=== PATIENT | female | born 1945 | race Caucasian/White ===

== ENCOUNTER 2017-11-26 11:00 | Inpatient (IN) | payer MEDICARE ==
--- NOTE | 2017-11-26 11:49 | ER Document Report ---
ED General - General Chief Complaint: Shortness Of Breath Stated Complaint: SHORTNESS OF BREATH Time Seen by Provider: 11/26/17 11:37 Notes: 72-year-old female presents with cough, productive, constant, it. Initially associated with vomiting, now she only vomits "when I eat." No abdominal pain or weakness. She was seen at [facility], did not get a chest x-ray, was diagnosed with gastroenteritis, and was sent home after labs were drawn. She was then told today to come in because her labs were abnormal. She is not exactly sure which labs are abnormal. She denies shortness of breath. No fevers. 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 - Related Data Allergies/Adverse Reactions: Eefsgnl-Hfu-Qaf Reductase Inhibitor Allergy (Verified 11/26/17 11:07) Sulfa (Sulfonamide Antibiotics) Allergy (Verified 11/26/17 11:07) Past Medical History - Social History Smoking Status: Never Smoker Family History: None Review of Systems - Review of Systems Notes: REVIEW OF SYSTEMS GEN: Denies fever, chills, weight loss ENT: Denies sore throat, nasal discharge, ear pain EYES: Denies blurry vision, eye pain, discharge CV: Denies chest pain, palpitations, edema RESP: Cough no shortness of breath GI: Denies abdominal pain, n positive nausea no vomiting MSK: Denies joint pain/swelling, edema, SKIN: Denies rash, skin lesions LYMPH: Denies swollen glands/lymph nodes NEURO: Denies headache, focal weakness or numbness, dizziness PSYCH: Denies depression, suicidal or homicidal ideation PHYSICAL EXAMINATION General: No acute distress, well-nourished Head: Atraumatic, normocephalic ENT: Mouth normal, oropharynx moist, no exudates or tonsillar enlargement Eyes: Conjunctiva normal, pupils equal, lids normal Neck: No JVD, supple, no guarding CVS: Normal rate, regular rhythm, no murmurs Resp: No resp distress, equal and normal breath sounds bilaterally. Wet cough. GI: Nondistended, soft, no tenderness to palpation, no rebound or guarding Ext: No deformities, no edema, normal range of motion in upper and lower ext Back: No CVA or midline TTP Skin: No rash, warm Lymphatic: No lymphadeopathy noted Neuro: Awake, alert. Face symmetric. GCS 15. Physical Exam - Vital signs Vitals: Resp BP Pulse Ox 17 127/62 H 97 11/26/17 12:27 11/26/17 12:27 11/26/17 12:27 Course - Re-evaluation Re-evalutation: 11/26/17 11:49 72-year-old female presents with productive cough without hypoxia or focal lung findings. Apparently she had abnormal labs as an outpatient. Clinically she has bronchitis versus mild pneumonia, I doubt sepsis. She has some nausea but has not vomited and her abdominal exam is benign today. I will repeat her labs and get a chest x-ray to rule out developing pneumonia or effusion. This does not sound cardiac. 11/26/17 12:20. Platelets are 2-1/2 million a white count is significantly elevated. Patient also has hypokalemia. Formal lab results are pending. ordered potassium and magnesium repletion. 11/26/17 12:[address] Lombardi from oncology does not think this reflects acute leukemia but rather a myeloproliferative disorder. Patient will be admitted for elective light repletion and dehydration and he will consult. [facility] x-ray looks clear, do not think she needs antibiotics at this time. - Vital Signs Vital signs: Temp Pulse Resp BP Pulse Ox 17 127/62 H 97 11/26/17 12:27 11/26/17 12:27 11/26/17 12:27 - Laboratory Result Diagrams: 11/26/17 11:20 11/26/17 11:20 Laboratory results interpreted by me: 11/26/17 11/26/17 11:20 11:20 WBC 32.0 H* Hgb 10.7 L Hct 32.4 L RDW 15.4 H Plt Count 2851 H* Seg Neuts % (Manual) 91 H Band Neutrophils % 2 L Lymphocytes % (Manual) 5 L Monocytes % (Manual) 2 L Abs Neuts (Manual) 29.8 H Sodium 131.4 L Potassium 2.6 L* Chloride 90 L BUN 40 H Est GFR (Non-Af Amer) 55 L Critical Care Note - Critical Care Note Total time excluding time spent on procedures (mins): 32 - The above patient is critically ill. Not including procedures, but including direct re-evaluations, speaking with patient and/or consultants, interpreting results, and documenting , I spent the total amount of minute listed listed above on critical care time Discharge - Discharge Clinical Impression: Hypokalemia, Thrombocytosis Condition: Fair Disposition: ADMITTED INPATIENT Admitting Provider: Hospitalist Unit Admitted: Medical Floor
[2017-11-26 11:55] LABS: HEMATOCRIT 32.4 % (36.0-47.0); HEMOGLOBIN 10.7 g/dL (12.0-15.5); MEAN CORPUSCULAR HEMOGLOBIN 28.7 pg (27.0-33.4); MEAN CORPUSCULAR HGB CONC 32.9 g/dL (32.0-36.0); MEAN CORPUSCULAR VOLUME 87 fl (80-97); RED BLOOD COUNT 3.72 10^6/uL (3.72-5.28); RED CELL DISTRIBUTION WIDTH 15.4 % (11.5-14.0)
[2017-11-26 12:00] LABS: PLATELET COUNT 2851 10^3/uL (150-450)
[2017-11-26 12:12] LABS: ANION GAP 16 (5-19); BLOOD UREA NITROGEN 40 mg/dL (7-20); CALCIUM 9.5 mg/dL (8.4-10.2); CARBON DIOXIDE 25 mmol/L (22-30); CHLORIDE 90 mmol/L (98-107); GLUCOSE 89 mg/dL (75-110); SODIUM 131.4 mmol/L (137-145)
[2017-11-26 12:14] LABS: POTASSIUM 2.6 mmol/L (3.6-5.0)
[2017-11-26] MEDS ORDERED: NORMAL SALINE 1000 ML 1,000 ML IV ONE (12:19)
[2017-11-26] MEDS ORDERED: MAGNESIUM SULFATE/D5W 1 GM/100 ML RTUPB IV ONE (12:19)
[2017-11-26 12:22] LABS: ABSOLUTE LYMPHOCYTES# (MANUAL) 1.6 10^3/uL (0.5-4.7); ABSOLUTE MONOCYTES # (MANUAL) 0.6 10^3/uL (0.1-1.4); ABSOLUTE NEUTROPHILS# (MANUAL) 29.8 10^3/uL (1.7-8.2); ANISOCYTOSIS SLIGHT; BAND NEUTROPHILS % (MANUAL) 2 % (3-5); BASOPHILS % (MANUAL) 0 % (0-2); EOSINOPHILS % (MANUAL) 0 % (0-6); HYPOCHROMASIA SLIGHT; LYMPHOCYTES % (MANUAL) 5 % (13-45); MONOCYTES % (MANUAL) 2 % (3-13); PLATELET COMMENT INCREASED; POLYCHROMASIA SLIGHT; SEGMENTED NEUTROPHILS % (MAN) 91 % (42-78); TOTAL CELLS COUNTED 100; TOXIC GRANULATION 1+; TOXIC VACUOLATION PRESENT
[2017-11-26] MEDS: POTASSI CL 20 MEQ/50 ML RIDER 20 MEQ/50 ML RTUPB IV SCH ×3 (12:34→19:08)
[2017-11-26] MEDS ORDERED: ACETAMINOPHEN 325 MG TABLET PO PRN (12:35)
[2017-11-26] MEDS ORDERED: POTASSIUM CHLORIDE 20 MEQ/15 ML UDCUP PO ONE (12:58)
--- NOTE | 2017-11-26 13:03 | RADIOLOGY REPORT (SQ) ---
EXAM DESCRIPTION: CHEST SINGLE VIEW COMPLETED DATE/TIME: 11/26/2017 12:17 pm REASON FOR STUDY: shortness or breatg COMPARISON: None. EXAM PARAMETERS: NUMBER OF VIEWS: One view. TECHNIQUE: Single frontal radiographic view of the chest acquired. RADIATION DOSE: NA LIMITATIONS: None. FINDINGS: LUNGS AND PLEURA: No opacities, masses or pneumothorax. No pleural effusion. MEDIASTINUM AND HILAR STRUCTURES: No masses. Contour normal. HEART AND VASCULAR STRUCTURES: Heart normal in size. Normal vasculature. BONES: No acute findings. HARDWARE: None in the chest. OTHER: No other significant finding. IMPRESSION: NO ACUTE RADIOGRAPHIC FINDING IN THE CHEST. TECHNICAL DOCUMENTATION: JOB ID: [id number] [employer]- All Rights Reserved
[2017-11-26] MEDS ORDERED: ENOXAPARIN SODIUM INJ 40 MG/0.4 ML DISP.SYRIN SUBCUT ONE (20:00)
[2017-11-26] MEDS: POTASSI CL 40 MEQ/NS 1L 1,000 ML IV PRN (20:03)
[2017-11-27] MEDS ORDERED: LEVOTHYROXINE SODIUM 0.1 MG TABLET PO SCH (06:00)
[2017-11-27] MEDS ORDERED: LEVOTHYROXINE SODIUM 0.025 MG TABLET PO SCH (06:00)
[2017-11-27] MEDS: LANSOPRAZOLE 30 MG TAB.RAP.DR PO SCH (06:23)
[2017-11-27 07:08] LABS: HEMATOCRIT 26.4 % (36.0-47.0); HEMOGLOBIN 8.8 g/dL (12.0-15.5); MEAN CORPUSCULAR HEMOGLOBIN 28.9 pg (27.0-33.4); MEAN CORPUSCULAR HGB CONC 33.1 g/dL (32.0-36.0); MEAN CORPUSCULAR VOLUME 87 fl (80-97); RED BLOOD COUNT 3.03 10^6/uL (3.72-5.28)
[2017-11-27 07:27] LABS: ANION GAP 10 (5-19); BLOOD UREA NITROGEN 25 mg/dL (7-20); CARBON DIOXIDE 24 mmol/L (22-30); CHLORIDE 100 mmol/L (98-107); GLUCOSE 133 mg/dL (75-110); MAGNESIUM 2.2 mg/dL (1.6-2.3); SODIUM 133.5 mmol/L (137-145)
[2017-11-27 07:35] LABS: POTASSIUM 4.7 mmol/L (3.6-5.0)
[2017-11-27 07:42] LABS: FREE T3 1.51 pg/mL (2.77-5.27); FREE T4 (FREE THYROXINE) 2.73 ng/dL (0.78-2.19)
[2017-11-27 07:56] LABS: THYROID STIMULATING HORMONE 0.14 uIU/mL (0.47-4.68)
[2017-11-27 08:02] LABS: PLATELET COUNT 2113 10^3/uL (150-450)
[2017-11-27] MEDS: ASPIRIN 81 MG TABLET, CHEWABLE PO SCH (09:16)
[2017-11-27] MEDS: POTASSI CL 40 MEQ/NS 1L 1,000 ML IV PRN (09:16)
[2017-11-27] MEDS: FENOFIBRATE NANOCRYSTALLIZED 48 MG TABLET PO SCH (09:16)
[2017-11-27] MEDS ORDERED: LEVOTHYROXINE SODIUM 0.125 MG PO SCH (10:00)
[2017-11-27] MEDS ORDERED: FENOFIBRIC ACID PO SCH (10:00)
[2017-11-27] MEDS ORDERED: ENOXAPARIN SODIUM INJ 40 MG/0.4 ML DISP.SYRIN SUBCUT SCH (10:00)
[2017-11-27] MEDS: NORMAL SALINE 1000 ML 1,000 ML IV PRN ×2 (13:34→23:25)
[2017-11-27] MEDS ORDERED: BENZONATATE 100 MG CAPSULE PO ONE (14:45)
[2017-11-27] MEDS: BENZONATATE 100 MG CAPSULE PO SCH (21:22)
[2017-11-27] MEDS: HYDROCODONE BIT/HOMATROPINE 5-1.5 MG TABLET PO PRN (23:22)
[2017-11-28 04:49] LABS: MEAN CORPUSCULAR HEMOGLOBIN 28.9 pg (27.0-33.4); MEAN CORPUSCULAR HGB CONC 33.1 g/dL (32.0-36.0); MEAN CORPUSCULAR VOLUME 87 fl (80-97); RED BLOOD COUNT 2.75 10^6/uL (3.72-5.28); RED CELL DISTRIBUTION WIDTH 15.1 % (11.5-14.0); WHITE BLOOD COUNT 21.3 10^3/uL (4.0-10.5)
[2017-11-28 05:02] LABS: ANION GAP 6 (5-19); BLOOD UREA NITROGEN 15 mg/dL (7-20); CALCIUM 8.8 mg/dL (8.4-10.2); CARBON DIOXIDE 22 mmol/L (22-30); CHLORIDE 109 mmol/L (98-107); GLUCOSE 103 mg/dL (75-110); MAGNESIUM 1.8 mg/dL (1.6-2.3); POTASSIUM 4.3 mmol/L (3.6-5.0); SODIUM 137.3 mmol/L (137-145)
[2017-11-28 05:08] LABS: ABSOLUTE LYMPHOCYTES# (MANUAL) 2.1 10^3/uL (0.5-4.7); ABSOLUTE MONOCYTES # (MANUAL) 1.7 10^3/uL (0.1-1.4); ABSOLUTE NEUTROPHILS# (MANUAL) 17.3 10^3/uL (1.7-8.2); BAND NEUTROPHILS % (MANUAL) 2 % (3-5); BASOPHILS % (MANUAL) 0 % (0-2); EOSINOPHILS % (MANUAL) 1 % (0-6); LYMPHOCYTES % (MANUAL) 10 % (13-45); MONOCYTES % (MANUAL) 8 % (3-13); SEGMENTED NEUTROPHILS % (MAN) 79 % (42-78); TOTAL CELLS COUNTED 100
[2017-11-28 05:09] LABS: ANISOCYTOSIS 1+; PLATELET COMMENT INCREASED; TOXIC GRANULATION 1+
[2017-11-28 05:12] LABS: HEMOGLOBIN 7.9 g/dL (12.0-15.5); PLATELET COUNT 1722 10^3/uL (150-450)
[2017-11-28] MEDS: BENZONATATE 100 MG CAPSULE PO SCH ×3 (05:34→21:53)
[2017-11-28] MEDS: LANSOPRAZOLE 30 MG TAB.RAP.DR PO SCH (05:34)
[2017-11-28] MEDS: NORMAL SALINE 1000 ML 1,000 ML IV PRN ×2 (05:38→10:02)
[2017-11-28] MEDS: FENOFIBRATE NANOCRYSTALLIZED 48 MG TABLET PO SCH (10:02)
[2017-11-28] MEDS: ASPIRIN 81 MG TABLET, CHEWABLE PO SCH (10:02)
[2017-11-28] MEDS ORDERED: NORMAL SALINE 250 ML IV PRN ×3 (10:52→10:53)
[2017-11-28] MEDS ORDERED: DIPHENHYDRAMINE HCL 25 MG CAPSULE PO PRN (10:53)
[2017-11-28] MEDS ORDERED: FUROSEMIDE 20 MG TABLET PO PRN (10:53)
[2017-11-28] MEDS ORDERED: ACETAMINOPHEN 325 MG TABLET PO PRN (10:53)
[2017-11-28] MEDS ORDERED: PANTOPRAZOLE SODIUM 80 MG in NORMAL SALINE 100 ML IV ONE ×2 (10:55→13:00)
[2017-11-28 11:13] LABS: IRON(TIBC) 64.9 ug/dL (37-170)
[2017-11-28 11:17] LABS: ABSOLUTE RETICS # 0.029 10^6/uL (0.028-0.122); RETICULOCYTE COUNT (AUTO) 1.06 % (0.66-2.85)
--- NOTE | 2017-11-28 11:58 | PDOC CONSULTATION ---
Consultation Consult Date: 11/28/17 Attending physician:: LE DEL TORO Consult reason:: Leukocytosis, anemia, thrombocytosis History of Present Illness Admission Date/PCP: 11/26/17 12:42 Patient complains of: Weakness, dark stool, nausea and vomiting History of Present Illness: 72-year-old female, who does not really have history of much medical problems, except diverticulitis, last colonoscopy was 8 years ago. Last week she began feeling very fatigued, apparently her coworkers noted that she should really go to the doctor, soon after feeling weak she began having nausea and vomiting, as well as persistent passing of dark stool, this began about 1 week ago and continued through [place], the day after [place] patient went to her PCP, was felt to have a gastroenteritis ongoing, and was recommended to have good oral hydration, did have a CBC drawn and was contacted about it the next day. The CBC indicated a total white count of nearly 30,000, hemoglobin 10, but platelets were over 2 million. She was recommended for admission, she came to the ED, at that time she seemed very weak, and repeat CBC indicated the same counts. Since being in she has had good hydration, but she continued to pass dark stools, she had a stool study this morning and Hemoccult was positive. Although the nausea was discontinued, and she is able to keep down clear liquids over the last 24 hours. She has passed gas over the last 24 hours as well. Past Medical History Cardiac Medical History: Reports: None Pulmonary Medical History: Reports: None EENT Medical History: Reports: None GI Medical History: Reports: Diverticulitis Hematology: Reports: None Past Surgical History Past Surgical History: Reports: Other - Colonoscopy Social History Information Source: Patient Smoking Status: Never Smoker Frequency of Alcohol Use: Rare Hx Recreational Drug Use: No Drugs: None Hx Prescription Drug Abuse: No - Advance Directive Resuscitation Status: Full Code Family History Family History: None Parental Family History Reviewed: Yes Children Family History Reviewed: Yes Sibling(s) Family History Reviewed.: Yes Medication/Allergy Home Medications: Fenofibric Acid [Fibricor] 105 mg PO DAILY 11/26/17 Levothyroxine Sodium [Synthroid] 0.125 mg PO DAILY 11/26/17 Losartan/Hydrochlorothiazide [Losartan-Hctz 100-25 mg Tab] 1 tab PO DAILY Allergies/Adverse Reactions: Geebadt-Rrx-Rlc Reductase Inhibitor Allergy (Verified 11/26/17 11:07) Sulfa (Sulfonamide Antibiotics) Allergy (Verified 11/26/17 11:07) Review of Systems Constitutional: PRESENT: fatigue, weakness Cardiovascular: PRESENT: dyspnea on exertion Respiratory: PRESENT: cough, dyspnea Gastrointestinal: PRESENT: melena, nausea Neurological: PRESENT: weakness Physical Exam Vital Signs: Temp Pulse Resp BP Pulse Ox 98.4 F 69 22 H 134/57 H 95 11/28/17 07:45 11/28/17 07:45 11/28/17 07:45 11/28/17 07:45 11/28/17 07:45 Intake & Output 11/27/17 11/28/17 11/29/17 06:59 06:59 06:59 Intake Total 940 3967 Balance 940 3967 Weight 66.1 kg 68.2 kg General appearance: PRESENT: no acute distress, well-developed, well-nourished Head exam: PRESENT: atraumatic, normocephalic Eye exam: PRESENT: conjunctiva pink, EOMI, PERRLA. ABSENT: scleral icterus Ear exam: PRESENT: normal external ear exam Mouth exam: PRESENT: moist, tongue midline Neck exam: ABSENT: carotid bruit, JVD, lymphadenopathy, thyromegaly Respiratory exam: PRESENT: clear to auscultation mane. ABSENT: rales, rhonchi, wheezes Cardiovascular exam: PRESENT: RRR. ABSENT: diastolic murmur, rubs, systolic murmur Pulses: PRESENT: normal dorsalis pedis pul Vascular exam: PRESENT: normal capillary refill GI/Abdominal exam: PRESENT: normal bowel sounds, soft. ABSENT: distended, guarding, mass, organolmegaly, rebound, tenderness Rectal exam: PRESENT: deferred Extremities exam: PRESENT: full ROM. ABSENT: calf tenderness, clubbing, pedal edema Neurological exam: PRESENT: alert, awake, oriented to person, oriented to place , oriented to time, oriented to situation, CN II-XII grossly intact. ABSENT: motor sensory deficit Psychiatric exam: PRESENT: appropriate affect, normal mood. ABSENT: homicidal ideation, suicidal ideation Skin exam: PRESENT: dry, intact, warm. ABSENT: cyanosis, rash Results Laboratory Results: 11/28/17 04:26 11/28/17 04:26 11/28/17 11/28/17 11/28/17 04:26 04:26 04:26 WBC 21.3 H RBC 2.75 L Hgb 7.9 L Hct 24.0 L MCV 87 MCH 28.9 MCHC 33.1 RDW 15.1 H Plt Count 1722 H* Seg Neutrophils % Not Reportable Lymphocytes % Not Reportable Monocytes % Not Reportable Eosinophils % Not Reportable Basophils % Not Reportable Absolute Neutrophils Not Reportable Absolute Lymphocytes Not Reportable Absolute Monocytes Not Reportable Absolute Eosinophils Not Reportable Absolute Basophils Not Reportable Retic Count (auto) 1.06 Absolute Retic 0.029 Sodium 137.3 Potassium 4.3 Chloride 109 H Carbon Dioxide 22 Anion Gap 6 BUN 15 Creatinine 0.66 Est GFR ( Amer) > 60 Est GFR (Non-Af Amer) > 60 Glucose 103 Calcium 8.8 Magnesium 1.8 Stool Occult Blood Blood Type Antibody Screen 11/28/17 11/28/17 06:10 10:13 WBC RBC Hgb Hct MCV MCH MCHC RDW Plt Count Seg Neutrophils % Lymphocytes % Monocytes % Eosinophils % Basophils % Absolute Neutrophils Absolute Lymphocytes Absolute Monocytes Absolute Eosinophils Absolute Basophils Retic Count (auto) Absolute Retic Sodium Potassium Chloride Carbon Dioxide Anion Gap BUN Creatinine Est GFR ( Amer) Est GFR (Non-Af Amer) Glucose Calcium Magnesium Stool Occult Blood POSITIVE Blood Type A POSITIVE Antibody Screen NEGATIVE Impressions: Chest X-Ray 11/26/17 11:37 IMPRESSION: NO ACUTE RADIOGRAPHIC FINDING IN THE CHEST. Assessment & Plan - Diagnosis (1) Neutrophilic leukocytosis Is this a current diagnosis for this admission?: Yes Plan: Probably combination of reactive as well as possibly myeloproliferative. We have sent a FISH for BCR/ABL, we have sent a JA K2 mutational analysis, we have sent to flow cytometry. But certainly if she is having a GI bleed and/or possible abscess or even some sort of a colon cancer, That could cause a reactive process. (2) Thrombocytosis Is this a current diagnosis for this admission?: Yes Plan: Also possible to be a reactive process. It is coming down. It could be because of iron deficiency as well. (3) Symptomatic anemia Is this a current diagnosis for this admission?: Yes Plan: She is having symptomatic anemia, iron studies pending, but likely to be iron deficient because of possible GI bleed, plan for iron studies as well as blood transfusion. We also need to do CT of the chest abdomen and pelvis, the abdomen pelvis because of the anemia and possible blood loss, she could have something like an abscess or even a colon cancer, CT of the chest because of the chronic cough that she has had over the last 4-6 weeks. (4) GI bleed Qualifiers: GI bleed type/associated pathology: melena Qualified Code(s): K92.1 - Melena Is this a current diagnosis for this admission?: Yes Plan: Plan for transfusion today, workup with CT imaging, unfortunately we do not have GI information technology project manager at present, but she does not seem to be having an acute bleed, so no acute indication for endoscopy right now. - Time Time Spent: Greater than 70 Minutes - Inpatient Certification Based on my medical assessment, after consideration of the patient's comorbidities, presenting symptoms, or acuity I expect that the services needed warrant INPATIENT care.: Yes I certify that my determination is in accordance with my understanding of Medicare's requirements for reasonable and necessary INPATIENT services [42 CFR 412.3e].: Yes Medical Necessity: Need For Continuous Telemetry Monitoring, Risk of Complication if Not Cared For in Hospital, Other - Need for blood transfusion
[2017-11-28 12:20] LABS: FOLATE 5.18 ng/mL (>2.76)
--- NOTE | 2017-11-28 15:04 | RADIOLOGY REPORT (SQ) ---
EXAM DESCRIPTION: CT CHEST WITH COMPLETED DATE/TIME: 11/28/2017 2:13 pm REASON FOR STUDY: cough COMPARISON: Chest radiograph TECHNIQUE: CT scan of the chest performed using helical scanning technique with dynamic intravenous contrast injection. Images reviewed with lung, soft tissue and bone windows. Reconstructed coronal and sagittal MPR images reviewed. All images stored on PACS. All CT scanners at this facility use dose modulation, iterative reconstruction, and/or weight based d osing when appropriate to reduce radiation dose to as low as reasonably achievable (ALARA). [facility]: Dose Right [facility]: CareDose [facility]: Dose Right [facility]: Teradose 4D [facility]: [employer] CONTRAST TYPE AND DOSE: 74 Isovue 370- low osmolar. RENAL FUNCTION: GFR > 60. RADIATION DOSE: CT Rad equipment meets quality standard of care and radiation dose reduction techniq ues were employed. CTDIvol: 8.6 - 14.1 mGy. DLP: 1219 mGy-cm. . LIMITATIONS: None. FINDINGS: LUNGS AND PLEURA: No discrete opacities. Small left pleural effusion. HILAR AND MEDIASTINAL STRUCTURES: No identified masses or abnormal nodes. HEART AND VASCULAR STRUCTURES: No aneurysm or dissection. No central pulmonary emboli. No pericardi al effusion. Coronary artery calcification. HARDWARE: None in the chest. UPPER ABDOMEN: See separate report of the CT of the abdomen. THYROID AND OTHER SOFT TISSUES: No masses. No adenopathy. BONES: No significant finding. OTHER: No other significant finding. IMPRESSION: Small left pleural effusion. Otherwise negative. TECHNICAL DOCUMENTATION: JOB ID: [id number] Quality ID # [id number]: Final reports with documentation of one or more dose reduction techniques (e.g., Au tomated exposure control, adjustment of the mA and/or kV according to patient size, use of iterative reconstruction technique) 2010 [employer]- All Rights Reserved
--- NOTE | 2017-11-28 15:09 | RADIOLOGY REPORT (SQ) ---
EXAM DESCRIPTION: CT ABD/PELVIS WITH IV ORAL COMPLETED DATE/TIME: 11/28/2017 2:13 pm REASON FOR STUDY: leukocytosis COMPARISON: None. TECHNIQUE: CT scan of the abdomen and pelvis performed using helical scanning technique with dynamic intravenous contrast injection. With oral contrast. Images reviewed with lung, soft tissue, and bon e windows. Reconstructed coronal and sagittal MPR images reviewed. Delayed images for evaluation of t he urinary system also acquired. All images stored on PACS. All CT scanners at this facility use dose modulation, iterative reconstruction, and/or weight based d osing when appropriate to reduce radiation dose to as low as reasonably achievable (ALARA). [facility]: Dose Right [facility]: CareDose [facility]: Dose Right [facility]: Teradose 4D [facility]: [employer]EX [facility] CONTRAST TYPE AND DOSE: contrast/concentration: Isovue 370.00 mg/ml; Total Contrast Delivered: 74.0 ml; Total Saline Delivered: 66.0 ml RENAL FUNCTION: GFR > 60. RADIATION DOSE: . LIMITATIONS: None. FINDINGS: LOWER CHEST: See separate report of the CT of the chest. LIVER: Normal size. No masses. No dilated ducts. SPLEEN: Normal size. No focal lesions. PANCREAS: Diffuse peripancreatic fluid and fat stranding. Fluid extends along the left gutter. No f ocal mass. GALLBLADDER: No identified stones by CT criteria. No inflammatory changes to suggest cholecystitis. ADRENAL GLANDS: No significant masses or asymmetry. RIGHT KIDNEY AND URETER: No solid masses. No significant calcifications. No hydronephrosis or hyd roureter. LEFT KIDNEY AND URETER: No solid masses. No significant calcifications. No hydronephrosis or hydr oureter. AORTA AND VESSELS: No aneurysm. No dissection. Renal arteries, SMA, celiac without stenosis. RETROPERITONEUM: No retroperitoneal adenopathy, hemorrhage or masses. BOWEL AND PERITONEAL CAVITY: No masses or inflammatory changes. No free fluid or peritoneal masses. Diffuse diverticulosis particularly in the sigmoid colon. APPENDIX: Not visualized. PELVIS: No significant. masses. Bladder normal. Minimal free fluid. 1 cm left ovarian cyst. ABDOMINAL WALL: No masses. No hernias. BONES: No significant or acute findings. OTHER: No other significant finding. IMPRESSION: Diffuse pancreatitis with peripancreatic fat stranding and fluid along the left gutter. No pancreatic masses. COMMENT: Followup of asymptomatic adnexal cysts found on CT or MRI in postmenopausal patients Late postmenopausal (>55 yo) *Benign cyst ? 3 cm: No followup Note: If cyst is clinically symptomatic or otherwise concerning, other followup may be necessary. Menopause is considered age 50 by radiologist unless date of last period is known. Based on Managing Incidental Findings on Abdominal and Pelvic CT and MRI, Part 1: White Paper of the ACR Incidental Fi ndings Committee II on Adnexal Findings J Am Karen Radiol 2013;10:675-681. TECHNICAL DOCUMENTATION: JOB ID: [id number] Quality ID # [id number]: Final reports with documentation of one or more dose reduction techniques (e.g., Au tomated exposure control, adjustment of the mA and/or kV according to patient size, use of iterative reconstruction technique) 2010 [employer]- All Rights Reserved
[2017-11-28] MEDS: NORMAL SALINE 100 ML with PANTOPRAZOLE SODIUM 80 MG IV PRN ×2 (17:46)
[2017-11-28 19:44] LABS: HEMATOCRIT 27.7 % (36.0-47.0); HEMOGLOBIN 9.4 g/dL (12.0-15.5); MEAN CORPUSCULAR HEMOGLOBIN 29.5 pg (27.0-33.4); MEAN CORPUSCULAR VOLUME 87 fl (80-97); RED CELL DISTRIBUTION WIDTH 15.1 % (11.5-14.0); WHITE BLOOD COUNT 23.2 10^3/uL (4.0-10.5)
[2017-11-28 19:58] LABS: PLATELET COUNT 1799 10^3/uL (150-450)
[2017-11-28 20:03] LABS: ABSOLUTE LYMPHOCYTES# (MANUAL) 2.3 10^3/uL (0.5-4.7); ABSOLUTE MONOCYTES # (MANUAL) 2.6 10^3/uL (0.1-1.4); ABSOLUTE NEUTROPHILS# (MANUAL) 17.6 10^3/uL (1.7-8.2); BAND NEUTROPHILS % (MANUAL) 3 % (3-5); BASOPHILS % (MANUAL) 0 % (0-2); EOSINOPHILS % (MANUAL) 3 % (0-6); LYMPHOCYTES % (MANUAL) 10 % (13-45); MONOCYTES % (MANUAL) 11 % (3-13); SEGMENTED NEUTROPHILS % (MAN) 73 % (42-78); TOTAL CELLS COUNTED 100
[2017-11-28 20:04] LABS: ANISOCYTOSIS SLIGHT; PLATELET COMMENT INCREASED; PLATELET LARGE PRESENT; POIKILOCYTOSIS SLIGHT; TOXIC GRANULATION SLIGHT
[2017-11-28] MEDS: HYDROCODONE BIT/HOMATROPINE 5-1.5 MG TABLET PO PRN (20:41)
[2017-11-29] MEDS: NORMAL SALINE 100 ML with PANTOPRAZOLE SODIUM 80 MG IV PRN ×4 (04:00→16:21)
[2017-11-29 05:54] LABS: HEMATOCRIT 26.9 % (36.0-47.0); HEMOGLOBIN 9.2 g/dL (12.0-15.5); MEAN CORPUSCULAR HEMOGLOBIN 29.3 pg (27.0-33.4); MEAN CORPUSCULAR VOLUME 86 fl (80-97); RED BLOOD COUNT 3.13 10^6/uL (3.72-5.28); RED CELL DISTRIBUTION WIDTH 15.5 % (11.5-14.0); WHITE BLOOD COUNT 23.1 10^3/uL (4.0-10.5)
[2017-11-29] MEDS: BENZONATATE 100 MG CAPSULE PO SCH ×3 (06:12→22:11)
[2017-11-29 06:15] LABS: PLATELET COUNT 1624 10^3/uL (150-450)
[2017-11-29 06:26] LABS: ANION GAP 9 (5-19); BLOOD UREA NITROGEN 9 mg/dL (7-20); CALCIUM 8.4 mg/dL (8.4-10.2); CARBON DIOXIDE 22 mmol/L (22-30); CHLORIDE 103 mmol/L (98-107); GLUCOSE 98 mg/dL (75-110); MAGNESIUM 1.4 mg/dL (1.6-2.3); SODIUM 133.9 mmol/L (137-145)
[2017-11-29 06:29] LABS: POTASSIUM 3.9 mmol/L (3.6-5.0)
[2017-11-29] MEDS: MAGNESIUM SULFATE/D5W 1 GM/100 ML RTUPB IV SCH ×3 (08:58→11:23)
[2017-11-29] MEDS: FENOFIBRATE NANOCRYSTALLIZED 48 MG TABLET PO SCH (08:58)
--- NOTE | 2017-11-29 11:02 | PDOC PROGRESS REPORT ---
Subjective Progress Note for:: 11/29/17 Subjective:: Patient had CT of the chest abdomen pelvis yesterday, after drinking the oral contrast she had continuous diarrhea over the last 24 hours, sometimes still having dark stool, we went over the CT results. CT of the chest was unremarkable, but CT of the abdomen/pelvis indicated diffuse pancreatitis as well as severe diverticulosis of the sigmoid colon. I had a long conversation with the patient this morning, spent greater than 45 minutes in discussion, she does have known hypertriglyceridemia, is on fenofibrate for that, of note, the patient's father also had hypertriglyceridemia, but actually had normal cholesterol, and she tells me they were "never able to get that under control". Reason For Visit: HYPOKALEMIA,HYPONATREMIA,LEUKOCYTOSIS,THROMBYCYTOS Physical Exam Vital Signs: Temp Pulse Resp BP Pulse Ox 97.5 F 74 16 134/49 H 97 11/29/17 08:26 11/29/17 08:26 11/29/17 08:26 11/29/17 08:26 11/29/17 08:26 Intake & Output 11/28/17 11/29/17 11/30/17 06:59 06:59 06:59 Intake Total 3967 3483 Output Total 2 Balance 3967 3481 Weight 68.2 kg 70.2 kg General appearance: PRESENT: no acute distress, well-developed, well-nourished Head exam: PRESENT: atraumatic, normocephalic Eye exam: PRESENT: conjunctiva pink, EOMI, PERRLA. ABSENT: scleral icterus Ear exam: PRESENT: normal external ear exam Mouth exam: PRESENT: moist, tongue midline Neck exam: ABSENT: carotid bruit, JVD, lymphadenopathy, thyromegaly Respiratory exam: PRESENT: clear to auscultation mane. ABSENT: rales, rhonchi, wheezes Cardiovascular exam: PRESENT: RRR. ABSENT: diastolic murmur, rubs, systolic murmur Pulses: PRESENT: normal dorsalis pedis pul Vascular exam: PRESENT: normal capillary refill GI/Abdominal exam: PRESENT: normal bowel sounds, soft. ABSENT: distended, guarding, mass, organolmegaly, rebound, tenderness Rectal exam: PRESENT: deferred Extremities exam: PRESENT: full ROM. ABSENT: calf tenderness, clubbing, pedal edema Neurological exam: PRESENT: alert, awake, oriented to person, oriented to place , oriented to time, oriented to situation, CN II-XII grossly intact. ABSENT: motor sensory deficit Psychiatric exam: PRESENT: appropriate affect, normal mood. ABSENT: homicidal ideation, suicidal ideation Skin exam: PRESENT: dry, intact, warm. ABSENT: cyanosis, rash Results Laboratory Results: 11/29/17 04:37 11/29/17 04:37 11/28/17 11/28/17 11/28/17 04:26 04:26 06:10 WBC RBC Hgb Hct MCV MCH MCHC RDW Plt Count Seg Neutrophils % Lymphocytes % Monocytes % Eosinophils % Basophils % Absolute Neutrophils Absolute Lymphocytes Absolute Monocytes Absolute Eosinophils Absolute Basophils Retic Count (auto) 1.06 Absolute Retic 0.029 Sodium Potassium Chloride Carbon Dioxide Anion Gap BUN Creatinine Est GFR ( Amer) Est GFR (Non-Af Amer) Glucose Calcium Magnesium Iron 64.9 TIBC 175 L % Saturation 37 Ferritin 456.00 H Vitamin B12 977.0 H Folate 5.18 Blood Type A POSITIVE Antibody Screen NEGATIVE 11/28/17 11/29/17 11/29/17 19:25 04:37 04:37 WBC 23.2 H 23.1 H RBC 3.20 L 3.13 L Hgb 9.4 L 9.2 L Hct 27.7 L 26.9 L MCV 87 86 MCH 29.5 29.3 MCHC 34.0 34.0 RDW 15.1 H 15.5 H Plt Count 1799 H* 1624 H* Seg Neutrophils % Not Reportable Lymphocytes % Not Reportable Monocytes % Not Reportable Eosinophils % Not Reportable Basophils % Not Reportable Absolute Neutrophils Not Reportable Absolute Lymphocytes Not Reportable Absolute Monocytes Not Reportable Absolute Eosinophils Not Reportable Absolute Basophils Not Reportable Retic Count (auto) Absolute Retic Sodium 133.9 L Potassium 3.9 Chloride 103 Carbon Dioxide 22 Anion Gap 9 BUN 9 Creatinine 0.64 Est GFR ( Amer) > 60 Est GFR (Non-Af Amer) > 60 Glucose 98 Calcium 8.4 Magnesium 1.4 L Iron TIBC % Saturation Ferritin Vitamin B12 Folate Blood Type Antibody Screen Impressions: Chest X-Ray 11/26/17 11:37 IMPRESSION: NO ACUTE RADIOGRAPHIC FINDING IN THE CHEST. Abdomen/Pelvis CT 11/28/17 00:00 IMPRESSION: Diffuse pancreatitis with peripancreatic fat stranding and fluid along the left gutter. No pancreatic masses. Chest CT 11/28/17 00:00 IMPRESSION: Small left pleural effusion. Otherwise negative. Assessment & Plan - Diagnosis (1) Neutrophilic leukocytosis Is this a current diagnosis for this admission?: Yes Plan: Improved, as noted previously likely multifactorial, reactive as well as possible bone marrow issue (2) Thrombocytosis Is this a current diagnosis for this admission?: Yes Plan: Also reactive but also probably inherent (3) Symptomatic anemia Is this a current diagnosis for this admission?: Yes Plan: Improved after transfusion, iron studies indicated normal ferritin so no IV iron would help her. (4) GI bleed Qualifiers: GI bleed type/associated pathology: melena Qualified Code(s): K92.1 - Melena Is this a current diagnosis for this admission?: Yes Plan: Needs GI consult, that will be placed, currently no GI on-call, continue with IV PPI. (5) Acute pancreatitis Qualifiers: Pancreatitis type: other Acute pancreatitis complication: no infection or necrosis Qualified Code(s): K85.80 - Other acute pancreatitis without necrosis or infection Is this a current diagnosis for this admission?: Yes Plan: Pancreatitis secondary to most likely hypertriglyceridemia, the hospitalist will take care of workup and treatment for this. - Time Time Spent with patient: 35 or more minutes Total Critical Time (Minutes): 45 Medications reviewed and adjusted accordingly: Yes - Inpatient Certification Based on my medical assessment, after consideration of the patient's comorbidities, presenting symptoms, or acuity I expect that the services needed warrant INPATIENT care.: Yes I certify that my determination is in accordance with my understanding of Medicare's requirements for reasonable and necessary INPATIENT services [42 CFR 412.3e].: Yes Medical Necessity: Need For IV Fluids, Need For Continuous Telemetry Monitoring , Risk of Complication if Not Cared For in Hospital
[2017-11-29] MEDS ORDERED: ONDANSETRON 4 MG TAB.RAPDIS PO PRN (18:22)
[2017-11-29] MEDS: HYDROCODONE BIT/HOMATROPINE 5-1.5 MG TABLET PO PRN (22:11)
[2017-11-30] MEDS: NORMAL SALINE 100 ML with PANTOPRAZOLE SODIUM 80 MG IV PRN ×2 (01:25)
[2017-11-30] MEDS: BENZONATATE 100 MG CAPSULE PO SCH ×3 (05:37→21:55)
[2017-11-30 05:57] LABS: HEMATOCRIT 25.7 % (36.0-47.0); HEMOGLOBIN 8.9 g/dL (12.0-15.5); MEAN CORPUSCULAR HEMOGLOBIN 29.6 pg (27.0-33.4); MEAN CORPUSCULAR HGB CONC 34.8 g/dL (32.0-36.0); MEAN CORPUSCULAR VOLUME 85 fl (80-97); RED BLOOD COUNT 3.03 10^6/uL (3.72-5.28); RED CELL DISTRIBUTION WIDTH 15.1 % (11.5-14.0); WHITE BLOOD COUNT 21.2 10^3/uL (4.0-10.5)
[2017-11-30 06:16] LABS: ANION GAP 5 (5-19); BLOOD UREA NITROGEN 6 mg/dL (7-20); CALCIUM 8.4 mg/dL (8.4-10.2); CARBON DIOXIDE 25 mmol/L (22-30); CHLORIDE 102 mmol/L (98-107); CHOLESTEROL 62.52 mg/dL (0-200); GLUCOSE 106 mg/dL (75-110); PLATELET COUNT 1448 10^3/uL (150-450); POTASSIUM 4.1 mmol/L (3.6-5.0); SODIUM 131.8 mmol/L (137-145); TRIGLYCERIDES 126 mg/dL (<150)
[2017-11-30 06:22] LABS: ABSOLUTE LYMPHOCYTES# (MANUAL) 4.2 10^3/uL (0.5-4.7); ABSOLUTE MONOCYTES # (MANUAL) 1.1 10^3/uL (0.1-1.4); ABSOLUTE NEUTROPHILS# (MANUAL) 15.5 10^3/uL (1.7-8.2); BAND NEUTROPHILS % (MANUAL) 5 % (3-5); BASOPHILS % (MANUAL) 0 % (0-2); EOSINOPHILS % (MANUAL) 2 % (0-6); LYMPHOCYTES % (MANUAL) 20 % (13-45); MONOCYTES % (MANUAL) 5 % (3-13); SEGMENTED NEUTROPHILS % (MAN) 68 % (42-78); TOTAL CELLS COUNTED 100
[2017-11-30 06:24] LABS: ANISOCYTOSIS SLIGHT; HYPOCHROMASIA SLIGHT; PLATELET COMMENT INCREASED; POIKILOCYTOSIS SLIGHT; POLYCHROMASIA SLIGHT; TEAR DROP CELLS SLIGHT; TOXIC GRANULATION 2+
[2017-11-30 06:27] LABS: DIRECT LDL 35 mg/dL (<100)
[2017-11-30] MEDS ORDERED: GLUCAGON,HUMAN RECOMB 1 MG INJ SUBCUT PRN (09:28)
[2017-11-30] MEDS ORDERED: DEXTROSE 40% GEL 15 GM TUBE PO PRN ×2 (09:28)
[2017-11-30] MEDS ORDERED: DEXTROSE 50%-WATER 25 GM/50 ML DISP.SYRIN IV PRN ×2 (09:28)
[2017-11-30] MEDS: FENOFIBRATE NANOCRYSTALLIZED 48 MG TABLET PO SCH (09:45)
[2017-11-30] MEDS ORDERED: NALOXONE HCL INJ/PF 0.4 MG/1 ML SDV ONE (15:01)
[2017-11-30] MEDS ORDERED: GLYCOPYRROLATE INJ 0.4 MG/2 ML VIAL ONE (15:01)
[2017-11-30] MEDS ORDERED: ONDANSETRON HCL INJ/PF 4 MG/2 ML SDV ONE (15:01)
[2017-11-30] MEDS ORDERED: FLUMAZENIL INJ 0.5 MG/5 ML VIAL ONE (15:02)
[2017-11-30] MEDS ORDERED: FENTANYL CITRATE INJ/PF 100 MCG/2 ML AMPUL ONE (15:02)
[2017-11-30] MEDS ORDERED: EPINEPHRINE INJ 1 MG/10 ML DISP.SYRIN ONE (15:03)
[2017-11-30] MEDS ORDERED: GLUCAGON,HUMAN RECOMB 1 MG INJ ONE (15:03)
[2017-11-30] MEDS: MIDAZOLAM 2 MG/2 ML INJ ONE ×2 (15:35→15:40)
--- NOTE | 2017-11-30 16:13 | OPERATIVE REPORT E ---
Operative Report NAME: JENNIFER ZAMORA : 1945 AGE: 72Y DATE OF SURGERY: 11/30/2017 ROOM: 531 PREOPERATIVE DIAGNOSIS: Anemia, blood loss related. POSTOPERATIVE DIAGNOSIS: Anemia, blood loss related; no evidence of gastrointestinal hemorrhage source from the esophagus, stomach, or duodenum. PROCEDURE: Esophagogastroduodenoscopy. SURGEON: VIKKI HERNANDEZ M.D. ANESTHESIA: Conscious sedation. COMPLICATIONS: None. ESTIMATED BLOOD LOSS: None. DRAINS: None. SUMMARY OF PROCEDURE: The patient was taken to the fifth floor endoscopy suite where monitoring devices were attached, and IV sedation initiated. Surgical plan and surgical timeout were conducted. Oral mouthpiece was inserted, and oropharynx anesthetized with topical lidocaine. A flexible adult endoscope was advanced through the oropharynx down the hypopharynx, down the esophagus, into the stomach and into the duodenum. This was an excellent study and well tolerated by the patient. The duodenum was normal for the first and second portions. The scope was brought back through the pylorus, which was essentially unremarkable. The stomach was normal. There was no evidence of polyp, bleeding, clot, or gastritis. The scope was retroflexed in the stomach looking at the GE junction carefully. Some subtle irregularity of the GE junction from an anatomic standpoint, but no evidence of stricture or significant hiatal hernia. The scope was brought back through the GE junction. No evidence of esophagitis. The rest of the esophagus was unremarkable. No evidence of varix clot, bleeding, tumor, or polyp. The scope was brought back through the patient's oropharynx. She tolerated the procedure well. Further investigation will be required. We will prepare for colonoscopy in 24 hours. Orders for bowel prep initiated. DICTATING PHYSICIAN: VIKKI HERNANDEZ M.D. [id number] PHY#: [id number] ID: [id number] JOB#: [id number] ACCT: [id number] cc:VIKKI HERNANDEZ M.D. >
[2017-11-30] MEDS ORDERED: PEG 3350/NA SULF,BICARB,CL/KCL 4000 ML PO ONE (17:30)
[2017-11-30] MEDS: HYDROCODONE BIT/HOMATROPINE 5-1.5 MG TABLET PO PRN (23:41)
[2017-12-01] MEDS: BENZONATATE 100 MG CAPSULE PO SCH ×3 (05:27→22:51)
--- NOTE | 2017-12-01 08:25 | PDOC PROGRESS REPORT ---
Subjective Progress Note for:: 12/01/17 Subjective:: EGD yesterday w/ no major issue noted, colonoscopy planned today but pt had to stop prep overnight b/c of severe abd pain and cramping while taking it Reason For Visit: HYPOKALEMIA,HYPONATREMIA,LEUKOCYTOSIS,THROMBYCYTOS Physical Exam Vital Signs: Temp Pulse Resp BP Pulse Ox 98.8 F 77 19 133/61 H 92 12/01/17 04:08 12/01/17 04:08 12/01/17 04:08 12/01/17 04:08 12/01/17 04:08 Intake & Output 11/30/17 12/01/17 12/02/17 06:59 06:59 06:59 Intake Total 1546 1000 Balance 1546 1000 Weight 70.2 kg 70.2 kg General appearance: PRESENT: no acute distress, well-developed, well-nourished Head exam: PRESENT: atraumatic, normocephalic Eye exam: PRESENT: conjunctiva pink, EOMI, PERRLA. ABSENT: scleral icterus Ear exam: PRESENT: normal external ear exam Mouth exam: PRESENT: moist, tongue midline Neck exam: ABSENT: carotid bruit, JVD, lymphadenopathy, thyromegaly Respiratory exam: PRESENT: clear to auscultation mane. ABSENT: rales, rhonchi, wheezes Cardiovascular exam: PRESENT: RRR. ABSENT: diastolic murmur, rubs, systolic murmur Pulses: PRESENT: normal dorsalis pedis pul Vascular exam: PRESENT: normal capillary refill GI/Abdominal exam: PRESENT: normal bowel sounds, soft. ABSENT: distended, guarding, mass, organolmegaly, rebound, tenderness Rectal exam: PRESENT: deferred Extremities exam: PRESENT: full ROM. ABSENT: calf tenderness, clubbing, pedal edema Neurological exam: PRESENT: alert, awake, oriented to person, oriented to place , oriented to time, oriented to situation, CN II-XII grossly intact. ABSENT: motor sensory deficit Psychiatric exam: PRESENT: appropriate affect, normal mood. ABSENT: homicidal ideation, suicidal ideation Skin exam: PRESENT: dry, intact, warm. ABSENT: cyanosis, rash Results Laboratory Results: 11/30/17 05:23 11/30/17 05:23 11/28/17 11/30/17 04:26 05:23 Magnesium 1.8 Transferrin 104 L Impressions: Chest X-Ray 11/26/17 11:37 IMPRESSION: NO ACUTE RADIOGRAPHIC FINDING IN THE CHEST. Abdomen/Pelvis CT 11/28/17 00:00 IMPRESSION: Diffuse pancreatitis with peripancreatic fat stranding and fluid along the left gutter. No pancreatic masses. Chest CT 11/28/17 00:00 IMPRESSION: Small left pleural effusion. Otherwise negative. Assessment & Plan - Diagnosis (1) Neutrophilic leukocytosis Is this a current diagnosis for this admission?: Yes Plan: Reactive, improved somewhat but also likely related to myeloproliferative process, labs pending for this (2) Thrombocytosis Is this a current diagnosis for this admission?: Yes Plan: Also reactive in part but labs pending for this (3) Symptomatic anemia Is this a current diagnosis for this admission?: Yes Plan: Hb still generally stable, no need for transfusion but pt likely had GI bleed causing this (4) GI bleed Qualifiers: GI bleed type/associated pathology: melena Qualified Code(s): K92.1 - Melena Is this a current diagnosis for this admission?: Yes Plan: Improved colonoscopy pending (5) Acute pancreatitis Qualifiers: Pancreatitis type: other Acute pancreatitis complication: no infection or necrosis Qualified Code(s): K85.80 - Other acute pancreatitis without necrosis or infection Is this a current diagnosis for this admission?: Yes Plan: Improved also, con't clears - Time Time Spent with patient: 35 or more minutes Total Critical Time (Minutes): 40 - Inpatient Certification Based on my medical assessment, after consideration of the patient's comorbidities, presenting symptoms, or acuity I expect that the services needed warrant INPATIENT care.: Yes I certify that my determination is in accordance with my understanding of Medicare's requirements for reasonable and necessary INPATIENT services [42 CFR 412.3e].: Yes Medical Necessity: Need For IV Fluids, Need for Surgery
[2017-12-01] MEDS: FENOFIBRATE NANOCRYSTALLIZED 48 MG TABLET PO SCH (11:15)
[2017-12-01] MEDS ORDERED: GLYCOPYRROLATE INJ 0.4 MG/2 ML VIAL ONE (11:41)
[2017-12-01] MEDS ORDERED: ONDANSETRON HCL INJ/PF 4 MG/2 ML SDV ONE (11:41)
[2017-12-01] MEDS ORDERED: NALOXONE HCL INJ/PF 0.4 MG/1 ML SDV ONE (11:41)
[2017-12-01] MEDS ORDERED: FLUMAZENIL INJ 0.5 MG/5 ML VIAL ONE (11:42)
[2017-12-01] MEDS ORDERED: EPINEPHRINE INJ 1 MG/10 ML DISP.SYRIN ONE (11:43)
[2017-12-01] MEDS ORDERED: GLUCAGON,HUMAN RECOMB 1 MG INJ ONE (11:43)
[2017-12-01] MEDS: MIDAZOLAM 2 MG/2 ML INJ ONE ×5 (12:14→12:54)
[2017-12-01] MEDS: FENTANYL CITRATE INJ/PF 100 MCG/2 ML AMPUL ONE ×6 (12:16→12:45)
--- NOTE | 2017-12-01 12:55 | PDOC H&P ---
History of Present Illness Admission Date/PCP: 11/26/17 12:42 Patient complains of: Coughing and vomiting after eating History of Present Illness: JENNIFER ZAMORA is a 72 year old female with history of HLD, hypertension and hypothyroidism presenting with complaint of not feeling well since before . Patient felt tired and thought it was due being stressed over the last several months. Patient states she started coughing and thought it was due to her allergies. Patient started noticing that she would vomit after coughing. She also had some tenderness across the abdomen. It did not radiate to her back. She did not have any diarrhea. Patient did her flu short. Patient had not had anything like this before. Patent went to see her PCP and had lab work done. She went home and was called to go the the ED. In the ED patient was found to have multiple electrolyte abnormalities. She was found to have leukocytosis and thrombocytosis. ED called to admit patient for possible infection. Past Medical History Cardiac Medical History: Reports: Hyperlipidema, Hypertension Endocrine History Note: hypothyroid Past Surgical History Past Surgical History: Reports: Other - colonoscopy 8 years ago Social History Lives with: Spouse/Significant other Smoking Status: Never Smoker Frequency of Alcohol Use: Rare Hx Recreational Drug Use: No Drugs: None Hx Prescription Drug Abuse: No - Advance Directive Resuscitation Status: Full Code Family History Family History: Hyperlipidemia, Malignancy Parental Family History Reviewed: No Children Family History Reviewed: No Sibling(s) Family History Reviewed.: No Medication/Allergy Home Medications: Fenofibric Acid [Fibricor] 105 mg PO DAILY 11/26/17 Levothyroxine Sodium [Synthroid] 0.125 mg PO DAILY 11/26/17 Losartan/Hydrochlorothiazide [Losartan-Hctz 100-25 mg Tab] 1 tab PO DAILY Allergies/Adverse Reactions: [id number] Reductase Inhibitor Allergy (Verified 11/26/17 11:07) Sulfa (Sulfonamide Antibiotics) Allergy (Verified 11/26/17 11:07) Review of Systems Constitutional: ABSENT: chills, fever(s), headache(s), weight gain, weight loss Eyes: ABSENT: visual disturbances Ears: ABSENT: hearing changes Cardiovascular: ABSENT: chest pain, dyspnea on exertion, edema, orthropnea, palpitations Respiratory: PRESENT: cough. ABSENT: hemoptysis Gastrointestinal: PRESENT: abdominal pain, vomiting. ABSENT: constipation, diarrhea, hematemesis, hematochezia, nausea Genitourinary: ABSENT: dysuria, hematuria Musculoskeletal: ABSENT: joint swelling Integumentary: ABSENT: rash, wounds Neurological: ABSENT: abnormal gait, abnormal speech, confusion, dizziness, focal weakness, syncope Psychiatric: ABSENT: anxiety, depression, homidical ideation, suicidal ideation Endocrine: ABSENT: cold intolerance, heat intolerance, polydipsia, polyuria Hematologic/Lymphatic: ABSENT: easy bleeding, easy bruising Physical Exam Vital Signs: Temp Pulse Resp BP Pulse Ox 97.5 F 76 18 130/36 H 95 11/26/17 19:45 11/26/17 19:45 11/26/17 19:45 11/26/17 19:45 11/26/17 19:45 Intake & Output 11/25/17 11/26/17 11/27/17 06:59 06:59 06:59 Weight 66.1 kg General appearance: PRESENT: no acute distress, well-developed, well-nourished Head exam: PRESENT: atraumatic, normocephalic Eye exam: PRESENT: conjunctiva pink, EOMI, PERRLA. ABSENT: scleral icterus Ear exam: PRESENT: normal external ear exam Mouth exam: PRESENT: moist, tongue midline Neck exam: ABSENT: carotid bruit, JVD, lymphadenopathy, thyromegaly Respiratory exam: PRESENT: clear to auscultation mane. ABSENT: rales, rhonchi, wheezes Cardiovascular exam: PRESENT: RRR. ABSENT: diastolic murmur, rubs, systolic murmur Pulses: PRESENT: normal dorsalis pedis pul Vascular exam: PRESENT: normal capillary refill GI/Abdominal exam: PRESENT: normal bowel sounds, soft. ABSENT: distended, guarding, mass, organolmegaly, rebound, tenderness Rectal exam: PRESENT: deferred Extremities exam: PRESENT: full ROM. ABSENT: calf tenderness, clubbing, pedal edema Neurological exam: PRESENT: alert, awake, oriented to person, oriented to place , oriented to time, oriented to situation, CN II-XII grossly intact. ABSENT: motor sensory deficit Psychiatric exam: PRESENT: appropriate affect, normal mood. ABSENT: homicidal ideation, suicidal ideation Skin exam: PRESENT: dry, intact, warm. ABSENT: cyanosis, rash Results Laboratory Results: 11/26/17 11/26/17 11:20 11:20 WBC 32.0 H* RBC 3.72 Hgb 10.7 L Hct 32.4 L MCV 87 MCH 28.7 MCHC 32.9 RDW 15.4 H Plt Count 2851 H* Sodium 131.4 L Potassium 2.6 L* Chloride 90 L Carbon Dioxide 25 Anion Gap 16 BUN 40 H Creatinine 1.00 Est GFR ( Amer) > 60 Est GFR (Non-Af Amer) 55 L Glucose 89 Calcium 9.5 Impressions: Chest X-Ray 11/26/17 11:37 IMPRESSION: NO ACUTE RADIOGRAPHIC FINDING IN THE CHEST. Assessment & Plan - Diagnosis (1) Hyponatremia Is this a current diagnosis for this admission?: Yes Plan: Secondary to dehydration from vomiting. Continue NS and monitor. (2) Cough Plan: Possible secondary to viral syndrome. Chest X ray negative. (3) HLD (hyperlipidemia) Is this a current diagnosis for this admission?: Yes Plan: Continue Tricor. (4) Hypokalemia Is this a current diagnosis for this admission?: Yes Plan: From vomiting and not eating. Replace and monitor. (5) Neutrophilic leukocytosis Is this a current diagnosis for this admission?: Yes Plan: May be reactive in nature. Will not start antibiotics because patient is febrile without clear source of infection. Will look for etiology and monitor labs. (6) Thrombocytosis Is this a current diagnosis for this admission?: Yes Plan: Could be reactive. Will continue to monitor and start on aspirin. Hematology consulted. - Time Time Spent: 30 to 50 Minutes Anticipated discharge: Home - Inpatient Certification Medical Necessity: Significant Comorbidiites Make Outpatient Treatment Too Risky , Need Close Monitoring Due to Risk of Patient Decompensation, Need For IV Fluids
--- NOTE | 2017-12-01 13:07 | PDOC PROGRESS REPORT ---
Subjective Progress Note for:: 11/27/17 Subjective:: Patient able to tolerate po now. Patient requesting something for cough. Reason For Visit: HYPOKALEMIA,HYPONATREMIA,LEUKOCYTOSIS,THROMBYCYTOS Physical Exam Vital Signs: Temp Pulse Resp BP Pulse Ox 98.1 F 67 17 119/44 L 98 11/27/17 19:46 11/27/17 19:46 11/27/17 19:46 11/27/17 19:46 11/27/17 19:46 Intake & Output 11/26/17 11/27/17 11/28/17 06:59 06:59 06:59 Intake Total 940 2730 Balance 940 2730 Weight 66.1 kg 66.1 kg General appearance: PRESENT: no acute distress, well-developed, well-nourished Head exam: PRESENT: atraumatic, normocephalic Eye exam: PRESENT: conjunctiva pink, EOMI, PERRLA. ABSENT: scleral icterus Ear exam: PRESENT: normal external ear exam Mouth exam: PRESENT: moist, tongue midline Neck exam: ABSENT: carotid bruit, JVD, lymphadenopathy, thyromegaly Respiratory exam: PRESENT: clear to auscultation mane. ABSENT: rales, rhonchi, wheezes Cardiovascular exam: PRESENT: RRR. ABSENT: diastolic murmur, rubs, systolic murmur Pulses: PRESENT: normal dorsalis pedis pul Vascular exam: PRESENT: normal capillary refill GI/Abdominal exam: PRESENT: normal bowel sounds, soft. ABSENT: distended, guarding, mass, organolmegaly, rebound, tenderness Rectal exam: PRESENT: deferred Extremities exam: PRESENT: full ROM. ABSENT: calf tenderness, clubbing, pedal edema Neurological exam: PRESENT: alert, awake, oriented to person, oriented to place , oriented to time, oriented to situation, CN II-XII grossly intact. ABSENT: motor sensory deficit Psychiatric exam: PRESENT: appropriate affect, normal mood. ABSENT: homicidal ideation, suicidal ideation Skin exam: PRESENT: dry, intact, warm. ABSENT: cyanosis, rash Results Laboratory Results: 11/27/17 06:04 11/27/17 06:04 11/27/17 11/27/17 11/27/17 06:04 06:04 06:04 WBC 26.0 H RBC 3.03 L Hgb 8.8 L Hct 26.4 L MCV 87 MCH 28.9 MCHC 33.1 RDW 15.0 H Plt Count 2113 H* Sodium 133.5 L Potassium 4.7 D Chloride 100 Carbon Dioxide 24 Anion Gap 10 BUN 25 H Creatinine 0.71 Est GFR ( Amer) > 60 Est GFR (Non-Af Amer) > 60 Glucose 133 H Calcium 9.0 Magnesium 2.2 TSH 0.14 L Free T4 2.73 H Free T3 pg/mL 1.51 L Impressions: Chest X-Ray 11/26/17 11:37 IMPRESSION: NO ACUTE RADIOGRAPHIC FINDING IN THE CHEST. Assessment & Plan - Diagnosis (1) Anemia Qualifiers: Anemia type: unspecified type Qualified Code(s): D64.9 - Anemia, unspecified Is this a current diagnosis for this admission?: Yes Plan: Patient hemoglobin trending down with fluids. Patient denies any history of anemia. Will order iron studies and transfuse if hemoglobin continues to trend down. (2) Cough Plan: Possible secondary to viral syndrome. Chest X ray negative. Will start hycoden PRN. (3) HLD (hyperlipidemia) Is this a current diagnosis for this admission?: Yes Plan: Continue Tricor. (4) Hypokalemia Is this a current diagnosis for this admission?: Yes Plan: Secondary to vomiting and the use of HCTZ for hypertension. Now resolved. Replace and monitor. (5) Hyponatremia Is this a current diagnosis for this admission?: Yes Plan: Secondary to dehydration vomiting and the use of HCTZ. Continue NS and monitor. (6) Neutrophilic leukocytosis Is this a current diagnosis for this admission?: Yes Plan: May be reactive in nature. Will not start antibiotics because patient is febrile without clear source of infection. Will look for etiology and monitor labs. (7) Thrombocytosis Is this a current diagnosis for this admission?: Yes Plan: Could be reactive. Will continue to monitor and start on aspirin. Hematology consulted. (8) Hypothyroid Qualifiers: Hypothyroidism type: acquired Qualified Code(s): E03.9 - Hypothyroidism, unspecified Is this a current diagnosis for this admission?: Yes Plan: Patient was hyperthyroid but was given radioactive iodine. Hold thyroid medication for T4 elevation and TSH depression. Restart thyroid mediation after a few day. - Time Time Spent with patient: 15-24 minutes Anticipated discharge: Home - Inpatient Certification Medical Necessity: Need For IV Fluids
--- NOTE | 2017-12-01 13:46 | PDOC PROGRESS REPORT ---
Subjective Progress Note for:: 11/28/17 Subjective:: Patient able to tolerate po now. Patient reports having dark stools and that she has been having dark stools. Patient denies ever being anemic in the pass. He has had polyps removed about 8 years ago but never had a follow up colonoscopy. Reason For Visit: HYPOKALEMIA,HYPONATREMIA,LEUKOCYTOSIS,THROMBYCYTOS Physical Exam Vital Signs: Selected Entries 11/28/17 17:17 Temperature 97.7 F Pulse Rate 69 Respiratory 20 Rate Blood Pressure 145/49 H Blood Pressure 81 Mean BP Location Left Arm BP Position Supine O2 Sat by Pulse 100 Oximetry Oxygen Delivery Room Air Method General appearance: PRESENT: no acute distress, well-developed, well-nourished Head exam: PRESENT: atraumatic, normocephalic Eye exam: PRESENT: conjunctiva pink, EOMI, PERRLA. ABSENT: scleral icterus Ear exam: PRESENT: normal external ear exam Mouth exam: PRESENT: moist, tongue midline Neck exam: ABSENT: carotid bruit, JVD, lymphadenopathy, thyromegaly Respiratory exam: PRESENT: clear to auscultation mane. ABSENT: rales, rhonchi, wheezes Cardiovascular exam: PRESENT: RRR. ABSENT: diastolic murmur, rubs, systolic murmur Pulses: PRESENT: normal dorsalis pedis pul Vascular exam: PRESENT: normal capillary refill GI/Abdominal exam: PRESENT: normal bowel sounds, soft. ABSENT: distended, guarding, mass, organolmegaly, rebound, tenderness Rectal exam: PRESENT: deferred Extremities exam: PRESENT: full ROM. ABSENT: calf tenderness, clubbing, pedal edema Neurological exam: PRESENT: alert, awake, oriented to person, oriented to place , oriented to time, oriented to situation, CN II-XII grossly intact. ABSENT: motor sensory deficit Psychiatric exam: PRESENT: appropriate affect, normal mood. ABSENT: homicidal ideation, suicidal ideation Skin exam: PRESENT: dry, intact, warm. ABSENT: cyanosis, rash Results Laboratory Results: Selected Entries 11/28/17 17:17 Temperature 97.7 F Pulse Rate 69 Respiratory 20 Rate Blood Pressure 145/49 H Blood Pressure 81 Mean BP Location Left Arm BP Position Supine O2 Sat by Pulse 100 Oximetry Oxygen Delivery Room Air Method 11/26/17 11/28/17 11/28/17 11:20 04:26 04:26 WBC RBC Hgb Hct 32.4 L MCV 87 MCH 28.7 MCHC 32.9 RDW Plt Count 2851 H* Sodium 137.3 Potassium 4.3 Chloride 109 H Carbon Dioxide 22 Anion Gap 6 BUN 15 Creatinine 0.66 Est GFR ( Amer) > 60 Est GFR (Non-Af Amer) > 60 Glucose 103 Calcium 8.8 Magnesium 1.8 Iron 64.9 TIBC 175 L % Saturation 37 Ferritin 456.00 H Vitamin B12 977.0 H Folate 5.18 11/28/17 19:25 WBC 23.2 H RBC 3.20 L Hgb 9.4 L Hct 27.7 L MCV 87 MCH 29.5 MCHC 34.0 RDW 15.1 H Plt Count 1799 H* Sodium Potassium Chloride Carbon Dioxide Anion Gap BUN Creatinine Est GFR ( Amer) Est GFR (Non-Af Amer) Glucose Calcium Magnesium Iron TIBC % Saturation Ferritin Vitamin B12 Folate Impressions: Chest X-Ray 11/26/17 11:37 IMPRESSION: NO ACUTE RADIOGRAPHIC FINDING IN THE CHEST. Abdomen/Pelvis CT 11/28/17 00:00 IMPRESSION: Diffuse pancreatitis with peripancreatic fat stranding and fluid along the left gutter. No pancreatic masses. Chest CT 11/28/17 00:00 IMPRESSION: Small left pleural effusion. Otherwise negative. Assessment & Plan - Diagnosis (1) Anemia Qualifiers: Anemia type: unspecified type Qualified Code(s): D64.9 - Anemia, unspecified Is this a current diagnosis for this admission?: Yes Plan: Patient hemoglobin trending down with fluids. Patient denies any history of anemia. Patient being transfused 1 unit today as patient states she feels weak. (2) Cough Plan: Possible secondary to viral syndrome. Chest X ray negative. CT chest with contrast being ordered. Continue hycoden PRN. Patient states it helps her cough. (3) HLD (hyperlipidemia) Is this a current diagnosis for this admission?: Yes Plan: Continue Tricor. Will check lipid panel. (4) Hypokalemia Is this a current diagnosis for this admission?: Yes Plan: Secondary to vomiting and the use of HCTZ for hypertension. Now resolved. Replace and monitor. (5) Hyponatremia Is this a current diagnosis for this admission?: Yes Plan: Improving. Secondary to dehydration vomiting and the use of HCTZ. Continue NS and monitor. (6) Neutrophilic leukocytosis Is this a current diagnosis for this admission?: Yes Plan: May be reactive in nature. Will not start antibiotics because patient is febrile without clear source of infection. Will look for etiology and monitor labs. Slightly lower today. (7) Thrombocytosis Is this a current diagnosis for this admission?: Yes Plan: Could be reactive. Gradually trending down. Will discontinue aspirin for GI bleed. Hematology consulted. Patient being worked up for hematologic condition. Hematology recommend CT abdomen/pelvis and chest with contrast. (8) Hypothyroid Qualifiers: Hypothyroidism type: acquired Qualified Code(s): E03.9 - Hypothyroidism, unspecified Is this a current diagnosis for this admission?: Yes Plan: Patient was hyperthyroid but was given radioactive iodine. Hold thyroid medication for T4 elevation and TSH depression. Restart thyroid mediation after a few days. (9) GI bleed Qualifiers: GI bleed type/associated pathology: melena Qualified Code(s): K92.1 - Melena Is this a current diagnosis for this admission?: Yes Plan: Patient report dark stools. FOBT positive. Hemoglobin trending down. Protonix gtt ordered. Plan for EGD and colonscopy hopefully during this admission. - Time Time Spent with patient: 15-24 minutes Anticipated discharge: Home - Inpatient Certification Medical Necessity: Need Close Monitoring Due to Risk of Patient Decompensation
--- NOTE | 2017-12-01 14:03 | PDOC PROGRESS REPORT ---
Subjective Progress Note for:: 11/29/16 Subjective:: Patient having diarrhea following drinking contrast for CT scan. Patient states that the stool is dark still. Reason For Visit: HYPOKALEMIA,HYPONATREMIA,LEUKOCYTOSIS,THROMBYCYTOS Physical Exam Vital Signs: Selected Entries 11/29/17 03:37 Temperature 98.6 F Temperature Oral Source Pulse Rate 76 Respiratory 21 H Rate Blood Pressure 138/46 H Blood Pressure 76 Mean BP Location Left Arm BP Position Supine O2 Sat by Pulse 95 Oximetry Oxygen Delivery Room Air Method General appearance: PRESENT: no acute distress, well-developed, well-nourished Head exam: PRESENT: atraumatic, normocephalic Eye exam: PRESENT: conjunctiva pink, EOMI, PERRLA. ABSENT: scleral icterus Ear exam: PRESENT: normal external ear exam Mouth exam: PRESENT: moist, tongue midline Neck exam: ABSENT: carotid bruit, JVD, lymphadenopathy, thyromegaly Respiratory exam: PRESENT: clear to auscultation mane. ABSENT: rales, rhonchi, wheezes Cardiovascular exam: PRESENT: RRR. ABSENT: diastolic murmur, rubs, systolic murmur Pulses: PRESENT: normal dorsalis pedis pul Vascular exam: PRESENT: normal capillary refill GI/Abdominal exam: PRESENT: normal bowel sounds, soft. ABSENT: distended, guarding, mass, organolmegaly, rebound, tenderness Rectal exam: PRESENT: deferred Extremities exam: PRESENT: full ROM. ABSENT: calf tenderness, clubbing, pedal edema Neurological exam: PRESENT: alert, awake, oriented to person, oriented to place , oriented to time, oriented to situation, CN II-XII grossly intact. ABSENT: motor sensory deficit Psychiatric exam: PRESENT: appropriate affect, normal mood. ABSENT: homicidal ideation, suicidal ideation Skin exam: PRESENT: dry, intact, warm. ABSENT: cyanosis, rash Results Laboratory Results: 11/30/17 05:23 11/30/17 05:23 11/28/17 04:26 Transferrin 104 L Impressions: Chest X-Ray 11/26/17 11:37 IMPRESSION: NO ACUTE RADIOGRAPHIC FINDING IN THE CHEST. Abdomen/Pelvis CT 11/28/17 00:00 IMPRESSION: Diffuse pancreatitis with peripancreatic fat stranding and fluid along the left gutter. No pancreatic masses. Chest CT 11/28/17 00:00 IMPRESSION: Small left pleural effusion. Otherwise negative. Assessment & Plan - Diagnosis (1) Anemia Qualifiers: Anemia type: unspecified type Qualified Code(s): D64.9 - Anemia, unspecified Is this a current diagnosis for this admission?: Yes Plan: Patient hemoglobin trending down with fluids. Patient with complaint of dark stools so possible GI loss. Patient denies any history of anemia. Patient being transfused 1 unit of blood this admission as patient states she feels weak. Patient iron studies are normal. (2) Cough Plan: Possible secondary to viral syndrome. Chest X ray negative. No finding on CT chest. Continue hycoden PRN. Patient states it helps her cough. (3) HLD (hyperlipidemia) Is this a current diagnosis for this admission?: Yes Plan: Continue Tricor. Normal lipid panel. (4) Hypokalemia Is this a current diagnosis for this admission?: Yes Plan: Secondary to vomiting and the use of HCTZ for hypertension. Now resolved. (5) Hyponatremia Is this a current diagnosis for this admission?: Yes Plan: Improving. Secondary to dehydration vomiting and the use of HCTZ. Continue NS and monitor. (6) Neutrophilic leukocytosis Is this a current diagnosis for this admission?: Yes Plan: May be reactive in nature. Will not start antibiotics because patient is febrile without clear source of infection. Will look for etiology and monitor labs. Slightly lower today. CT chest negative. Abdomen short diffuse pancreatitis and an ovarian cycst. But no clear source of infection however the pancreas can be a source of the inflammation and increased WBC. (7) Thrombocytosis Is this a current diagnosis for this admission?: Yes (8) Hypothyroid Qualifiers: Hypothyroidism type: acquired Qualified Code(s): E03.9 - Hypothyroidism, unspecified Is this a current diagnosis for this admission?: Yes Plan: Patient was hyperthyroid but was given radioactive iodine. Hold thyroid medication for T4 elevation and TSH depression. Restart thyroid mediation after a few days. May want to restart at a lower dose. (9) GI bleed Qualifiers: GI bleed type/associated pathology: melena Qualified Code(s): K92.1 - Melena Is this a current diagnosis for this admission?: Yes Plan: Patient report dark stools. FOBT positive. Hemoglobin trending down. Protonix gtt ordered. Plan for EGD and colonscopy hopefully during this admission. (10) Acute pancreatitis Qualifiers: Pancreatitis type: other Acute pancreatitis complication: no infection or necrosis Qualified Code(s): K85.80 - Other acute pancreatitis without necrosis or infection Is this a current diagnosis for this admission?: Yes Plan: Patient with pancreatitis on CT with leukocytosis. Lipid panel negative. Could this be related to medication or viral in nature. Patent tolerating po and no longer vomiting. - Time Time Spent with patient: Less than 15 minutes Anticipated discharge: Home - Inpatient Certification Medical Necessity: Risk of Complication if Not Cared For in Hospital
--- NOTE | 2017-12-01 14:11 | PDOC PROGRESS REPORT ---
Subjective Progress Note for:: 11/30/17 Subjective:: Patient now complaining of left upper and lower stomach pain. She states her stools are darkish. Plan for EGD today. Reason For Visit: HYPOKALEMIA,HYPONATREMIA,LEUKOCYTOSIS,THROMBYCYTOS Physical Exam Vital Signs: Selected Entries 11/30/17 04:25 Temperature 99.0 F Temperature Oral Source Pulse Rate 78 Respiratory 16 Rate Blood Pressure 146/54 H Blood Pressure 84 Mean BP Location Left Arm BP Position Supine O2 Sat by Pulse 94 Oximetry Oxygen Delivery Room Air Method General appearance: PRESENT: no acute distress, well-developed, well-nourished Head exam: PRESENT: atraumatic, normocephalic Eye exam: PRESENT: conjunctiva pink, EOMI, PERRLA. ABSENT: scleral icterus Ear exam: PRESENT: normal external ear exam Mouth exam: PRESENT: moist, tongue midline Neck exam: ABSENT: carotid bruit, JVD, lymphadenopathy, thyromegaly Respiratory exam: PRESENT: clear to auscultation mane. ABSENT: rales, rhonchi, wheezes Cardiovascular exam: PRESENT: RRR. ABSENT: diastolic murmur, rubs, systolic murmur Pulses: PRESENT: normal dorsalis pedis pul Vascular exam: PRESENT: normal capillary refill GI/Abdominal exam: PRESENT: normal bowel sounds, soft, tenderness - left upper and lower with deep palpation. ABSENT: distended, guarding, mass, organolmegaly , rebound Rectal exam: PRESENT: deferred Extremities exam: PRESENT: full ROM. ABSENT: calf tenderness, clubbing, pedal edema Neurological exam: PRESENT: alert, awake, oriented to person, oriented to place , oriented to time, oriented to situation, CN II-XII grossly intact. ABSENT: motor sensory deficit Psychiatric exam: PRESENT: appropriate affect, normal mood. ABSENT: homicidal ideation, suicidal ideation Skin exam: PRESENT: dry, intact, warm. ABSENT: cyanosis, rash Results Laboratory Results: 11/30/17 05:23 11/30/17 05:23 Impressions: Chest X-Ray 11/26/17 11:37 IMPRESSION: NO ACUTE RADIOGRAPHIC FINDING IN THE CHEST. Abdomen/Pelvis CT 11/28/17 00:00 IMPRESSION: Diffuse pancreatitis with peripancreatic fat stranding and fluid along the left gutter. No pancreatic masses. Chest CT 11/28/17 00:00 IMPRESSION: Small left pleural effusion. Otherwise negative. Assessment & Plan - Diagnosis (1) Anemia Qualifiers: Anemia type: unspecified type Qualified Code(s): D64.9 - Anemia, unspecified Is this a current diagnosis for this admission?: Yes Plan: Patient hemoglobin trending down with fluids. Patient with complaint of dark stools so possible GI loss. Patient denies any history of anemia. Patient being transfused 1 unit of blood this admission as patient states she feels weak. Patient iron studies are normal. EGD done and was negative. Plan for colonscopy in the am. (2) Cough Plan: Better. Possible secondary to post viral syndrome. Chest X ray negative. No finding on CT chest. Continue hycoden PRN. Patient states it helps her cough. (3) HLD (hyperlipidemia) Is this a current diagnosis for this admission?: Yes Plan: Continue Tricor. Normal lipid panel. (4) Hypokalemia Is this a current diagnosis for this admission?: Yes Plan: Secondary to vomiting and the use of HCTZ for hypertension. Now resolved. (5) Hyponatremia Is this a current diagnosis for this admission?: Yes Plan: Improving. Secondary to dehydration vomiting and the use of HCTZ. Continue NS and monitor. (6) Neutrophilic leukocytosis Is this a current diagnosis for this admission?: Yes Plan: May be reactive in nature. Will not start antibiotics because patient is febrile without clear source of infection. Will look for etiology and monitor labs. Slightly lower today. CT chest negative. Abdomen short diffuse pancreatitis and an ovarian cycst. But no clear source of infection however the pancreas can be a source of the inflammation and increased WBC. (7) Thrombocytosis Is this a current diagnosis for this admission?: Yes Plan: Could be reactive. Gradually trending down. Will discontinue aspirin for GI bleed. Hematology consulted. Patient being worked up for hematologic condition. CT abdomen and plevis and chest negative. (8) Hypothyroid Qualifiers: Hypothyroidism type: acquired Qualified Code(s): E03.9 - Hypothyroidism, unspecified Is this a current diagnosis for this admission?: Yes Plan: Patient was hyperthyroid but was given radioactive iodine. Hold thyroid medication for T4 elevation and TSH depression. Restart thyroid mediation after a few days. May want to restart at a lower dose. (9) GI bleed Qualifiers: GI bleed type/associated pathology: melena Qualified Code(s): K92.1 - Melena Is this a current diagnosis for this admission?: Yes Plan: Patient report dark stools. FOBT positive. Transfused 1unit. Hemoglobin responded. Will discontinue protonix gtt for negative EGD. Patient being prepped for colonoscopy. Continue to monitor. (10) Acute pancreatitis Qualifiers: Pancreatitis type: other Acute pancreatitis complication: no infection or necrosis Qualified Code(s): K85.80 - Other acute pancreatitis without necrosis or infection Is this a current diagnosis for this admission?: Yes Plan: Patient with pancreatitis on CT with leukocytosis. Lipid panel negative. Could this be related to medication or viral in nature. Patent tolerating po and no longer vomiting. - Time Time Spent with patient: Less than 15 minutes Anticipated discharge: Home
[2017-12-01] MEDS ORDERED: ONDANSETRON 4 MG TAB.RAPDIS PO PRN (15:30)
[2017-12-01 15:51] LABS: HEMATOCRIT 25.9 % (36.0-47.0); HEMOGLOBIN 8.8 g/dL (12.0-15.5); MEAN CORPUSCULAR HGB CONC 34.2 g/dL (32.0-36.0); MEAN CORPUSCULAR VOLUME 85 fl (80-97); RED BLOOD COUNT 3.05 10^6/uL (3.72-5.28); RED CELL DISTRIBUTION WIDTH 15.1 % (11.5-14.0); WHITE BLOOD COUNT 21.8 10^3/uL (4.0-10.5)
[2017-12-01 16:09] LABS: ANION GAP 10 (5-19); BLOOD UREA NITROGEN 8 mg/dL (7-20); CARBON DIOXIDE 26 mmol/L (22-30); CHLORIDE 101 mmol/L (98-107); GLUCOSE 84 mg/dL (75-110); MAGNESIUM 1.6 mg/dL (1.6-2.3); POTASSIUM 3.8 mmol/L (3.6-5.0); SODIUM 136.8 mmol/L (137-145)
[2017-12-01 16:13] LABS: ABSOLUTE LYMPHOCYTES# (MANUAL) 3.1 10^3/uL (0.5-4.7); ABSOLUTE MONOCYTES # (MANUAL) 1.3 10^3/uL (0.1-1.4); BAND NEUTROPHILS % (MANUAL) 2 % (3-5); BASOPHILS % (MANUAL) 0 % (0-2); EOSINOPHILS % (MANUAL) 2 % (0-6); LYMPHOCYTES % (MANUAL) 14 % (13-45); MONOCYTES % (MANUAL) 6 % (3-13); SEGMENTED NEUTROPHILS % (MAN) 76 % (42-78); TOTAL CELLS COUNTED 100
[2017-12-01 16:15] LABS: ANISOCYTOSIS SLIGHT; PLATELET COMMENT INCREASED; PLATELET LARGE PRESENT
[2017-12-01 16:16] LABS: POIKILOCYTOSIS SLIGHT; TARGET CELLS SLIGHT
[2017-12-01 16:17] LABS: POLYCHROMASIA SLIGHT
[2017-12-01 16:21] LABS: PLATELET COUNT 1660 10^3/uL (150-450)
--- NOTE | 2017-12-01 17:33 | PDOC PROGRESS REPORT ---
Subjective Progress Note for:: 12/01/17 Reason For Visit: HYPOKALEMIA,HYPONATREMIA,LEUKOCYTOSIS,THROMBYCYTOS Complaints at present. Colonoscopy was unsuccessful as the scope could not go beyond 45 cm. Air contrast barium enema has been ordered. Next Physical Exam Vital Signs: Temp Pulse Resp BP Pulse Ox 98.0 F 67 16 129/49 H 100 12/01/17 15:56 12/01/17 15:56 12/01/17 15:56 12/01/17 15:56 12/01/17 15:56 Intake & Output 11/30/17 12/01/17 12/02/17 06:59 06:59 06:59 Intake Total 1546 1000 625 Balance 1546 1000 625 Weight 70.2 kg 70.2 kg Additional comments: Elderly female who looks younger than her actual age lying comfortably in bed not in acute distress Lungs: Clear to auscultation bilaterally normal respiratory effort Cardiac: S1-S2 regular no murmurs heard no peripheral edema no cyanosis no calf tenderness Skin: Warm and dry Abdomen: Soft, no focal tenderness normal bowel sounds Results Laboratory Results: 12/01/17 14:56 12/01/17 14:56 12/01/17 12/01/17 12/01/17 14:56 14:56 14:56 WBC 21.8 H RBC 3.05 L Hgb 8.8 L Hct 25.9 L MCV 85 MCH 29.0 MCHC 34.2 RDW 15.1 H Plt Count 1660 H* Seg Neutrophils % Not Reportable Lymphocytes % Not Reportable Monocytes % Not Reportable Eosinophils % Not Reportable Basophils % Not Reportable Absolute Neutrophils Not Reportable Absolute Lymphocytes Not Reportable Absolute Monocytes Not Reportable Absolute Eosinophils Not Reportable Absolute Basophils Not Reportable Sodium 136.8 L Potassium 3.8 Chloride 101 Carbon Dioxide 26 Anion Gap 10 BUN 8 Creatinine 0.58 Est GFR ( Amer) > 60 Est GFR (Non-Af Amer) > 60 Glucose 84 Calcium 9.0 Magnesium 1.6 Lipase 278.3 Impressions: Chest X-Ray 11/26/17 11:37 IMPRESSION: NO ACUTE RADIOGRAPHIC FINDING IN THE CHEST. Abdomen/Pelvis CT 11/28/17 00:00 IMPRESSION: Diffuse pancreatitis with peripancreatic fat stranding and fluid along the left gutter. No pancreatic masses. Chest CT 11/28/17 00:00 IMPRESSION: Small left pleural effusion. Otherwise negative. Assessment & Plan - Diagnosis (1) Acute pancreatitis Qualifiers: Pancreatitis type: other Acute pancreatitis complication: no infection or necrosis Qualified Code(s): K85.80 - Other acute pancreatitis without necrosis or infection Is this a current diagnosis for this admission?: Yes (2) Anemia Qualifiers: Anemia type: unspecified type Qualified Code(s): D64.9 - Anemia, unspecified Is this a current diagnosis for this admission?: Yes (4) GI bleed Qualifiers: GI bleed type/associated pathology: melena Qualified Code(s): K92.1 - Melena Is this a current diagnosis for this admission?: Yes (5) HLD (hyperlipidemia) Is this a current diagnosis for this admission?: Yes (6) Hypokalemia Is this a current diagnosis for this admission?: Yes (7) Hyponatremia Is this a current diagnosis for this admission?: Yes (8) Hypothyroid Qualifiers: Hypothyroidism type: acquired Qualified Code(s): E03.9 - Hypothyroidism, unspecified Is this a current diagnosis for this admission?: Yes (9) Neutrophilic leukocytosis Is this a current diagnosis for this admission?: Yes (10) Symptomatic anemia Is this a current diagnosis for this admission?: Yes (11) Thrombocytosis Is this a current diagnosis for this admission?: Yes - Time Time Spent with patient: 25-34 minutes - Plan Summary Plan Summary: Continue workup for thrombocytosis anemia and leukocytosis.
[2017-12-01] MEDS: MAGNESIUM SULFATE/D5W 1 GM/100 ML RTUPB IV SCH ×2 (18:57→19:02)
[2017-12-01] MEDS: NORMAL SALINE 1000 ML 1,000 ML IV PRN (22:52)
[2017-12-01] MEDS: HYDROCODONE BIT/HOMATROPINE 5-1.5 MG TABLET PO PRN (23:54)
[2017-12-02] MEDS: BENZONATATE 100 MG CAPSULE PO SCH ×3 (05:24→22:23)
[2017-12-02] MEDS: LEVOTHYROXINE SODIUM 0.088 MG TABLET PO SCH (05:24)
--- NOTE | 2017-12-02 07:57 | PDOC PROGRESS REPORT ---
Subjective Progress Note for:: 12/02/17 Subjective:: Pt had colonoscopy but could not pass 45cm, that is likely the area of severe diverticulitis, will discuss w/ Dr. Coyle this am. Still had reddish BM after scope yesterday Reason For Visit: HYPOKALEMIA,HYPONATREMIA,LEUKOCYTOSIS,THROMBYCYTOS Physical Exam Vital Signs: Temp Pulse Resp BP Pulse Ox 98.6 F 84 18 135/52 H 95 12/02/17 04:01 12/02/17 04:01 12/02/17 04:01 12/02/17 04:01 12/02/17 04:01 Intake & Output 12/01/17 12/02/17 12/03/17 06:59 06:59 06:59 Intake Total 1000 1525 Balance 1000 1525 Weight 70.2 kg 70.2 kg General appearance: PRESENT: no acute distress, well-developed, well-nourished Head exam: PRESENT: atraumatic, normocephalic Eye exam: PRESENT: conjunctiva pink, EOMI, PERRLA. ABSENT: scleral icterus Ear exam: PRESENT: normal external ear exam Mouth exam: PRESENT: moist, tongue midline Neck exam: ABSENT: carotid bruit, JVD, lymphadenopathy, thyromegaly Respiratory exam: PRESENT: clear to auscultation mane. ABSENT: rales, rhonchi, wheezes Cardiovascular exam: PRESENT: RRR. ABSENT: diastolic murmur, rubs, systolic murmur Pulses: PRESENT: normal dorsalis pedis pul Vascular exam: PRESENT: normal capillary refill GI/Abdominal exam: PRESENT: normal bowel sounds, soft. ABSENT: distended, guarding, mass, organolmegaly, rebound, tenderness Rectal exam: PRESENT: deferred Extremities exam: PRESENT: full ROM. ABSENT: calf tenderness, clubbing, pedal edema Neurological exam: PRESENT: alert, awake, oriented to person, oriented to place , oriented to time, oriented to situation, CN II-XII grossly intact. ABSENT: motor sensory deficit Psychiatric exam: PRESENT: appropriate affect, normal mood. ABSENT: homicidal ideation, suicidal ideation Skin exam: PRESENT: dry, intact, warm. ABSENT: cyanosis, rash Results Laboratory Results: 12/01/17 14:56 12/01/17 14:56 12/01/17 12/01/17 12/01/17 14:56 14:56 14:56 WBC 21.8 H RBC 3.05 L Hgb 8.8 L Hct 25.9 L MCV 85 MCH 29.0 MCHC 34.2 RDW 15.1 H Plt Count 1660 H* Seg Neutrophils % Not Reportable Lymphocytes % Not Reportable Monocytes % Not Reportable Eosinophils % Not Reportable Basophils % Not Reportable Absolute Neutrophils Not Reportable Absolute Lymphocytes Not Reportable Absolute Monocytes Not Reportable Absolute Eosinophils Not Reportable Absolute Basophils Not Reportable Sodium 136.8 L Potassium 3.8 Chloride 101 Carbon Dioxide 26 Anion Gap 10 BUN 8 Creatinine 0.58 Est GFR ( Amer) > 60 Est GFR (Non-Af Amer) > 60 Glucose 84 Calcium 9.0 Magnesium 1.6 Lipase 278.3 Impressions: Chest X-Ray 11/26/17 11:37 IMPRESSION: NO ACUTE RADIOGRAPHIC FINDING IN THE CHEST. Abdomen/Pelvis CT 11/28/17 00:00 IMPRESSION: Diffuse pancreatitis with peripancreatic fat stranding and fluid along the left gutter. No pancreatic masses. Chest CT 11/28/17 00:00 IMPRESSION: Small left pleural effusion. Otherwise negative. Assessment & Plan - Diagnosis (1) Neutrophilic leukocytosis Is this a current diagnosis for this admission?: Yes Plan: Reactive, w/u pending (2) Thrombocytosis Is this a current diagnosis for this admission?: Yes Plan: Reactive w/u pending (3) Symptomatic anemia Is this a current diagnosis for this admission?: Yes Plan: Hb stable post tx, con't to monitor, 2nd in part to bleeding (4) GI bleed Qualifiers: GI bleed type/associated pathology: melena Qualified Code(s): K92.1 - Melena Is this a current diagnosis for this admission?: Yes Plan: Con't monitoring, surgery following (5) Acute pancreatitis Qualifiers: Pancreatitis type: other Acute pancreatitis complication: no infection or necrosis Qualified Code(s): K85.80 - Other acute pancreatitis without necrosis or infection Is this a current diagnosis for this admission?: Yes Plan: Improved
[2017-12-02 11:35] LABS: HEMOGLOBIN 9.4 g/dL (12.0-15.5); MEAN CORPUSCULAR HEMOGLOBIN 28.4 pg (27.0-33.4); MEAN CORPUSCULAR HGB CONC 33.6 g/dL (32.0-36.0); MEAN CORPUSCULAR VOLUME 85 fl (80-97); RED BLOOD COUNT 3.31 10^6/uL (3.72-5.28); RED CELL DISTRIBUTION WIDTH 15.2 % (11.5-14.0); WHITE BLOOD COUNT 27.6 10^3/uL (4.0-10.5)
[2017-12-02 11:47] LABS: ALANINE AMINOTRANSFERASE 25 U/L (9-52); ALBUMIN 2.4 g/dL (3.5-5.0); ALKALINE PHOSPHATASE 83 U/L (38-126); ANION GAP 9 (5-19); ASPARTATE AMINO TRANSFERASE 32 U/L (14-36); BILIRUBIN,DIRECT 0.4 mg/dL (0.0-0.4); BILIRUBIN,TOTAL 0.6 mg/dL (0.2-1.3); BLOOD UREA NITROGEN 4 mg/dL (7-20); CALCIUM 8.9 mg/dL (8.4-10.2); CARBON DIOXIDE 22 mmol/L (22-30); CHLORIDE 105 mmol/L (98-107); GLUCOSE 98 mg/dL (75-110); LIPASE 305.3 U/L (23-300); MAGNESIUM 1.8 mg/dL (1.6-2.3); PHOSPHORUS 2.1 mg/dL (2.5-4.5); POTASSIUM 3.7 mmol/L (3.6-5.0); SODIUM 135.9 mmol/L (137-145); TOTAL PROTEIN 5.2 g/dL (6.3-8.2)
[2017-12-02 12:05] LABS: PLATELET COUNT 1520 10^3/uL (150-450)
[2017-12-02] MEDS: FENOFIBRATE NANOCRYSTALLIZED 48 MG TABLET PO SCH (12:56)
--- NOTE | 2017-12-02 12:58 | RADIOLOGY REPORT (SQ) ---
EXAM DESCRIPTION: BARIUM ENEMA COMPLETED DATE/TIME: 12/02/2017 11:33 am REASON FOR STUDY: incomplete colonoscopy to 45 cm COMPARISON: CT chest abdomen pelvis 11/28/2017 FLUOROSCOPY TIME: 0.9 minutes 21 series of digital images saved to PACS. TECHNIQUE: Following retrograde filling of the colon with thin liquid barium, fluoroscopic spot and overhead imaging of the colon was obtained and saved to PACS. LIMITATIONS: None. FINDINGS: [employer] imaging demonstrates adequate: Cropped. Normal bowel gas pattern. Mild degenerativ e disc space loss of height and facet arthropathy at L5-S1. Gentle retrograde installation of barium per rectum with the balloon tipped catheter. The distal sig moid colon is markedly abnormal, diffusely narrow with thickened folds likely from chronic diverticul ar inflammation. The patient could not tolerate much pressure per rectum. Small amount of barium was refluxed up to t he splenic flexure colon. There is diffuse descending colon and sigmoid colon diverticulosis. Along the sigmoid colon, some ch ronic appearing ulceration is present with submucosal tracking of barium, which causes a double lumen appearance. No silvana extravasation into an abscess. These findings correlate with coronal reconstr uction image 50, CT exam 11/11/2017 which demonstrates severely luminal narrowing of the distal sigmo id colon and submucosal tracking of contrast along the mesenteric side distal sigmoid. IMPRESSION: Markedly abnormal distal sigmoid colon with luminal narrowing, mucosal irregularity from diverticulosis and inflammation. There is a submucosal pocket of barium tracking along the distal s igmoid colon causing a double-lumen appearance. Unable to evaluate the colon more proximal to the splenic flexure. Patient was unable to tolerate th e pressure on the barium per rectum. COMMENT: Quality ID [id number]: Final reports for procedures using fluoroscopy that document radiation exp osure indices, or exposure time and number of fluorographic images (if radiation exposure indices are not available) TECHNICAL DOCUMENTATION: JOB ID: [id number] [employer]- All Rights Reserved
--- NOTE | 2017-12-02 16:02 | PDOC CONSULTATION ---
Consultation Consult Date: 12/02/17 Attending physician:: AIDA LI Consult reason:: diverticular narrowing History of Present Illness Admission Date/PCP: 11/26/17 12:42 History of Present Illness: I am asked to see this patient, had previously been seen by Dr Caballero and had EGD done was somewhat unremarkable had attempted colonoscopy, I note that it was a difficult procedure, with possible diverticular narrowing with likely peridiverticular hypertrophy could not be completed, scope only advanced to 45 cm ? less, no dictated report yet, spoke with RN in room patient had ACBE done today, it was confirmed that that there is a luminal narrowing but what is more worrisome is the fact that is tracking of barium in a submucosal region showing up as ? possible " double lumen appearance" ? possible limited perforation would not be prudent to attempt another as it could cause complete perforation across all layers of the colon wall she had a CT earlier in her admission that showed possible pancreatitis she was seen for passage of dark stool and upper GI symptoms of nausea and vomiting Past Medical History Cardiac Medical History: Reports: None, Hyperlipidema, Hypertension Pulmonary Medical History: Reports: None EENT Medical History: Reports: None Neurological Medical History: Denies: Seizures GI Medical History: Reports: Diverticulitis Hematology: Reports: None Past Surgical History Past Surgical History: Reports: Hysterectomy, Other - colonoscopy 8 years ago Social History Lives with: Spouse/Significant other Smoking Status: Never Smoker Frequency of Alcohol Use: Rare Hx Recreational Drug Use: No Drugs: None Hx Prescription Drug Abuse: No - Advance Directive Resuscitation Status: Full Code Family History Family History: Hyperlipidemia, Malignancy Parental Family History Reviewed: Yes Children Family History Reviewed: Unknown Sibling(s) Family History Reviewed.: Unknown Medication/Allergy Home Medications: Fenofibric Acid [Fibricor] 105 mg PO DAILY 11/26/17 Levothyroxine Sodium [Synthroid] 0.125 mg PO DAILY 11/26/17 Losartan/Hydrochlorothiazide [Losartan-Hctz 100-25 mg Tab] 1 tab PO DAILY Allergies/Adverse Reactions: Ifghrtg-Xbz-[id number] Reductase Inhibitor Allergy (Verified 11/26/17 11:07) Sulfa (Sulfonamide Antibiotics) Allergy (Verified 11/26/17 11:07) Review of Systems Constitutional: ABSENT: fever(s), headache(s), night sweats Eyes: ABSENT: visual disturbances Ears: ABSENT: hearing changes Nose, Mouth, and Throat: ABSENT: mouth pain Cardiovascular: ABSENT: edema, orthropnea Respiratory: ABSENT: dyspnea, hemoptysis Gastrointestinal: PRESENT: constipation. ABSENT: diarrhea, hematochezia Genitourinary: ABSENT: dysuria, hematuria Musculoskeletal: ABSENT: joint swelling Integumentary: ABSENT: lesions, pruritus Neurological: ABSENT: syncope, tingling, tremor(s), vertigo Endocrine: ABSENT: polydipsia, polyphagia, polyuria Hematologic/Lymphatic: ABSENT: easy bruising Physical Exam Vital Signs: Temp Pulse Resp BP Pulse Ox 98.2 F 69 20 137/39 H 96 12/02/17 11:30 12/02/17 11:30 12/02/17 11:30 12/02/17 11:30 12/02/17 11:30 Intake & Output 12/01/17 12/02/17 12/03/17 06:59 06:59 06:59 Intake Total 1000 1525 Balance 1000 1525 Weight 70.2 kg 70.2 kg General appearance: PRESENT: no acute distress, cooperative Head exam: PRESENT: atraumatic, normocephalic Eye exam: PRESENT: EOMI, PERRLA. ABSENT: nystagmus, periorbital swelling Mouth exam: PRESENT: moist, neck supple Throat exam: PRESENT: tonsillar exudate, tonsillogmegaly Neck exam: PRESENT: meningismus, tenderness, thyromegaly Respiratory exam: PRESENT: symmetrical, unlabored. ABSENT: tachypnea, wheezes Cardiovascular exam: PRESENT: RRR, +S1, +S2 GI/Abdominal exam: PRESENT: hypoactive bowel sounds. ABSENT: rebound Extremities exam: ABSENT: joint swelling Musculoskeletal exam: PRESENT: full ROM Neurological exam: PRESENT: oriented to time, oriented to situation, CN II-XII grossly intact Skin exam: PRESENT: normal color. ABSENT: mottled, pallor, urticaria, vesicles Results Laboratory Results: 12/02/17 11:00 12/02/17 11:00 12/01/17 12/01/17 12/01/17 14:56 14:56 14:56 WBC 21.8 H RBC 3.05 L Hgb 8.8 L Hct 25.9 L MCV 85 MCH 29.0 MCHC 34.2 RDW 15.1 H Plt Count 1660 H* Seg Neutrophils % Not Reportable Lymphocytes % Not Reportable Monocytes % Not Reportable Eosinophils % Not Reportable Basophils % Not Reportable Absolute Neutrophils Not Reportable Absolute Lymphocytes Not Reportable Absolute Monocytes Not Reportable Absolute Eosinophils Not Reportable Absolute Basophils Not Reportable Sodium 136.8 L Potassium 3.8 Chloride 101 Carbon Dioxide 26 Anion Gap 10 BUN 8 Creatinine 0.58 Est GFR ( Amer) > 60 Est GFR (Non-Af Amer) > 60 Glucose 84 Calcium 9.0 Phosphorus Magnesium 1.6 Total Bilirubin AST ALT Alkaline Phosphatase Total Protein Albumin Lipase 278.3 12/02/17 12/02/17 11:00 11:00 WBC 27.6 H RBC 3.31 L Hgb 9.4 L Hct 28.0 L MCV 85 MCH 28.4 MCHC 33.6 RDW 15.2 H Plt Count 1520 H* Seg Neutrophils % Lymphocytes % Monocytes % Eosinophils % Basophils % Absolute Neutrophils Absolute Lymphocytes Absolute Monocytes Absolute Eosinophils Absolute Basophils Sodium 135.9 L Potassium 3.7 Chloride 105 Carbon Dioxide 22 Anion Gap 9 BUN 4 L Creatinine 0.52 Est GFR ( Amer) > 60 Est GFR (Non-Af Amer) > 60 Glucose 98 Calcium 8.9 Phosphorus 2.1 L Magnesium 1.8 Total Bilirubin 0.6 AST 32 ALT 25 Alkaline Phosphatase 83 Total Protein 5.2 L Albumin 2.4 L Lipase 305.3 H Impressions: Chest X-Ray 11/26/17 11:37 IMPRESSION: NO ACUTE RADIOGRAPHIC FINDING IN THE CHEST. Abdomen/Pelvis CT 11/28/17 00:00 IMPRESSION: Diffuse pancreatitis with peripancreatic fat stranding and fluid along the left gutter. No pancreatic masses. Chest CT 11/28/17 00:00 IMPRESSION: Small left pleural effusion. Otherwise negative. Barium Enema 12/02/17 08:00 IMPRESSION: Markedly abnormal distal sigmoid colon with luminal narrowing, mucosal irregularity from diverticulosis and inflammation. There is a submucosal pocket of barium tracking along the distal sigmoid colon causing a double-lumen appearance. Unable to evaluate the colon more proximal to the splenic flexure. Patient was unable to tolerate the pressure on the barium per rectum. Assessment & Plan - Diagnosis (1) Acute pancreatitis Qualifiers: Pancreatitis type: other Acute pancreatitis complication: no infection or necrosis Qualified Code(s): K85.80 - Other acute pancreatitis without necrosis or infection Is this a current diagnosis for this admission?: Yes Plan: likely explaining patient's initial presentation of nausea and vomiting follow up on labs (2) Anemia Qualifiers: Anemia type: unspecified type Qualified Code(s): D64.9 - Anemia, unspecified Is this a current diagnosis for this admission?: Yes Plan: was worked up for possible gi bleed to explain the anemia however EGD was performed and attempted colonoscopy but was not able to have completed procedure due narrowing in the sigmoid area confirmed by ACBE and incomplete colonoscopy attempt (3) Diverticulosis Plan: moderately sever diverticulosis in the area of the sigmoid causing luminal narrowing due to peridiverticular hypertrophy incomplete optical colonoscopy had ACBE done conern here is for the reading of barium tacking along a submucosal layer could be a contained perforation is not a candidate to undergo another colonoscopy at this point in time since could cause complete perforation would follow along clinically bleeding scan if concerned about bleeding - Time Time Spent: 50 to 70 Minutes
--- NOTE | 2017-12-02 16:07 | PDOC PROGRESS REPORT ---
Subjective Progress Note for:: 12/02/17 Reason For Visit: HYPOKALEMIA,HYPONATREMIA,LEUKOCYTOSIS,THROMBYCYTOS 72-year-old female with a past medical history of Hypertension Hypothyroidism Hyperlipidemia. Dented to the hospital on November 26 with malaise and fatigue. She went to see her primary care physician and was found to have multiple lab abnormalities and was asked to go to the emergency room. She was found to have neutropenia, cough felt to be secondary to viral syndrome. She also has thrombocytosis and neutrophilic leukocytosis with no fever. CAT scan of the abdomen and pelvis showed pancreatitis and severe diverticulosis of the sigmoid colon. Hemoglobin was trending down and she was heme positive. He was given packed red blood cells. An endoscopy was done by Dr. Coyle which was essentially normal. On December 01 he attempted a colonoscopy but the scope could not be extended beyond 45 cm. The plan is for an air-contrast barium enema today. Physical Exam Vital Signs: Temp Pulse Resp BP Pulse Ox 98.6 F 68 18 135/52 H 95 12/02/17 04:01 12/02/17 07:00 12/02/17 04:01 12/02/17 04:01 12/02/17 04:01 Intake & Output 12/01/17 12/02/17 12/03/17 06:59 06:59 06:59 Intake Total 1000 1525 Balance 1000 1525 Weight 70.2 kg 70.2 kg Additional comments: Elderly female lying comfortably in bed not in acute distress Lungs: Clear to auscultation bilaterally normal respiratory effort Cardiac: S1-S2 regular no murmurs heard no peripheral edema no cyanosis no calf tenderness Skin: Warm and dry Abdomen: Soft, no focal tenderness normal bowel sounds Results Laboratory Results: 12/01/17 14:56 12/01/17 14:56 12/01/17 12/01/17 12/01/17 14:56 14:56 14:56 WBC 21.8 H RBC 3.05 L Hgb 8.8 L Hct 25.9 L MCV 85 MCH 29.0 MCHC 34.2 RDW 15.1 H Plt Count 1660 H* Seg Neutrophils % Not Reportable Lymphocytes % Not Reportable Monocytes % Not Reportable Eosinophils % Not Reportable Basophils % Not Reportable Absolute Neutrophils Not Reportable Absolute Lymphocytes Not Reportable Absolute Monocytes Not Reportable Absolute Eosinophils Not Reportable Absolute Basophils Not Reportable Sodium 136.8 L Potassium 3.8 Chloride 101 Carbon Dioxide 26 Anion Gap 10 BUN 8 Creatinine 0.58 Est GFR ( Amer) > 60 Est GFR (Non-Af Amer) > 60 Glucose 84 Calcium 9.0 Magnesium 1.6 Lipase 278.3 Impressions: Chest X-Ray 11/26/17 11:37 IMPRESSION: NO ACUTE RADIOGRAPHIC FINDING IN THE CHEST. Abdomen/Pelvis CT 11/28/17 00:00 IMPRESSION: Diffuse pancreatitis with peripancreatic fat stranding and fluid along the left gutter. No pancreatic masses. Chest CT 11/28/17 00:00 IMPRESSION: Small left pleural effusion. Otherwise negative. Assessment & Plan - Diagnosis (1) Acute pancreatitis Qualifiers: Pancreatitis type: other Acute pancreatitis complication: no infection or necrosis Qualified Code(s): K85.80 - Other acute pancreatitis without necrosis or infection Is this a current diagnosis for this admission?: Yes Plan: Improving. Diet was advanced with no problems. To be secondary to viral infection. (2) Anemia Qualifiers: Anemia type: unspecified type Qualified Code(s): D64.9 - Anemia, unspecified Is this a current diagnosis for this admission?: Yes Plan: Workup underway. Received packed red blood cells. (3) Cough Is this a current diagnosis for this admission?: Yes Plan: Due to acute bronchitis. Improved. (4) GI bleed Qualifiers: GI bleed type/associated pathology: melena Qualified Code(s): K92.1 - Melena Is this a current diagnosis for this admission?: Yes Plan: There contrast barium enema planned for today. Endoscopy was unremarkable per (5) HLD (hyperlipidemia) Is this a current diagnosis for this admission?: Yes (6) Hypokalemia Is this a current diagnosis for this admission?: Yes Plan: Replete and monitor. (7) Hyponatremia Is this a current diagnosis for this admission?: Yes Plan: resolved (8) Hypothyroid Qualifiers: Hypothyroidism type: acquired Qualified Code(s): E03.9 - Hypothyroidism, unspecified Is this a current diagnosis for this admission?: Yes Plan: Synthroid (9) Neutrophilic leukocytosis Is this a current diagnosis for this admission?: Yes Plan: Work up underway (10) Symptomatic anemia Is this a current diagnosis for this admission?: Yes (11) Thrombocytosis Is this a current diagnosis for this admission?: Yes Plan: Work up underway - Time Time Spent with patient: 25-34 minutes - Plan Summary Plan Summary: Plan for possible laparotomy tomorrow. ? concern for bleeding risk given thrombocytosis. Dr. Clifford will discuss with Dr. Brock.
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
[2017-12-02] MEDS ORDERED: GLUCAGON,HUMAN RECOMB 1 MG INJ SUBCUT PRN (18:03)
[2017-12-02] MEDS ORDERED: DEXTROSE 50%-WATER 25 GM/50 ML DISP.SYRIN IV PRN ×2 (18:03)
[2017-12-02] MEDS ORDERED: DEXTROSE 40% GEL 15 GM TUBE PO PRN ×2 (18:03)
--- NOTE | 2017-12-02 18:08 | Operative Report ---
Nonrecallable Operative Report DATE OF SURGERY: 12/02/17 PREOPERATIVE DIAGNOSIS: 1. Anemia of unexplained etiology POSTOPERATIVE DIAGNOSIS: Same with possible sigmoid colon pathology OPERATION: Incomplete colonoscopy to 45 cm SURGEON: VIKKI HERNANDEZ ANESTHESIA: Moderate Sedation TISSUE REMOVED OR ALTERED: None COMPLICATIONS: None ESTIMATED BLOOD LOSS: Scant INTRAOPERATIVE FINDINGS: See below PROCEDURE: This is the second dictation for this procedure The patient was taken from the fifth floor to the endoscopy suite on mid day December 01Thursday. Appropriate monitoring devices were attached and appropriate level sedation induced. Surgical plan surgical timeout were conducted. External anal exam revealed hemorrhoids. Rectal exam showed no masses. A flexible pediatric scope was advanced to the anorectal canal to approximately 40-45 cm. From the anal verge to approximately 45 cm there was no evidence of pathology other than a few diverticuli; despite significant sedation, and manipulating the patient as well as extracorporeal manipulation of the abdominal wall, I was unable to advance the scope through this area primarily due to bowing of the scope. The gastric colonoscope was withdrawn to the patient, and a adult gastroscope was attempted as this area and again despite significant sedation, and patient body manipulation, were not able to advance the scope through this area. Therefore the procedure was aborted. No biopsies were taken. The impression was that of a sigmoid colon partial obstruction versus extrinsic compression versus other problem preventing scope advancement. Recommendations 1. We will keep patient on clear liquids 2. We will set patient up for air-contrast barium enema
--- NOTE | 2017-12-02 19:09 | EKG REPORT ---
SEVERITY:- BORDERLINE ECG - SINUS RHYTHM VENTRICULAR PREMATURE COMPLEX BORDERLINE T ABNORMALITIES, DIFFUSE LEADS : Confirmed by: Safia Melendez 02-Dec-2017 19:07:24
[2017-12-02] MEDS ORDERED: PEG 3350/NA SULF,BICARB,CL/KCL 4000 ML PO ONE (23:00)
[2017-12-02] MEDS: HYDROCODONE BIT/HOMATROPINE 5-1.5 MG TABLET PO PRN (23:59)
[2017-12-03] MEDS: NORMAL SALINE 1000 ML 1,000 ML IV PRN ×2 (01:55→08:32)
[2017-12-03] MEDS ORDERED: AMPICILLIN SODIUM/SULBACTAM NA 3 GM in NORMAL SALINE 100 ML IV PRN (05:00)
[2017-12-03] MEDS: LEVOTHYROXINE SODIUM 0.088 MG TABLET PO SCH (05:10)
[2017-12-03] MEDS: BENZONATATE 100 MG CAPSULE PO SCH ×3 (05:10→22:06)
[2017-12-03] MEDS: FENOFIBRATE NANOCRYSTALLIZED 48 MG TABLET PO SCH (09:31)
[2017-12-03] MEDS ORDERED: METOCLOPRAMIDE HCL INJ/PF 10 MG/2 ML SDV ONE (10:13)
[2017-12-03] MEDS ORDERED: NEOSTIGMINE METHYLSULFATE 10 MG/10 ML VIAL ONE (10:13)
[2017-12-03] MEDS ORDERED: KETOROLAC TROMETHAMINE 60 MG/2 ML SDV ONE (10:13)
[2017-12-03] MEDS ORDERED: VECURONIUM BROMIDE INJ 10 MG VIAL IV ONE (10:13)
[2017-12-03] MEDS ORDERED: ONDANSETRON HCL INJ/PF 4 MG/2 ML SDV ONE (10:13)
[2017-12-03] MEDS ORDERED: SUCCINYLCHOLINE CHLORIDE INJ 200 MG/10 ML VIAL ONE (10:13)
[2017-12-03] MEDS ORDERED: DEXAMETHASONE SOD PHOSPHATE INJ 4 MG/1 ML VIAL ONE (10:13)
[2017-12-03] MEDS ORDERED: GLYCOPYRROLATE INJ 0.4 MG/2 ML VIAL ONE (10:13)
[2017-12-03] MEDS ORDERED: LIDOCAINE 2% INJ-PF (20 MG/ML) 2 ML AMPUL ONE (10:13)
[2017-12-03 10:20] LABS: HEMATOCRIT 26.6 % (36.0-47.0); HEMOGLOBIN 8.9 g/dL (12.0-15.5); MEAN CORPUSCULAR HEMOGLOBIN 28.7 pg (27.0-33.4); MEAN CORPUSCULAR HGB CONC 33.5 g/dL (32.0-36.0); MEAN CORPUSCULAR VOLUME 86 fl (80-97); RED CELL DISTRIBUTION WIDTH 15.4 % (11.5-14.0); WHITE BLOOD COUNT 27.2 10^3/uL (4.0-10.5)
[2017-12-03 10:24] LABS: PLATELET COUNT 1309 10^3/uL (150-450)
[2017-12-03 10:31] LABS: ALANINE AMINOTRANSFERASE 30 U/L (9-52); ALBUMIN 2.4 g/dL (3.5-5.0); ALKALINE PHOSPHATASE 82 U/L (38-126); ANION GAP 14 (5-19); ASPARTATE AMINO TRANSFERASE 32 U/L (14-36); BILIRUBIN,DIRECT 0.3 mg/dL (0.0-0.4); BILIRUBIN,TOTAL 0.4 mg/dL (0.2-1.3); BLOOD UREA NITROGEN 5 mg/dL (7-20); CALCIUM 8.6 mg/dL (8.4-10.2); CARBON DIOXIDE 18 mmol/L (22-30); CHLORIDE 108 mmol/L (98-107); GLUCOSE 96 mg/dL (75-110); MAGNESIUM 1.6 mg/dL (1.6-2.3); PHOSPHORUS 2.3 mg/dL (2.5-4.5); POTASSIUM 3.3 mmol/L (3.6-5.0); SODIUM 139.5 mmol/L (137-145); TOTAL PROTEIN 5.2 g/dL (6.3-8.2)
[2017-12-03] MEDS ORDERED: NORMAL SALINE 1000 ML 1,000 ML IV PRN ×2 (11:57→18:36)
[2017-12-03] MEDS ORDERED: HYDROMORPHONE HCL INJ/PF 2 MG/ML AMPULE ONE (12:20)
[2017-12-03] MEDS ORDERED: FENTANYL CITRATE INJ/PF 100 MCG/2 ML AMPUL ONE (12:21)
[2017-12-03] MEDS ORDERED: MIDAZOLAM 2 MG/2 ML INJ ONE (12:21)
[2017-12-03] MEDS ORDERED: EPHEDRINE SULFATE INJ 50 MG/1 ML AMPULE ONE (12:21)
[2017-12-03] MEDS ORDERED: ACETAMINOPHEN 100 ML IV ONE (12:21)
[2017-12-03] MEDS ORDERED: PROPOFOL INJ 200 MG/20 ML VIAL IV ONE (12:21)
[2017-12-03] MEDS ORDERED: BUPIVACAINE INJ/PF LIPOSOME/PF 266 MG/20 ML SDV ONE (12:38)
[2017-12-03] MEDS ORDERED: BUPIVACAINE HCL 0.25 % INJ/PF (2.5 MG/1 ML) 30 ML VIAL ONE (12:38)
[2017-12-03] MEDS ORDERED: AMPICILLIN SOD/SULBACTAM 1.5 GM VIAL ONE (13:00)
[2017-12-03] MEDS ORDERED: DIPHENHYDRAMINE HCL 50 MG/ML VIAL IV PRN (14:46)
[2017-12-03] MEDS ORDERED: PROMETHAZINE HCL INJ 25 MG/1 ML VIAL IV PRN ×2 (14:46)
[2017-12-03] MEDS ORDERED: MEPERIDINE HCL/PF INJ 25 MG/1 ML DISP.SYRIN IV PRN (14:46)
[2017-12-03] MEDS ORDERED: ONDANSETRON HCL INJ/PF 4 MG/2 ML SDV IV PRN (14:46)
[2017-12-03] MEDS ORDERED: MORPHINE SULFATE 10 MG/ML INJ IV PRN (14:46)
[2017-12-03] MEDS ORDERED: FENTANYL CITRATE INJ/PF 100 MCG/2 ML AMPUL IV PRN ×3 (14:46)
[2017-12-03] MEDS ORDERED: OXYCODONE-ACETAMINOPHEN 5-325 MG TABLET PO PRN ×2 (14:46)
--- NOTE | 2017-12-03 15:49 | [facility] OPERATIVE REPORT E ---
[facility] NAME: JENNIFER ZAMORA AGE: 72Y DATE OF SURGERY: 12/01/2017 ROOM: 531 PREOPERATIVE DIAGNOSIS: Anemia of unexplained etiology. POSTOPERATIVE DIAGNOSIS: 1. Incomplete colonoscopy. 2. Diverticulosis. OPERATION: Colonoscopy to 45 cm. SURGEON: VIKKI HERNANDEZ M.D. ANESTHESIA: Conscious sedation. COMPLICATIONS: None. ESTIMATED BLOOD LOSS: None. DRAINS: None. TISSUE REMOVED OR ALTERED: None. PROCEDURE: Patient was taken from the third floor to the fifth floor endoscopy suite where conscious sedation was induced. She was placed in the left lateral decubitus position. Surgical plan and surgical timeout were conducted. A rectal exam was performed. There were external hemorrhoids identified, non-thrombosed. Rectal exam revealed no palpable or visible anorectal pathology. The flexible pediatric colonoscope was advanced through the anorectal canal to approximately 40 cm, however, scope could not be advanced due to patient intolerance and inability to successfully advance the scope due to buckling. The patient was manipulated into the right lateral decubitus position, supine position, and extreme left lateral position, with no improvement in scope advancement. The scope was withdrawn and a pediatric gastroscope was used. Unfortunately, again, we could only get the scope up to about 45 cm. Despite the patient having 7 mg of Versed and 175 mg of fentanyl, she could not settle down sufficiently for us to advance the scope further. Therefore, the procedure was aborted. The scope was withdrawn. There was no pathology identified to explain the patient's anemia. POSTOPERATIVE PLAN: Will be have the patient undergo air contrast barium enema. Orders were written. Primary care provider notified. DICTATING PHYSICIAN: VIKKI HERNANDEZ M.D. [id number] PHY#: [id number] ID: [id number] JOB#: [id number] ACCT: [id number] cc:VIKKI HERNANDEZ M.D., NADIA M.D. >
--- NOTE | 2017-12-03 16:09 | Operative Report ---
Nonrecallable Operative Report DATE OF SURGERY: 12/03/17 PREOPERATIVE DIAGNOSIS: 1. Elongated sigmoid colon stricture. 2. Extensive diverticulosis of the left colon. 3. Acute pancreatitis POSTOPERATIVE DIAGNOSIS: Same OPERATION: 1. Exploratory laparotomy. 2. Left colectomy in conjunction with rectosigmoid colectomy. 3. Mobilization of splenic flexure. 4. Transverse colostomy. 5. Pelvic drainage SURGEON: VIKKI COYLE ANESTHESIA: GA TISSUE REMOVED OR ALTERED: 1. Rectosigmoid colon. 2. Left colon COMPLICATIONS: None ESTIMATED BLOOD LOSS: 2 50 cc INTRAOPERATIVE FINDINGS: Below PROCEDURE: The patient was taken from the preop holding her to the main operating room where general anesthesia was induced uneventfully. A second peripheral IV access was established in the right upper extremity by Dr. Abarca. She was placed in the anatomy position in [facility]. Rectal exam was performed by Dr. Coyle and some residual liquid mucus bowel prep was evacuated. Butt catheter was inserted draining clear yellow urine. The abdomen was exposed, prepped and draped sterile fashion. Surgical plan surgical timeout were conducted. The abdomen was opened through standard midline incision primarily below the umbilicus and slightly above. Bookwalter retractor was inserted. Findings are significant for moderate amount of clear to slightly yellow tinged ascitic fluid. There is approximately 1 L evacuated. There is no foul smell drainage perforation or bleeding. The fluid was sent for logic analysis. Palpable and visual inspection of the peritoneal cavity revealed fairly mobile left colon, a matted down the rectosigmoid colon, no visible or palpable pathology involving the stomach, all intestine, or right and left lobes of the liver. Of note transverse colon was tethered cephalad towards the gastrocolic omentum; palpation of the stomach revealed a hardened pancreas consistent with preoperative diagnosis of acute pancreatitis is demonstrated by CT scan findings. We proceeded to perform the planned left colectomy in conjunction with rectosigmoid resection to eradicate patient of extensive diverticular disease involving the left colon, as well as the true segment of sigmoid colon. The pathology was primarily involving the sigmoid colon and upper rectum. In fact the rectosigmoid colon was almost forming a nome configuration due to stricture and patient to the patient's left pelvic sidewall. Of note the patient had retained tubes, uterus and ovaries. All these structures appeared grossly normal. We began taking down the white line of Toldt, with a moderate amount of inflammation encountered in the retroperitoneal space. The dissection was taken all the way down to the true pelvis. The left tube and ovary were scarred down to the rectosigmoid region and a fair amount of blunt and electrocautery dissection was required here. We did see the left ureter and kept out of harm's way during the entire dissection. Eventually we came around the top of the peritoneal reflection of the upper rectum, and then took our dissection up the right side of the rectosigmoid mesial colon. A suitable section of the colon between the colon and the sigmoid colon was chosen so as to facilitate the resection. The colon was divided with the ETELVINA 55 stapler. The mesocolon was taken down with the LigaSure device. We worked in a circumferential fashion, and pulled the rectosigmoid colon up out of the pelvis in its entirety. Process appeared all inflammatory and did not resemble a malignant process. Eventually got down to the upper rectum again below the peritoneal reflection. The tissue became softer, and a suitable site for transection of the upper rectum was identified. Dr. Coyle went down below and dilated at the anorectal canal with 25, 29 and 33 obturators without difficulty. We then performed rigid sigmoidoscopy and examined this area. The anal canal, lower rectum and mid rectum appeared grossly uninvolved in diverticular disease. The point of planned transection of the rectum was clearly below the diseased segment. Sigmoidoscope was removed Dr. Coyle scrubbed back in and we proceeded to act the upper rectum, approximately 12-14 cm from the anal verge using the curvilinear Ethicon stapling device. The rectosigmoid colon was removed and sent to pathology for analysis We now call our attention to the colon. The white line of Toldt was taken up proximally all the way to splenic flexure. We repositioned our retractors, and mobilized the entire splenic flexure using electrocautery as well as LigaSure. As we came around towards the gastrocolic side of the transverse colon beginning of encounter edema and inflammatory changes consistent with known pancreatitis. The gastrocolic omentum was taken off of the transverse colon. This was executed from the mid transverse colon all the way to the splenic flexure. Reviewed preoperative imaging including CT scan, and barium enema which confirmed multiple extensive diverticulosis of the left colon, but a reasonably spared although limited imaging was available, of the transverse colon. Therefore felt it was appropriate to take the left colon in its entirety and this was affected by taking the left mesocolon down with LigaSure device. We came all the way around the splenic flexure very nicely without injuring the spleen or getting into the peripancreatic edema. Site for transection of the transverse colon was chosen several centimeters to the left of the middle colic vessels. The left colon was transected with the ETELVINA 55 stapler and sent off to pathology for permanent analysis as the left: We now face the challenge of trying to bring the transverse colon down to the pelvis for consideration of a primary anastomosis. We spent approximately 30 minutes mobilizing the transverse colon as best we could, but because of the edema and fixation of the tissues due to pancreatitis, the transverse mesocolon was very tethered. DeSpite my best efforts and even dividing some of the left transverse mesocolon, I was unable to get sufficient sedation of the colon to bring down to the pelvis for anastomosis. The only other option at this point would have been to complete an entire colectomy and commit the patient to an ileo-distal anastomosis which I did not think was appropriate; furthermore I did not assist with the patient. I did discuss with the patient the possibility of a colostomy. At this point I felt this was the most appropriate and safest maneuver to perform. The colostomy may be temporary and she may be able to be reconnected at a later time after her pancreatitis subsides and further mobilization of the transverse mesocolon can be affected. Suitable site for the amount of the colostomy was chosen and a hole was created in the anterior abdominal wall using electrocautery. Subcutaneous plug removed. The anterior posterior sheath was opened vertically. The colostomy was brought to the intra-abdominal wall uneventfully. We checked the peritoneal cavity for bleeding there was none. Nasogastric tube is in good position. We irrigated the peritoneal cavity out, placed a large Steven drain in the deep pelvis and secured to the skin with 2-0 Prolene suture. The abdominal wall was closed vertically with 2 #1 PDS sutures. The colostomy was opened with electrocautery, matured with multiple 4-0 Vicryl sutures. I digitalized colostomy multiple times and there was a caudad direction to the opening in the fascia but I felt it was acceptable. Colostomy did bleed satisfactorily. There was never any question about the viability of the ostomy. Appropriate appliance bag was applied. Patient tolerated procedure well, extubated and taken recovery in stable condition.
[2017-12-03] MEDS ORDERED: KETOROLAC TROMETHAMINE INJ/PF 30 MG/1 ML SDV IV PRN (16:15)
[2017-12-03] MEDS ORDERED: PHENYLEPHRINE HCL INJ/PF 10 MG/1 ML SDV ONE (17:05)
[2017-12-03 17:53] LABS: HEMATOCRIT 23.9 % (36.0-47.0); MEAN CORPUSCULAR HEMOGLOBIN 28.2 pg (27.0-33.4); MEAN CORPUSCULAR HGB CONC 32.2 g/dL (32.0-36.0); MEAN CORPUSCULAR VOLUME 88 fl (80-97); RED BLOOD COUNT 2.73 10^6/uL (3.72-5.28); RED CELL DISTRIBUTION WIDTH 15.9 % (11.5-14.0)
[2017-12-03] MEDS ORDERED: ACETAMINOPHEN INJ/PF 1000 MG/100 ML SDV IV SCH (18:00)
[2017-12-03] MEDS ORDERED: NORMAL SALINE 1000 ML 1,000 ML IV ONE (18:08)
[2017-12-03 18:10] LABS: ANION GAP 11 (5-19); BLOOD UREA NITROGEN 5 mg/dL (7-20); CALCIUM 7.7 mg/dL (8.4-10.2); CARBON DIOXIDE 19 mmol/L (22-30); CHLORIDE 111 mmol/L (98-107); GLUCOSE 116 mg/dL (75-110); POTASSIUM 3.1 mmol/L (3.6-5.0); SODIUM 140.6 mmol/L (137-145)
[2017-12-03 18:13] LABS: ABSOLUTE LYMPHOCYTES# (MANUAL) 2.9 10^3/uL (0.5-4.7); ABSOLUTE MONOCYTES # (MANUAL) 0.7 10^3/uL (0.1-1.4); ABSOLUTE NEUTROPHILS# (MANUAL) 32.6 10^3/uL (1.7-8.2); BAND NEUTROPHILS % (MANUAL) 6 % (3-5); BASOPHILS % (MANUAL) 1 % (0-2); EOSINOPHILS % (MANUAL) 0 % (0-6); LYMPHOCYTES % (MANUAL) 8 % (13-45); MONOCYTES % (MANUAL) 2 % (3-13); SEGMENTED NEUTROPHILS % (MAN) 83 % (42-78); TOTAL CELLS COUNTED 100
[2017-12-03 18:21] LABS: PLATELET COMMENT INCREASED; PLATELET LARGE PRESENT
[2017-12-03 18:22] LABS: HYPOCHROMASIA 2+; POLYCHROMASIA SLIGHT
[2017-12-03 18:26] LABS: HEMOGLOBIN 7.7 g/dL (12.0-15.5)
[2017-12-03 18:27] LABS: ARTERIAL BLOOD BASE EXCESS -9.9 mmol/L; ARTERIAL BLOOD H2CO3 0.87 mmol/L (1.05-1.35); ARTERIAL BLOOD HCO3 14.9 mmol/L (20-26); ARTERIAL BLOOD PCO2 28.8 mmHg (35-45); ARTERIAL BLOOD PH 7.33 (7.35-7.45); ARTERIAL BLOOD PO2 84.9 mmHg (80-100); ARTERIAL BLOOD TOTAL CO2 15.8 mmol/L (21-25)
[2017-12-03 18:29] LABS: ARTERIAL BLOOD FIO2 60%
[2017-12-03 18:29] LABS: PLATELET COUNT 1261 10^3/uL (150-450)
[2017-12-03 18:30] LABS: WHITE BLOOD COUNT 36.6 10^3/uL (4.0-10.5)
[2017-12-03] MEDS ORDERED: NORMAL SALINE 500 ML IV ONE (18:30)
[2017-12-03] MEDS ORDERED: NORMAL SALINE 250 ML IV PRN ×2 (18:45)
[2017-12-03 20:05] LABS: HEMATOCRIT 24.6 % (36.0-47.0); MEAN CORPUSCULAR HGB CONC 32.4 g/dL (32.0-36.0); MEAN CORPUSCULAR VOLUME 87 fl (80-97); RED BLOOD COUNT 2.84 10^6/uL (3.72-5.28); RED CELL DISTRIBUTION WIDTH 16.1 % (11.5-14.0)
[2017-12-03] MEDS: POTASSI CL 20 MEQ/50 ML RIDER 20 MEQ/50 ML RTUPB IV SCH ×3 (20:09→22:52)
[2017-12-03] MEDS: ACETAMINOPHEN 100 ML IV SCH ×2 (20:10→23:47)
--- NOTE | 2017-12-03 20:20 | RADIOLOGY REPORT (SQ) ---
EXAM DESCRIPTION: CHEST SINGLE VIEW COMPLETED DATE/TIME: 12/03/2017 8:02 pm REASON FOR STUDY: central line placement COMPARISON: None. EXAM PARAMETERS: NUMBER OF VIEWS: One view. TECHNIQUE: Single frontal radiographic view of the chest acquired. RADIATION DOSE: NA LIMITATIONS: None. FINDINGS: LUNGS AND PLEURA: No pneumothorax. Hazy opacity of the left lung with indistinct appearan ce of the hemidiaphragm. MEDIASTINUM AND HILAR STRUCTURES: No masses. Contour normal. HEART AND VASCULAR STRUCTURES: Heart upper limits of normal in size. Normal vasculature. BONES: No acute findings. HARDWARE: Endotracheal tube with the tip located 3 cm proximal to the maico. Nasogastric tube with the tip in the stomach. Central line with the tip at the level of the right atrium. OTHER: No other significant finding. IMPRESSION: 1. LIFE LINES DESCRIBED. NO PNEUMOTHORAX FOLLOWING CENTRAL LINE PLACEMENT. 2. HAZY OPACITY IN THE LEFT LUNG WITH INDISTINCT APPEARANCE OF THE LEFT HEMIDIAPHRAGM. THIS PROBABLY IS DUE TO PLEURAL EFFUSION WITH UNDERLYING ATELECTASIS. TECHNICAL DOCUMENTATION: JOB ID: [id number] [employer]- All Rights Reserved
[2017-12-03 20:28] LABS: ABSOLUTE NEUTROPHILS# (MANUAL) 43.7 10^3/uL (1.7-8.2); BAND NEUTROPHILS % (MANUAL) 6 % (3-5); BASOPHILS % (MANUAL) 0 % (0-2); EOSINOPHILS % (MANUAL) 0 % (0-6); LYMPHOCYTES % (MANUAL) 8 % (13-45); MONOCYTES % (MANUAL) 4 % (3-13); SEGMENTED NEUTROPHILS % (MAN) 82 % (42-78); TOTAL CELLS COUNTED 100
[2017-12-03 20:29] LABS: ANISOCYTOSIS 1+; PLATELET COMMENT INCREASED; PLATELET LARGE PRESENT; TOXIC GRANULATION SLIGHT
[2017-12-03 20:31] LABS: POLYCHROMASIA SLIGHT
[2017-12-03 20:52] LABS: HYPOCHROMASIA 1+
[2017-12-03 20:54] LABS: PLATELET COUNT 1597 10^3/uL (150-450)
[2017-12-03 20:55] LABS: WHITE BLOOD COUNT 49.7 10^3/uL (4.0-10.5)
--- NOTE | 2017-12-03 21:22 | Operative Report ---
Operative Report DATE OF SURGERY: 12/03/17 PREOPERATIVE DIAGNOSIS: Hypotension, critical need for central intravenous access POSTOPERATIVE DIAGNOSIS: Same OPERATION: Right subclavian triple-lumen central venous catheter placement SURGEON: ALVAREZ FENG ANESTHESIA: Local TISSUE REMOVED OR ALTERED: None COMPLICATIONS: None ESTIMATED BLOOD LOSS: minimal INTRAOPERATIVE FINDINGS: None PROCEDURE: Informed consent was obtained. Procedure was done in the intensive care unit. Patient's right neck and chest were prepped and draped in usual sterile fashion. Local anesthetic was administered. The right subclavian vein was entered without difficulty. Triple-lumen central venous catheter was placed via the Seldinger technique. The distal port intermittently withdrew blood but the middle and proximal ports withdrew blood easily. All the ports flushed easily. The catheter was sutured in place and dressings were applied. Stat portable chest x-ray was ordered. Patient tolerated procedure well with no apparent complications.
[2017-12-03] MEDS: AMPICILLIN SODIUM/SULBACTAM NA 3 GM in NORMAL SALINE 100 ML IV SCH (22:00)
[2017-12-03] MEDS ORDERED: KETAMINE HCL INJ 500 MG/10 ML VIAL IV ONE (22:00)
[2017-12-03] MEDS: IMIPENEM/CILASTATIN SODIUM 500 MG in NORMAL SALINE 100 ML IV SCH (22:01)
[2017-12-03] MEDS: MAGNESIUM SULFATE 1 GM/D5W 100 ML IV SCH ×2 (22:04→22:51)
[2017-12-03] MEDS: FAMOTIDINE INJ/PF 20 MG/2 ML SDV IV SCH (22:06)
[2017-12-03] MEDS: PROPOFOL 100 ML IV PRN (22:53)
[2017-12-03] MEDS: METRONIDAZOLE 500 MG/NS RTU 100 ML IV SCH (23:47)
[2017-12-03] MEDS: DEXTROSE 5%-WATER 250 ML with PHENYLEPHRINE HCL 40 MG IV PRN ×2 (23:48)
[2017-12-04 00:03] LABS: CREATINE KINASE MB 6.9 ng/mL (<4.55)
[2017-12-04 00:10] LABS: TROPONIN I 1.72 ng/mL
[2017-12-04 04:08] LABS: CREATINE KINASE MB 8.53 ng/mL (<4.55)
[2017-12-04 04:13] LABS: TROPONIN I 2.31 ng/mL
[2017-12-04 04:49] LABS: ARTERIAL BLOOD BASE EXCESS -8.3 mmol/L; ARTERIAL BLOOD H2CO3 0.76 mmol/L (1.05-1.35); ARTERIAL BLOOD HCO3 14.8 mmol/L (20-26); ARTERIAL BLOOD O2 SATURATION 98.7 % (94-98); ARTERIAL BLOOD PCO2 25.2 mmHg (35-45); ARTERIAL BLOOD PH 7.39 (7.35-7.45); ARTERIAL BLOOD TOTAL CO2 15.6 mmol/L (21-25)
[2017-12-04 04:52] LABS: ARTERIAL BLOOD FIO2 50%
[2017-12-04 05:06] LABS: HEMATOCRIT 33.6 % (36.0-47.0); MEAN CORPUSCULAR HEMOGLOBIN 28.9 pg (27.0-33.4); MEAN CORPUSCULAR HGB CONC 33.5 g/dL (32.0-36.0); MEAN CORPUSCULAR VOLUME 86 fl (80-97); RED CELL DISTRIBUTION WIDTH 15.1 % (11.5-14.0)
[2017-12-04 05:07] LABS: ALANINE AMINOTRANSFERASE 77 U/L (9-52); ALBUMIN 2.2 g/dL (3.5-5.0); ALKALINE PHOSPHATASE 69 U/L (38-126); ANION GAP 10 (5-19); ASPARTATE AMINO TRANSFERASE 171 U/L (14-36); BILIRUBIN,DIRECT 0.9 mg/dL (0.0-0.4); BLOOD UREA NITROGEN 7 mg/dL (7-20); CALCIUM 7.6 mg/dL (8.4-10.2); CARBON DIOXIDE 17 mmol/L (22-30); CHLORIDE 111 mmol/L (98-107); GLUCOSE 201 mg/dL (75-110); MAGNESIUM 1.9 mg/dL (1.6-2.3); PHOSPHORUS 4.2 mg/dL (2.5-4.5); SODIUM 137.9 mmol/L (137-145); TOTAL PROTEIN 4.7 g/dL (6.3-8.2)
[2017-12-04 05:15] LABS: POTASSIUM 4.3 mmol/L (3.6-5.0)
[2017-12-04 05:18] LABS: HEMOGLOBIN 11.3 g/dL (12.0-15.5)
[2017-12-04 05:22] LABS: WHITE BLOOD COUNT 41.3 10^3/uL (4.0-10.5)
[2017-12-04 05:23] LABS: PLATELET COUNT 1477 10^3/uL (150-450)
[2017-12-04] MEDS: IMIPENEM/CILASTATIN SODIUM 500 MG in NORMAL SALINE 100 ML IV SCH ×2 (05:25→14:12)
[2017-12-04] MEDS: ACETAMINOPHEN 100 ML IV SCH ×3 (05:25→17:42)
[2017-12-04] MEDS: LEVOTHYROXINE SODIUM 0.088 MG TABLET PO SCH (05:26)
[2017-12-04 05:27] LABS: ABSOLUTE LYMPHOCYTES# (MANUAL) 1.7 10^3/uL (0.5-4.7); ABSOLUTE MONOCYTES # (MANUAL) 1.2 10^3/uL (0.1-1.4); ABSOLUTE NEUTROPHILS# (MANUAL) 38.4 10^3/uL (1.7-8.2); BAND NEUTROPHILS % (MANUAL) 6 % (3-5); BASOPHILS % (MANUAL) 0 % (0-2); EOSINOPHILS % (MANUAL) 0 % (0-6); LYMPHOCYTES % (MANUAL) 4 % (13-45); MONOCYTES % (MANUAL) 3 % (3-13); SEGMENTED NEUTROPHILS % (MAN) 87 % (42-78); TOTAL CELLS COUNTED 100
[2017-12-04] MEDS: AMPICILLIN SODIUM/SULBACTAM NA 3 GM in NORMAL SALINE 100 ML IV SCH ×2 (05:27→17:05)
[2017-12-04] MEDS: DEXTROSE 5%-WATER 250 ML with PHENYLEPHRINE HCL 40 MG IV PRN ×6 (05:27→14:12)
[2017-12-04] MEDS: METRONIDAZOLE 500 MG/NS RTU 100 ML IV SCH ×3 (05:28→17:43)
[2017-12-04] MEDS: BENZONATATE 100 MG CAPSULE PO SCH ×2 (05:28→14:02)
[2017-12-04 05:34] LABS: POLYCHROMASIA SLIGHT; TOXIC GRANULATION SLIGHT; TOXIC VACUOLATION PRESENT
[2017-12-04 05:35] LABS: ANISOCYTOSIS SLIGHT; BURR CELLS SLIGHT; PLATELET COMMENT INCREASED; PLATELET LARGE PRESENT; POIKILOCYTOSIS SLIGHT; TARGET CELLS SLIGHT
[2017-12-04] MEDS ORDERED: FAMOTIDINE 20 MG TABLET PO SCH (06:00)
[2017-12-04] MEDS: PROPOFOL 100 ML IV PRN ×4 (07:37→21:11)
--- NOTE | 2017-12-04 08:01 | PDOC PROGRESS REPORT ---
Subjective Progress Note for:: 12/03/17 Subjective:: The patient was in the OR and I saw her in the ICU at 6:15 pm after surgery. She was not able to be extubated and became hypotensive requiring pressors. Hemoglobin 7.7- I ordered 2 units of PRBC. Discussed her care with Dr. Hannah, her surgeon. Surgery consult placed for Dr. Almanza for central line placement. IV NS wide open. Phenylephrine gtt to be titrated. Reason For Visit: HYPOKALEMIA,HYPONATREMIA,LEUKOCYTOSIS,THROMBYCYTOS Physical Exam Vital Signs: Temp Pulse Resp BP Pulse Ox 100.6 F H 65 16 106/66 100 12/04/17 05:37 12/04/17 00:52 12/04/17 00:52 12/04/17 00:52 12/04/17 04:20 Intake & Output 12/03/17 12/04/17 12/05/17 06:59 06:59 06:59 Intake Total 900 21916 Output Total 2915 Balance 900 7102 Weight 70.2 kg 78.3 kg Additional comments: Elderly female intubated. On propofol and Doyle-Synephrine drips. Opening eyes spontaneously. Lungs: Clear to auscultation bilaterally Cardiac: S1-S2 regular no murmurs heard no peripheral edema no calf tenderness Abdomen: Soft, midline surgical scar with dressing in place Skin: Warm and dry Results Laboratory Results: 12/04/17 04:35 12/04/17 04:35 12/03/17 12/03/17 12/03/17 10:02 10:02 17:36 WBC 27.2 H 36.6 H* RBC 3.10 L 2.73 L Hgb 8.9 L 7.7 L Hct 26.6 L 23.9 L MCV 86 88 MCH 28.7 28.2 MCHC 33.5 32.2 RDW 15.4 H 15.9 H Plt Count 1309 H* 1261 H* Seg Neutrophils % Not Reportable Lymphocytes % Not Reportable Monocytes % Not Reportable Eosinophils % Not Reportable Basophils % Not Reportable Absolute Neutrophils Not Reportable Absolute Lymphocytes Not Reportable Absolute Monocytes Not Reportable Absolute Eosinophils Not Reportable Absolute Basophils Not Reportable Carbonic Acid HCO3/H2CO3 Ratio ABG pH ABG pCO2 ABG pO2 ABG HCO3 ABG O2 Saturation ABG Base Excess FiO2 Sodium 139.5 Potassium 3.3 L Chloride 108 H Carbon Dioxide 18 L Anion Gap 14 BUN 5 L Creatinine 0.49 L Est GFR ( Amer) > 60 Est GFR (Non-Af Amer) > 60 Glucose 96 Lactic Acid Calcium 8.6 Phosphorus 2.3 L Magnesium 1.6 Total Bilirubin 0.4 AST 32 ALT 30 Alkaline Phosphatase 82 Total Protein 5.2 L Albumin 2.4 L Blood Type Antibody Screen 12/03/17 12/03/17 12/03/17 17:36 17:36 18:21 WBC RBC Hgb Hct MCV MCH MCHC RDW Plt Count Seg Neutrophils % Lymphocytes % Monocytes % Eosinophils % Basophils % Absolute Neutrophils Absolute Lymphocytes Absolute Monocytes Absolute Eosinophils Absolute Basophils Carbonic Acid 0.87 L HCO3/H2CO3 Ratio 17:1 ABG pH 7.33 L ABG pCO2 28.8 L ABG pO2 84.9 ABG HCO3 14.9 L ABG O2 Saturation 96.0 ABG Base Excess -9.9 FiO2 60% Sodium 140.6 Potassium 3.1 L Chloride 111 H Carbon Dioxide 19 L Anion Gap 11 BUN 5 L Creatinine 0.60 Est GFR ( Amer) > 60 Est GFR (Non-Af Amer) > 60 Glucose 116 H Lactic Acid Calcium 7.7 L Phosphorus Magnesium 1.4 L Total Bilirubin AST ALT Alkaline Phosphatase Total Protein Albumin Blood Type Antibody Screen 12/03/17 12/03/17 12/03/17 19:38 19:38 23:25 WBC 49.7 H* RBC 2.84 L Hgb 8.0 L Hct 24.6 L MCV 87 MCH 28.0 MCHC 32.4 RDW 16.1 H Plt Count 1597 H* Seg Neutrophils % Not Reportable Lymphocytes % Not Reportable Monocytes % Not Reportable Eosinophils % Not Reportable Basophils % Not Reportable Absolute Neutrophils Not Reportable Absolute Lymphocytes Not Reportable Absolute Monocytes Not Reportable Absolute Eosinophils Not Reportable Absolute Basophils Not Reportable Carbonic Acid HCO3/H2CO3 Ratio ABG pH ABG pCO2 ABG pO2 ABG HCO3 ABG O2 Saturation ABG Base Excess FiO2 Sodium Potassium Chloride Carbon Dioxide Anion Gap BUN Creatinine Est GFR ( Amer) Est GFR (Non-Af Amer) Glucose Lactic Acid 1.2 Calcium Phosphorus Magnesium Total Bilirubin AST ALT Alkaline Phosphatase Total Protein Albumin Blood Type A POSITIVE Antibody Screen NEGATIVE 12/04/17 12/04/17 12/04/17 04:35 04:35 04:35 WBC 41.3 H* RBC 3.90 Hgb 11.3 L D Hct 33.6 L MCV 86 MCH 28.9 MCHC 33.5 RDW 15.1 H Plt Count 1477 H* Seg Neutrophils % Not Reportable Lymphocytes % Not Reportable Monocytes % Not Reportable Eosinophils % Not Reportable Basophils % Not Reportable Absolute Neutrophils Not Reportable Absolute Lymphocytes Not Reportable Absolute Monocytes Not Reportable Absolute Eosinophils Not Reportable Absolute Basophils Not Reportable Carbonic Acid 0.76 L HCO3/H2CO3 Ratio 19:1 ABG pH 7.39 ABG pCO2 25.2 L ABG pO2 133.0 H ABG HCO3 14.8 L ABG O2 Saturation 98.7 H ABG Base Excess -8.3 FiO2 50% Sodium 137.9 Potassium 4.3 D Chloride 111 H Carbon Dioxide 17 L Anion Gap 10 BUN 7 Creatinine 0.81 Est GFR ( Amer) > 60 Est GFR (Non-Af Amer) > 60 Glucose 201 H Lactic Acid Calcium 7.6 L Phosphorus 4.2 Magnesium 1.9 Total Bilirubin 1.0 AST 171 H ALT 77 H Alkaline Phosphatase 69 Total Protein 4.7 L Albumin 2.2 L Blood Type Antibody Screen 12/03/17 12/03/17 12/04/17 23:25 23:25 03:30 Creatine Kinase 129 190 H CK-MB (CK-2) 6.90 H Troponin I 1.720 12/04/17 03:30 Creatine Kinase CK-MB (CK-2) 8.53 H Troponin I 2.310 Impressions: Abdomen/Pelvis CT 11/28/17 00:00 IMPRESSION: Diffuse pancreatitis with peripancreatic fat stranding and fluid along the left gutter. No pancreatic masses. Chest CT 11/28/17 00:00 IMPRESSION: Small left pleural effusion. Otherwise negative. Barium Enema 12/02/17 08:00 IMPRESSION: Markedly abnormal distal sigmoid colon with luminal narrowing, mucosal irregularity from diverticulosis and inflammation. There is a submucosal pocket of barium tracking along the distal sigmoid colon causing a double-lumen appearance. Unable to evaluate the colon more proximal to the splenic flexure. Patient was unable to tolerate the pressure on the barium per rectum. Assessment & Plan - Diagnosis (1) Colonic mass Is this a current diagnosis for this admission?: Yes (2) Acute pancreatitis Qualifiers: Pancreatitis type: other Acute pancreatitis complication: no infection or necrosis Qualified Code(s): K85.80 - Other acute pancreatitis without necrosis or infection Is this a current diagnosis for this admission?: Yes (3) Anemia Qualifiers: Anemia type: unspecified type Qualified Code(s): D64.9 - Anemia, unspecified Is this a current diagnosis for this admission?: Yes (4) Cough Is this a current diagnosis for this admission?: Yes (5) GI bleed Qualifiers: GI bleed type/associated pathology: melena Qualified Code(s): K92.1 - Melena Is this a current diagnosis for this admission?: Yes (6) HLD (hyperlipidemia) Is this a current diagnosis for this admission?: Yes (7) Hypokalemia Is this a current diagnosis for this admission?: Yes (8) Hyponatremia Is this a current diagnosis for this admission?: Yes (9) Hypothyroid Qualifiers: Hypothyroidism type: acquired Qualified Code(s): E03.9 - Hypothyroidism, unspecified Is this a current diagnosis for this admission?: Yes (10) Neutrophilic leukocytosis Is this a current diagnosis for this admission?: Yes (11) Symptomatic anemia Is this a current diagnosis for this admission?: Yes (12) Thrombocytosis Is this a current diagnosis for this admission?: Yes - Time Total Critical Time (Minutes): 45 - Plan Summary Plan Summary: Continue to manage on vent. Packed red blood cells ordered. Continue antibiotics. Follow Up on cultures. Echocardiogram ordered to evaluate LV function. Target MAP 65
--- NOTE | 2017-12-04 08:15 | RADIOLOGY REPORT (SQ) ---
EXAM DESCRIPTION: CHEST SINGLE VIEW COMPLETED DATE/TIME: 12/04/2017 6:51 am REASON FOR STUDY: resp failure COMPARISON: Chest films 12/03/2017, 11/18/2017 CT chest 11/28/2017 EXAM PARAMETERS: NUMBER OF VIEWS: One view. TECHNIQUE: Single frontal radiographic view of the chest acquired. RADIATION DOSE: NA LIMITATIONS: None. FINDINGS: LUNGS AND PLEURA: Patchy airspace disease throughout the left lower lobe unchanged compare d to 12/03/2017. Right lung grossly clear. No pneumothorax. No gross pleural effusions. MEDIASTINUM AND HILAR STRUCTURES: No masses. Contour normal. HEART AND VASCULAR STRUCTURES: Borderline cardiomegaly BONES: No acute findings. HARDWARE: Endotracheal tube tip 6 cm above the maico. Right subclavian line tip right atrium. Naso gastric tube tip and side port in the stomach. OTHER: No other significant finding. IMPRESSION: Persistent left lower lobe airspace disease Tubes and lines in good positioning TECHNICAL DOCUMENTATION: JOB ID: [id number] [employer]- All Rights Reserved
[2017-12-04] MEDS ORDERED: NORMAL SALINE 1000 ML 1,000 ML IV PRN (08:54)
--- NOTE | 2017-12-04 09:21 | EKG REPORT ---
SEVERITY:- BORDERLINE ECG - SINUS RHYTHM LOW VOLTAGE THROUGHOUT BORDERLINE T ABNORMALITIES, DIFFUSE LEADS : Confirmed by: Safia Melendez 04-Dec-2017 09:20:22
--- NOTE | 2017-12-04 09:21 | EKG REPORT ---
SEVERITY:- ABNORMAL ECG - SINUS RHYTHM VENTRICULAR BIGEMINY BORDERLINE T ABNORMALITIES, ANT-LAT LEADS : Confirmed by: Safia Melendez 04-Dec-2017 09:20:48
--- NOTE | 2017-12-04 09:21 | EKG REPORT ---
SEVERITY:- BORDERLINE ECG - SINUS RHYTHM BORDERLINE T ABNORMALITIES, INFERIOR LEADS : Confirmed by: Safia Melendez 04-Dec-2017 09:20:30
[2017-12-04] MEDS ORDERED: ENOXAPARIN SODIUM INJ 40 MG/0.4 ML DISP.SYRIN SUBCUT SCH (10:00)
[2017-12-04 11:07] LABS: PATH REVIEW PATHOLOGIST REVIEWED
[2017-12-04 11:39] LABS: HEMATOCRIT 32.8 % (36.0-47.0); HEMOGLOBIN 10.8 g/dL (12.0-15.5); MEAN CORPUSCULAR HEMOGLOBIN 28.5 pg (27.0-33.4); MEAN CORPUSCULAR HGB CONC 32.8 g/dL (32.0-36.0); MEAN CORPUSCULAR VOLUME 87 fl (80-97); RED BLOOD COUNT 3.78 10^6/uL (3.72-5.28); RED CELL DISTRIBUTION WIDTH 15.5 % (11.5-14.0)
[2017-12-04 11:40] LABS: INTERNATIONAL RATION (INR) 1.62; PROTHROMBIN TIME 20.2 SEC (11.4-15.4)
[2017-12-04 11:41] LABS: PARTIAL THROMBOPLASTIN TIME 42.2 SEC (23.5-35.8)
[2017-12-04 11:51] LABS: CREATINE KINASE 313 U/L (30-135)
[2017-12-04 11:59] LABS: CREATINE KINASE MB 7.33 ng/mL (<4.55); TROPONIN I 2.26 ng/mL
[2017-12-04 12:14] LABS: WHITE BLOOD COUNT 33.2 10^3/uL (4.0-10.5)
[2017-12-04 12:15] LABS: PLATELET COUNT 1415 10^3/uL (150-450)
[2017-12-04] MEDS: FAMOTIDINE INJ/PF 20 MG/2 ML SDV IV SCH (12:41)
--- NOTE | 2017-12-04 13:03 | PDOC CONSULTATION ---
Consultation Consult Date: 12/03/17 Attending physician:: TOÑITO SIMENTAL Consult reason:: septic shock History of Present Illness Admission Date/PCP: 11/26/17 12:42 History of Present Illness: -year-old female with multiple medical problems status post surgery for acute pancreatitis,colon obstruction diverticulitis. Patient has profound elevation in white count and as well as severe thrombocytosis. In addition to this is elevated cardiac enzymes and radiographically she has a left lower lobe infiltrates. She is currently intubated and sedated Past Medical History Cardiac Medical History: Reports: None, Hyperlipidema, Hypertension Pulmonary Medical History: Reports: None EENT Medical History: Reports: None Neurological Medical History: Denies: Seizures GI Medical History: Reports: Diverticulitis Hematology: Reports: None Past Surgical History Past Surgical History: Reports: Hysterectomy, Other - colonoscopy 8 years ago Social History Information Source: ON LICENSE OF [facility] Records Lives with: Spouse/Significant other Smoking Status: Never Smoker Frequency of Alcohol Use: Rare Hx Recreational Drug Use: No Drugs: None Hx Prescription Drug Abuse: No - Advance Directive Resuscitation Status: Full Code Family History Family History: Hyperlipidemia, Malignancy Parental Family History Reviewed: No Children Family History Reviewed: No Sibling(s) Family History Reviewed.: No Medication/Allergy Home Medications: Fenofibric Acid [Fibricor] 105 mg PO DAILY 11/26/17 Levothyroxine Sodium [Synthroid] 0.125 mg PO DAILY 11/26/17 Losartan/Hydrochlorothiazide [Losartan-Hctz 100-25 mg Tab] 1 tab PO DAILY Allergies/Adverse Reactions: Acidzrn-Fzk-Ilh Reductase Inhibitor Allergy (Verified 11/26/17 11:07) Sulfa (Sulfonamide Antibiotics) Allergy (Verified 11/26/17 11:07) Review of Systems ROS unobtainable: Due to endotracheal tube Physical Exam Vital Signs: Temp Pulse Resp BP Pulse Ox 100.2 F 67 16 103/63 100 12/04/17 08:00 12/04/17 08:00 12/04/17 08:00 12/04/17 08:00 12/04/17 08:00 Intake & Output 12/03/17 12/04/17 12/05/17 06:59 06:59 06:59 Intake Total 900 15545 Output Total 2915 60 Balance 900 7102 -60 Weight 70.2 kg 78.3 kg General appearance: PRESENT: no acute distress, disheveled, obese, well- developed. ABSENT: cooperative, mild distress, morbidly obese, severe distress , thin Head exam: PRESENT: atraumatic, normocephalic Eye exam: PRESENT: conjunctiva pale. ABSENT: conjunctival injection, conjunctiva pink, nystagmus, periorbital swelling, scleral icterus Mouth exam: PRESENT: dry mucosa, neck supple, tongue midline, other - ET tube in place. ABSENT: laceration, moist Neck exam: ABSENT: carotid bruit, JVD, lymphadenopathy, thyromegaly, tracheal deviation, tracheostomy Respiratory exam: PRESENT: crackles, decreased breath sounds, prolonged expiratory phas, rhonchi, symmetrical, unlabored, wheezes. ABSENT: accessory muscle use, chest wall tenderness, clear to auscultation mane, rales, retraction , stridor, tachypnea Cardiovascular exam: PRESENT: RRR, +S1, +S2 Pulses: PRESENT: normal radial pulses GI/Abdominal exam: PRESENT: distended, soft, other - midline dressing LLQ ostomy. ABSENT: hernia, hyperactive bowel sounds, hypoactive bowel sounds, mass , normal bowel sounds, organolmegaly, tenderness Gentrourinary exam: PRESENT: indwelling catheter Extremities exam: ABSENT: clubbing, joint swelling Musculoskeletal exam: ABSENT: ambulatory, deformity, dislocation Neurological exam: ABSENT: alert, awake Skin exam: PRESENT: dry, warm Results Laboratory Results: 12/04/17 04:35 12/04/17 04:35 12/03/17 12/03/17 12/03/17 10:02 10:02 17:36 WBC 27.2 H 36.6 H* RBC 3.10 L 2.73 L Hgb 8.9 L 7.7 L Hct 26.6 L 23.9 L MCV 86 88 MCH 28.7 28.2 MCHC 33.5 32.2 RDW 15.4 H 15.9 H Plt Count 1309 H* 1261 H* Seg Neutrophils % Not Reportable Lymphocytes % Not Reportable Monocytes % Not Reportable Eosinophils % Not Reportable Basophils % Not Reportable Absolute Neutrophils Not Reportable Absolute Lymphocytes Not Reportable Absolute Monocytes Not Reportable Absolute Eosinophils Not Reportable Absolute Basophils Not Reportable Carbonic Acid HCO3/H2CO3 Ratio ABG pH ABG pCO2 ABG pO2 ABG HCO3 ABG O2 Saturation ABG Base Excess FiO2 Sodium 139.5 Potassium 3.3 L Chloride 108 H Carbon Dioxide 18 L Anion Gap 14 BUN 5 L Creatinine 0.49 L Est GFR ( Amer) > 60 Est GFR (Non-Af Amer) > 60 Glucose 96 Lactic Acid Calcium 8.6 Phosphorus 2.3 L Magnesium 1.6 Total Bilirubin 0.4 AST 32 ALT 30 Alkaline Phosphatase 82 Total Protein 5.2 L Albumin 2.4 L Blood Type Antibody Screen 12/03/17 12/03/17 12/03/17 17:36 17:36 18:21 WBC RBC Hgb Hct MCV MCH MCHC RDW Plt Count Seg Neutrophils % Lymphocytes % Monocytes % Eosinophils % Basophils % Absolute Neutrophils Absolute Lymphocytes Absolute Monocytes Absolute Eosinophils Absolute Basophils Carbonic Acid 0.87 L HCO3/H2CO3 Ratio 17:1 ABG pH 7.33 L ABG pCO2 28.8 L ABG pO2 84.9 ABG HCO3 14.9 L ABG O2 Saturation 96.0 ABG Base Excess -9.9 FiO2 60% Sodium 140.6 Potassium 3.1 L Chloride 111 H Carbon Dioxide 19 L Anion Gap 11 BUN 5 L Creatinine 0.60 Est GFR ( Amer) > 60 Est GFR (Non-Af Amer) > 60 Glucose 116 H Lactic Acid Calcium 7.7 L Phosphorus Magnesium 1.4 L Total Bilirubin AST ALT Alkaline Phosphatase Total Protein Albumin Blood Type Antibody Screen 12/03/17 12/03/17 12/03/17 19:38 19:38 23:25 WBC 49.7 H* RBC 2.84 L Hgb 8.0 L Hct 24.6 L MCV 87 MCH 28.0 MCHC 32.4 RDW 16.1 H Plt Count 1597 H* Seg Neutrophils % Not Reportable Lymphocytes % Not Reportable Monocytes % Not Reportable Eosinophils % Not Reportable Basophils % Not Reportable Absolute Neutrophils Not Reportable Absolute Lymphocytes Not Reportable Absolute Monocytes Not Reportable Absolute Eosinophils Not Reportable Absolute Basophils Not Reportable Carbonic Acid HCO3/H2CO3 Ratio ABG pH ABG pCO2 ABG pO2 ABG HCO3 ABG O2 Saturation ABG Base Excess FiO2 Sodium Potassium Chloride Carbon Dioxide Anion Gap BUN Creatinine Est GFR ( Amer) Est GFR (Non-Af Amer) Glucose Lactic Acid 1.2 Calcium Phosphorus Magnesium Total Bilirubin AST ALT Alkaline Phosphatase Total Protein Albumin Blood Type A POSITIVE Antibody Screen NEGATIVE 12/04/17 12/04/17 12/04/17 04:35 04:35 04:35 WBC 41.3 H* RBC 3.90 Hgb 11.3 L D Hct 33.6 L MCV 86 MCH 28.9 MCHC 33.5 RDW 15.1 H Plt Count 1477 H* Seg Neutrophils % Not Reportable Lymphocytes % Not Reportable Monocytes % Not Reportable Eosinophils % Not Reportable Basophils % Not Reportable Absolute Neutrophils Not Reportable Absolute Lymphocytes Not Reportable Absolute Monocytes Not Reportable Absolute Eosinophils Not Reportable Absolute Basophils Not Reportable Carbonic Acid 0.76 L HCO3/H2CO3 Ratio 19:1 ABG pH 7.39 ABG pCO2 25.2 L ABG pO2 133.0 H ABG HCO3 14.8 L ABG O2 Saturation 98.7 H ABG Base Excess -8.3 FiO2 50% Sodium 137.9 Potassium 4.3 D Chloride 111 H Carbon Dioxide 17 L Anion Gap 10 BUN 7 Creatinine 0.81 Est GFR ( Amer) > 60 Est GFR (Non-Af Amer) > 60 Glucose 201 H Lactic Acid Calcium 7.6 L Phosphorus 4.2 Magnesium 1.9 Total Bilirubin 1.0 AST 171 H ALT 77 H Alkaline Phosphatase 69 Total Protein 4.7 L Albumin 2.2 L Blood Type Antibody Screen 12/03/17 12/03/17 12/04/17 23:25 23:25 03:30 Creatine Kinase 129 190 H CK-MB (CK-2) 6.90 H Troponin I 1.720 NT-Pro-B Natriuret Pep 12/04/17 12/04/17 03:30 04:35 Creatine Kinase CK-MB (CK-2) 8.53 H Troponin I 2.310 NT-Pro-B Natriuret Pep 8590 H Impressions: Abdomen/Pelvis CT 11/28/17 00:00 IMPRESSION: Diffuse pancreatitis with peripancreatic fat stranding and fluid along the left gutter. No pancreatic masses. Chest CT 11/28/17 00:00 IMPRESSION: Small left pleural effusion. Otherwise negative. Barium Enema 12/02/17 08:00 IMPRESSION: Markedly abnormal distal sigmoid colon with luminal narrowing, mucosal irregularity from diverticulosis and inflammation. There is a submucosal pocket of barium tracking along the distal sigmoid colon causing a double-lumen appearance. Unable to evaluate the colon more proximal to the splenic flexure. Patient was unable to tolerate the pressure on the barium per rectum. Chest X-Ray 12/04/17 06:00 IMPRESSION: Persistent left lower lobe airspace disease Tubes and lines in good positioning Assessment & Plan - Diagnosis (1) Septic shock Is this a current diagnosis for this admission?: Yes Plan: 3 pressors (2) Pneumonia Is this a current diagnosis for this admission?: Yes Plan: leucocytosis;3 abx (3) Acute pancreatitis Qualifiers: Pancreatitis type: other Acute pancreatitis complication: no infection or necrosis Qualified Code(s): K85.80 - Other acute pancreatitis without necrosis or infection Is this a current diagnosis for this admission?: Yes Plan: ? drug related (4) Anemia Qualifiers: Anemia type: unspecified type Qualified Code(s): D64.9 - Anemia, unspecified Is this a current diagnosis for this admission?: Yes (5) Neutrophilic leukocytosis Is this a current diagnosis for this admission?: Yes (6) Thrombocytosis Is this a current diagnosis for this admission?: Yes - Time Total Critical Time (Minutes): 65
--- NOTE | 2017-12-04 13:08 | PDOC PROGRESS REPORT ---
Subjective Progress Note for:: 12/04/17 Subjective:: intubated Reason For Visit: HYPOKALEMIA,HYPONATREMIA,LEUKOCYTOSIS,THROMBYCYTOS Physical Exam Vital Signs: Temp Pulse Resp BP Pulse Ox 100.2 F 67 16 103/63 100 12/04/17 08:00 12/04/17 08:00 12/04/17 08:00 12/04/17 08:00 12/04/17 08:00 Intake & Output 12/03/17 12/04/17 12/05/17 06:59 06:59 06:59 Intake Total 900 54140 Output Total 2915 60 Balance 900 7102 -60 Weight 70.2 kg 78.3 kg General appearance: PRESENT: no acute distress, disheveled, obese, well- developed. ABSENT: cooperative, mild distress, morbidly obese, severe distress , thin Head exam: PRESENT: atraumatic, normocephalic Eye exam: PRESENT: conjunctiva pale. ABSENT: conjunctival injection, conjunctiva pink, EOMI, nystagmus, periorbital swelling, scleral icterus Mouth exam: PRESENT: dry mucosa, neck supple, tongue midline, other - ET tube. ABSENT: laceration, moist Neck exam: ABSENT: carotid bruit, JVD, lymphadenopathy, thyromegaly, tracheal deviation, tracheostomy Respiratory exam: PRESENT: crackles, decreased breath sounds, prolonged expiratory phas, rhonchi, symmetrical, unlabored, wheezes. ABSENT: accessory muscle use, chest wall tenderness, clear to auscultation mane, rales, retraction , stridor, tachypnea Cardiovascular exam: PRESENT: RRR, +S1, +S2 Pulses: PRESENT: normal radial pulses GI/Abdominal exam: PRESENT: other - s/p surgery Gentrourinary exam: PRESENT: indwelling catheter Extremities exam: ABSENT: clubbing, joint swelling Musculoskeletal exam: ABSENT: ambulatory, deformity, dislocation, full ROM Neurological exam: ABSENT: alert, awake Skin exam: PRESENT: dry, warm Results Laboratory Results: 12/04/17 04:35 12/04/17 04:35 12/03/17 12/03/17 12/03/17 10:02 10:02 17:36 WBC 27.2 H 36.6 H* RBC 3.10 L 2.73 L Hgb 8.9 L 7.7 L Hct 26.6 L 23.9 L MCV 86 88 MCH 28.7 28.2 MCHC 33.5 32.2 RDW 15.4 H 15.9 H Plt Count 1309 H* 1261 H* Seg Neutrophils % Not Reportable Lymphocytes % Not Reportable Monocytes % Not Reportable Eosinophils % Not Reportable Basophils % Not Reportable Absolute Neutrophils Not Reportable Absolute Lymphocytes Not Reportable Absolute Monocytes Not Reportable Absolute Eosinophils Not Reportable Absolute Basophils Not Reportable Carbonic Acid HCO3/H2CO3 Ratio ABG pH ABG pCO2 ABG pO2 ABG HCO3 ABG O2 Saturation ABG Base Excess FiO2 Sodium 139.5 Potassium 3.3 L Chloride 108 H Carbon Dioxide 18 L Anion Gap 14 BUN 5 L Creatinine 0.49 L Est GFR ( Amer) > 60 Est GFR (Non-Af Amer) > 60 Glucose 96 Lactic Acid Calcium 8.6 Phosphorus 2.3 L Magnesium 1.6 Total Bilirubin 0.4 AST 32 ALT 30 Alkaline Phosphatase 82 Total Protein 5.2 L Albumin 2.4 L Blood Type Antibody Screen 12/03/17 12/03/17 12/03/17 17:36 17:36 18:21 WBC RBC Hgb Hct MCV MCH MCHC RDW Plt Count Seg Neutrophils % Lymphocytes % Monocytes % Eosinophils % Basophils % Absolute Neutrophils Absolute Lymphocytes Absolute Monocytes Absolute Eosinophils Absolute Basophils Carbonic Acid 0.87 L HCO3/H2CO3 Ratio 17:1 ABG pH 7.33 L ABG pCO2 28.8 L ABG pO2 84.9 ABG HCO3 14.9 L ABG O2 Saturation 96.0 ABG Base Excess -9.9 FiO2 60% Sodium 140.6 Potassium 3.1 L Chloride 111 H Carbon Dioxide 19 L Anion Gap 11 BUN 5 L Creatinine 0.60 Est GFR ( Amer) > 60 Est GFR (Non-Af Amer) > 60 Glucose 116 H Lactic Acid Calcium 7.7 L Phosphorus Magnesium 1.4 L Total Bilirubin AST ALT Alkaline Phosphatase Total Protein Albumin Blood Type Antibody Screen 12/03/17 12/03/17 12/03/17 19:38 19:38 23:25 WBC 49.7 H* RBC 2.84 L Hgb 8.0 L Hct 24.6 L MCV 87 MCH 28.0 MCHC 32.4 RDW 16.1 H Plt Count 1597 H* Seg Neutrophils % Not Reportable Lymphocytes % Not Reportable Monocytes % Not Reportable Eosinophils % Not Reportable Basophils % Not Reportable Absolute Neutrophils Not Reportable Absolute Lymphocytes Not Reportable Absolute Monocytes Not Reportable Absolute Eosinophils Not Reportable Absolute Basophils Not Reportable Carbonic Acid HCO3/H2CO3 Ratio ABG pH ABG pCO2 ABG pO2 ABG HCO3 ABG O2 Saturation ABG Base Excess FiO2 Sodium Potassium Chloride Carbon Dioxide Anion Gap BUN Creatinine Est GFR ( Amer) Est GFR (Non-Af Amer) Glucose Lactic Acid 1.2 Calcium Phosphorus Magnesium Total Bilirubin AST ALT Alkaline Phosphatase Total Protein Albumin Blood Type A POSITIVE Antibody Screen NEGATIVE 12/04/17 12/04/17 12/04/17 04:35 04:35 04:35 WBC 41.3 H* RBC 3.90 Hgb 11.3 L D Hct 33.6 L MCV 86 MCH 28.9 MCHC 33.5 RDW 15.1 H Plt Count 1477 H* Seg Neutrophils % Not Reportable Lymphocytes % Not Reportable Monocytes % Not Reportable Eosinophils % Not Reportable Basophils % Not Reportable Absolute Neutrophils Not Reportable Absolute Lymphocytes Not Reportable Absolute Monocytes Not Reportable Absolute Eosinophils Not Reportable Absolute Basophils Not Reportable Carbonic Acid 0.76 L HCO3/H2CO3 Ratio 19:1 ABG pH 7.39 ABG pCO2 25.2 L ABG pO2 133.0 H ABG HCO3 14.8 L ABG O2 Saturation 98.7 H ABG Base Excess -8.3 FiO2 50% Sodium 137.9 Potassium 4.3 D Chloride 111 H Carbon Dioxide 17 L Anion Gap 10 BUN 7 Creatinine 0.81 Est GFR ( Amer) > 60 Est GFR (Non-Af Amer) > 60 Glucose 201 H Lactic Acid Calcium 7.6 L Phosphorus 4.2 Magnesium 1.9 Total Bilirubin 1.0 AST 171 H ALT 77 H Alkaline Phosphatase 69 Total Protein 4.7 L Albumin 2.2 L Blood Type Antibody Screen 12/03/17 12/03/17 12/04/17 23:25 23:25 03:30 Creatine Kinase 129 190 H CK-MB (CK-2) 6.90 H Troponin I 1.720 NT-Pro-B Natriuret Pep 12/04/17 12/04/17 03:30 04:35 Creatine Kinase CK-MB (CK-2) 8.53 H Troponin I 2.310 NT-Pro-B Natriuret Pep 8590 H Impressions: Abdomen/Pelvis CT 11/28/17 00:00 IMPRESSION: Diffuse pancreatitis with peripancreatic fat stranding and fluid along the left gutter. No pancreatic masses. Chest CT 11/28/17 00:00 IMPRESSION: Small left pleural effusion. Otherwise negative. Barium Enema 12/02/17 08:00 IMPRESSION: Markedly abnormal distal sigmoid colon with luminal narrowing, mucosal irregularity from diverticulosis and inflammation. There is a submucosal pocket of barium tracking along the distal sigmoid colon causing a double-lumen appearance. Unable to evaluate the colon more proximal to the splenic flexure. Patient was unable to tolerate the pressure on the barium per rectum. Chest X-Ray 12/04/17 06:00 IMPRESSION: Persistent left lower lobe airspace disease Tubes and lines in good positioning Assessment & Plan - Diagnosis (1) Cardiac complications Is this a current diagnosis for this admission?: Yes Plan: elevated enz abn echo (2) Acute pancreatitis Qualifiers: Pancreatitis type: other Acute pancreatitis complication: no infection or necrosis Qualified Code(s): K85.80 - Other acute pancreatitis without necrosis or infection Is this a current diagnosis for this admission?: Yes Plan: ? drug related (3) Anemia Qualifiers: Anemia type: unspecified type Qualified Code(s): D64.9 - Anemia, unspecified Is this a current diagnosis for this admission?: Yes (4) Neutrophilic leukocytosis Is this a current diagnosis for this admission?: Yes Plan: unchanged (5) Pneumonia Is this a current diagnosis for this admission?: Yes Plan: no + cultures thus far (6) Septic shock Is this a current diagnosis for this admission?: Yes (7) Thrombocytosis Is this a current diagnosis for this admission?: Yes Plan: as per hematology - Time Total Critical Time (Minutes): 45
--- NOTE | 2017-12-04 14:00 | PDOC PROGRESS REPORT ---
Subjective Progress Note for:: 12/04/17 Subjective:: Pt had surgery done, was a complicated procedure w/ diffuse inflammation noted, ascitis noted, cytology and path from surgery pending, pt now in ICU, ventilated and neosyn, nursing trying to wean, troponin also elevated so appears pt had NSTEMI, pt had echo and per tech, apex w/ poor motion, extremities cold and noted anasarca Reason For Visit: HYPOKALEMIA,HYPONATREMIA,LEUKOCYTOSIS,THROMBYCYTOS Physical Exam Vital Signs: Temp Pulse Resp BP Pulse Ox 100.2 F 68 18 94/60 L 99 12/04/17 12:00 12/04/17 12:00 12/04/17 12:00 12/04/17 12:00 12/04/17 12:00 Intake & Output 12/03/17 12/04/17 12/05/17 06:59 06:59 06:59 Intake Total 900 67397 Output Total 2915 150 Balance 900 7102 -150 Weight 70.2 kg 78.3 kg General appearance: PRESENT: no acute distress, other - intubated, sedated Head exam: PRESENT: atraumatic Mouth exam: PRESENT: dry mucosa Respiratory exam: PRESENT: clear to auscultation mane. ABSENT: rales, rhonchi, wheezes Cardiovascular exam: PRESENT: RRR. ABSENT: diastolic murmur, rubs, systolic murmur GI/Abdominal exam: PRESENT: normal bowel sounds, soft. ABSENT: distended, guarding, mass, organolmegaly, rebound, tenderness Rectal exam: PRESENT: deferred Results Laboratory Results: 12/04/17 11:20 12/04/17 11:20 12/03/17 12/03/17 12/03/17 17:36 17:36 17:36 WBC 36.6 H* RBC 2.73 L Hgb 7.7 L Hct 23.9 L MCV 88 MCH 28.2 MCHC 32.2 RDW 15.9 H Plt Count 1261 H* Seg Neutrophils % Not Reportable Lymphocytes % Not Reportable Monocytes % Not Reportable Eosinophils % Not Reportable Basophils % Not Reportable Absolute Neutrophils Not Reportable Absolute Lymphocytes Not Reportable Absolute Monocytes Not Reportable Absolute Eosinophils Not Reportable Absolute Basophils Not Reportable Carbonic Acid HCO3/H2CO3 Ratio ABG pH ABG pCO2 ABG pO2 ABG HCO3 ABG O2 Saturation ABG Base Excess FiO2 Sodium 140.6 Potassium 3.1 L Chloride 111 H Carbon Dioxide 19 L Anion Gap 11 BUN 5 L Creatinine 0.60 Est GFR ( Amer) > 60 Est GFR (Non-Af Amer) > 60 Glucose 116 H Lactic Acid Calcium 7.7 L Phosphorus Magnesium 1.4 L Total Bilirubin AST ALT Alkaline Phosphatase Total Protein Albumin Blood Type Antibody Screen 12/03/17 12/03/17 12/03/17 18:21 19:38 19:38 WBC 49.7 H* RBC 2.84 L Hgb 8.0 L Hct 24.6 L MCV 87 MCH 28.0 MCHC 32.4 RDW 16.1 H Plt Count 1597 H* Seg Neutrophils % Not Reportable Lymphocytes % Not Reportable Monocytes % Not Reportable Eosinophils % Not Reportable Basophils % Not Reportable Absolute Neutrophils Not Reportable Absolute Lymphocytes Not Reportable Absolute Monocytes Not Reportable Absolute Eosinophils Not Reportable Absolute Basophils Not Reportable Carbonic Acid 0.87 L HCO3/H2CO3 Ratio 17:1 ABG pH 7.33 L ABG pCO2 28.8 L ABG pO2 84.9 ABG HCO3 14.9 L ABG O2 Saturation 96.0 ABG Base Excess -9.9 FiO2 60% Sodium Potassium Chloride Carbon Dioxide Anion Gap BUN Creatinine Est GFR ( Amer) Est GFR (Non-Af Amer) Glucose Lactic Acid Calcium Phosphorus Magnesium Total Bilirubin AST ALT Alkaline Phosphatase Total Protein Albumin Blood Type A POSITIVE Antibody Screen NEGATIVE 12/03/17 12/04/17 12/04/17 23:25 04:35 04:35 WBC RBC Hgb Hct MCV MCH MCHC RDW Plt Count Seg Neutrophils % Lymphocytes % Monocytes % Eosinophils % Basophils % Absolute Neutrophils Absolute Lymphocytes Absolute Monocytes Absolute Eosinophils Absolute Basophils Carbonic Acid 0.76 L HCO3/H2CO3 Ratio 19:1 ABG pH 7.39 ABG pCO2 25.2 L ABG pO2 133.0 H ABG HCO3 14.8 L ABG O2 Saturation 98.7 H ABG Base Excess -8.3 FiO2 50% Sodium 137.9 Potassium 4.3 D Chloride 111 H Carbon Dioxide 17 L Anion Gap 10 BUN 7 Creatinine 0.81 Est GFR ( Amer) > 60 Est GFR (Non-Af Amer) > 60 Glucose 201 H Lactic Acid 1.2 Calcium 7.6 L Phosphorus 4.2 Magnesium 1.9 Total Bilirubin 1.0 AST 171 H ALT 77 H Alkaline Phosphatase 69 Total Protein 4.7 L Albumin 2.2 L Blood Type Antibody Screen 12/04/17 12/04/17 12/04/17 04:35 11:20 11:20 WBC 41.3 H* 33.2 H* RBC 3.90 3.78 Hgb 11.3 L D 10.8 L Hct 33.6 L 32.8 L MCV 86 87 MCH 28.9 28.5 MCHC 33.5 32.8 RDW 15.1 H 15.5 H Plt Count 1477 H* 1415 H* Seg Neutrophils % Not Reportable Lymphocytes % Not Reportable Monocytes % Not Reportable Eosinophils % Not Reportable Basophils % Not Reportable Absolute Neutrophils Not Reportable Absolute Lymphocytes Not Reportable Absolute Monocytes Not Reportable Absolute Eosinophils Not Reportable Absolute Basophils Not Reportable Carbonic Acid HCO3/H2CO3 Ratio ABG pH ABG pCO2 ABG pO2 ABG HCO3 ABG O2 Saturation ABG Base Excess FiO2 Sodium Potassium Chloride Carbon Dioxide Anion Gap BUN Creatinine 0.83 Est GFR ( Amer) > 60 Est GFR (Non-Af Amer) > 60 Glucose Lactic Acid Calcium Phosphorus Magnesium Total Bilirubin AST ALT Alkaline Phosphatase Total Protein Albumin Blood Type Antibody Screen 12/01/17 09:25 Stool - Stool - Final 12/01/17 09:25 Stool - Stool Stool Culture - Final NO SALMONELLA, SHIGELLA, CAMPYLOBACTER, OR E.COLI 0157 RECOVERED. NEGATIVE FOR SHIGA TOXINS 1&2. 12/03/17 12/03/17 12/04/17 23:25 23:25 03:30 Creatine Kinase 129 190 H CK-MB (CK-2) 6.90 H Troponin I 1.720 NT-Pro-B Natriuret Pep 12/04/17 12/04/17 12/04/17 03:30 04:35 11:20 Creatine Kinase 313 H CK-MB (CK-2) 8.53 H Troponin I 2.310 NT-Pro-B Natriuret Pep 8590 H 12/04/17 11:20 Creatine Kinase CK-MB (CK-2) 7.33 H Troponin I 2.260 NT-Pro-B Natriuret Pep Impressions: Abdomen/Pelvis CT 11/28/17 00:00 IMPRESSION: Diffuse pancreatitis with peripancreatic fat stranding and fluid along the left gutter. No pancreatic masses. Chest CT 12/30/17 00:00 IMPRESSION: Small left pleural effusion. Otherwise negative. Barium Enema 12/02/17 08:00 IMPRESSION: Markedly abnormal distal sigmoid colon with luminal narrowing, mucosal irregularity from diverticulosis and inflammation. There is a submucosal pocket of barium tracking along the distal sigmoid colon causing a double-lumen appearance. Unable to evaluate the colon more proximal to the splenic flexure. Patient was unable to tolerate the pressure on the barium per rectum. Chest X-Ray 12/04/17 06:00 IMPRESSION: Persistent left lower lobe airspace disease Tubes and lines in good positioning Status: Image reviewed by me Assessment & Plan - Diagnosis (1) Neutrophilic leukocytosis Is this a current diagnosis for this admission?: Yes Plan: Reactive 2nd to abd processes of both diverticulitis and pancreatitis, should improve over time, awaiting myeloproliferative w/u (2) Thrombocytosis Is this a current diagnosis for this admission?: Yes Plan: reactive as above, w/u pending as above (3) Symptomatic anemia Is this a current diagnosis for this admission?: Yes Plan: 2nd to bleeding from colon, received more blood post surgery, hb 10 range now, cont to monitor (4) GI bleed Qualifiers: GI bleed type/associated pathology: melena Qualified Code(s): K92.1 - Melena Is this a current diagnosis for this admission?: Yes Plan: 2nd diverticulitis, surgery completed, pt being monitored closely (5) Acute pancreatitis Qualifiers: Pancreatitis type: other Acute pancreatitis complication: no infection or necrosis Qualified Code(s): K85.80 - Other acute pancreatitis without necrosis or infection Is this a current diagnosis for this admission?: Yes Plan: improved, but this also complicated surgery - Time Time Spent with patient: 35 or more minutes Total Critical Time (Minutes): 45 - Inpatient Certification Based on my medical assessment, after consideration of the patient's comorbidities, presenting symptoms, or acuity I expect that the services needed warrant INPATIENT care.: Yes I certify that my determination is in accordance with my understanding of Medicare's requirements for reasonable and necessary INPATIENT services [42 CFR 412.3e].: Yes Medical Necessity: Need For Continuous Telemetry Monitoring, Risk of Complication if Not Cared For in Hospital
[2017-12-04] MEDS: FENOFIBRATE NANOCRYSTALLIZED 48 MG TABLET PO SCH (14:02)
[2017-12-04] MEDS ORDERED: DEXTROSE 5%-WATER 250 ML with VASOPRESSIN 100 UNIT IV PRN ×2 (15:44)
[2017-12-04] MEDS ORDERED: VASOPRESSIN INJ 20 UNIT/1 ML VIAL ONE (15:44)
--- NOTE | 2017-12-04 16:24 | XCELERA REPORT ---
[address] [address] Transthoracic Echocardiogram Report Name: JENNIFER ZAMORA Age: 72 yrs Gender: Female : 1945 Patient Status: Inpatient Patient Location: ICU^2^A Study Date: 12/04/2017 09:16 AM Height: 61 in Weight: 172 lb BSA: 1.8 m2 Procedure: A two-dimensional transthoracic echocardiogram with color flow and Doppler was performed. The study was technically difficult with many images being suboptimal in quality. Reason For Study: Elevated Troponin, r/o RWMA History: Elevated Troponin, r/o RWMA. Ordering Physician: TOÑITO SIMENTAL Performed By: Moriah Lawson Interpretation Summary The left ventricle is borderline dilated. There is normal left ventricular wall thickness. LV EF is 20% Left ventricular systolic function is severely reduced. LV diastolic function not assessed. The LV apex is akinetic.The rest of the LV whiteside are severely hypokinetic. There is no thrombus. The right ventricle is mildly dilated. The right ventricle is not well visualized secondary to technical limitations The right atrium is normal. The left atrium is mildly dilated. There is no evidence of mitral valve prolapse. There is no vegetation seen on the mitral valve. There is no mitral valve stenosis. There is a mild amount of mitral regurgitation There is no aortic valvular vegetation. There is no aortic valve stenosis There is no LVOT obstruction. No aortic regurgitation is present. There is no tricuspid stenosis. There is a moderate to severe amount of tricuspid regurgitation There is moderate pulmonary hypertension by echo RVSP is 50 to 55 mm of Hg , with RA mean of 10 to 15. The aortic root is not well visualized but is probably normal size. There is no pericardial effusion. MMode/2D Measurements & Calculations RVDd: 3.8 cm LVIDd: 5.2 cm FS: 9.5 % Ao root diam: 2.6 cm IVSd: 0.98 cm LVIDs: 4.7 cm EDV(Teich): 131.1 ml LVPWd: 0.96 cm ESV(Teich): 103.9 ml Ao root area: 5.4 cm2 EF(Teich): 20.7 % LA dimension: 4.6 cm Doppler Measurements & Calculations MV E max dione: MV P1/2t max dione: Ao V2 max: LV V1 max P.3 cm/sec 50.3 cm/sec 89.9 cm/sec 2.2 mmHg MV A max dione: MV P1/2t: 112.6 msec Ao max PG: LV V1 max: 52.8 cm/sec 3.2 mmHg 73.5 cm/sec MV E/A: 0.95 MVA(P1/2t): 2.0 cm2 MV dec slope: 130.9 cm/sec2 MV dec time: 0.36 sec PA V2 max: TR max dione: 62.2 cm/sec 316.3 cm/sec PA max PG: TR max P.0 mmHg 1.5 mmHg Left Ventricle The left ventricle is borderline dilated. There is normal left ventricular wall thickness. LV EF is 20%. Left ventricular systolic function is severely reduced. LV diastolic function not assessed. The LV apex is akinetic.The rest of the LV whiteside are severely hypokinetic. There is no thrombus. Right Ventricle The right ventricle is mildly dilated. The right ventricle is not well visualized secondary to technical limitations. The right ventricular systolic function is normal. Atria The right atrium is normal. The left atrium is mildly dilated. Mitral Valve There is no evidence of mitral valve prolapse. There is no vegetation seen on the mitral valve. There is no mitral valve stenosis. There is a mild amount of mitral regurgitation. Aortic Valve There is no aortic valvular vegetation. There is no aortic valve stenosis. There is no LVOT obstruction. No aortic regurgitation is present. Tricuspid Valve There is no tricuspid stenosis. There is a moderate to severe amount of tricuspid regurgitation. There is moderate pulmonary hypertension by echo. RVSP is 50 to 55 mm of Hg , with RA mean of 10 to 15. Pulmonic Valve There is no pulmonic valvular stenosis. There is a trace amount of pulmonic regurgitation. Great Vessels The aortic root is not well visualized but is probably normal size. Effusions There is no pericardial effusion. : TOÑITO SIMENTAL > Patricia Beth
[2017-12-04 17:11] VITALS: BP 91/62
[2017-12-04] MEDS ORDERED: KETAMINE HCL INJ 500 MG/10 ML VIAL IV PRN (18:01)
[2017-12-04] MEDS ORDERED: NOREPINEPHRINE BITARTRATE INJ/PF 4 MG/4 ML SDV IV ONE (18:10)
[2017-12-04] MEDS ORDERED: DOBUTAMINE HCL/D5W 500 MG/250 ML RTUINJ IV ONE (18:10)
[2017-12-04 18:15] LABS: ARTERIAL BLOOD BASE EXCESS -11.2 mmol/L; ARTERIAL BLOOD H2CO3 0.59 mmol/L (1.05-1.35); ARTERIAL BLOOD HCO3 11.7 mmol/L (20-26); ARTERIAL BLOOD O2 SATURATION 95.4 % (94-98); ARTERIAL BLOOD PH 7.39 (7.35-7.45); ARTERIAL BLOOD TOTAL CO2 12.3 mmol/L (21-25)
[2017-12-04 18:17] LABS: ARTERIAL BLOOD PCO2 19.6 mmHg (35-45)
--- NOTE | 2017-12-04 18:34 | PDOC TRANSFER SUMMARY ---
General Admission Date/PCP: 11/26/17 12:42 Resuscitation Status: Full Code - Transfer Diagnosis (1) Colonic mass Is this a current diagnosis for this admission?: Yes (2) Acute pancreatitis Is this a current diagnosis for this admission?: Yes (3) Anemia Is this a current diagnosis for this admission?: Yes (4) Cough Is this a current diagnosis for this admission?: Yes (5) GI bleed Is this a current diagnosis for this admission?: Yes (6) HLD (hyperlipidemia) Is this a current diagnosis for this admission?: Yes (7) Hypokalemia Is this a current diagnosis for this admission?: Yes (8) Hyponatremia Is this a current diagnosis for this admission?: Yes (9) Hypothyroid Is this a current diagnosis for this admission?: Yes (10) Neutrophilic leukocytosis Is this a current diagnosis for this admission?: Yes (11) Symptomatic anemia Is this a current diagnosis for this admission?: Yes (12) Thrombocytosis Is this a current diagnosis for this admission?: Yes (13) Cardiogenic postoperative shock Is this a current diagnosis for this admission?: Yes - Transfer Medications Home Medications: Fenofibric Acid [Fibricor] 105 mg PO DAILY 11/26/17 Levothyroxine Sodium [Synthroid] 0.125 mg PO DAILY 11/26/17 Losartan/Hydrochlorothiazide [Losartan-Hctz 100-25 mg Tab] 1 tab PO DAILY Transfer Medications: Current Medications Acetaminophen (Tylenol 325 Mg Tablet) 650 mg PO Q4HP PRN PRN Reason: PAIN OR FEVER Stop: 12/26/17 12:34 Benzonatate (Tessalon Perles 100 Mg Capsule) 100 mg PO Q8 [facility] Stop: 12/27/17 21:59 Last Admin: 12/04/17 14:02 Dose: Not Given Dextrose (Dextrose Inj 50% Syringe (25 Gm/50 Ml)) 12.5 gm IV PRN PRN; Protocol PRN Reason: FOR BG 50-69 IN ALERT PATIENT Stop: 12/30/17 09:27 Dextrose (Dextrose Inj 50% Syringe (25 Gm/50 Ml)) 25 gm IV PRN PRN; Protocol PRN Reason: See Label Comments Stop: 12/30/17 09:27 Enoxaparin Sodium (Lovenox Inj 40 Mg/0.4 Ml Disp.Syrin) 40 mg SUBCUT DAILY [facility] Stop: 01/03/18 09:59 Last Admin: 12/04/17 12:43 Dose: 40 mg Famotidine (Pepcid Inj/Pf 20 Mg/2 Ml Sdv) 20 mg IV Q12 [facility] Stop: 01/02/18 21:59 Last Admin: 12/04/17 12:41 Dose: 20 mg Fenofibrate (Tricor 48 Mg Tablet) 96 mg PO DAILY [facility] Stop: 12/27/17 09:59 Last Admin: 12/04/17 14:02 Dose: 96 mg Glucagon (Glucagen Inj 1 Mg Vial) 1 mg SUBCUT PRN PRN; Protocol PRN Reason: Evaluate for BG < 70 Stop: 12/30/17 09:27 Glucose (Glutose 40% Gel 15 Gm Tube) 15 gm PO PRN PRN; Protocol PRN Reason: For BG 50-69 in Alert Patient Stop: 12/30/17 09:27 Glucose (Glutose 40% Gel 15 Gm Tube) 30 gm PO PRN PRN; Protocol PRN Reason: FOR BG < 50 IN ALERT PATIENT Stop: 12/30/17 09:27 Hydrocodone Bit/Homatropine Methylb (Hycodan 5-1.5 Mg Tablet) 1 tab PO Q6HP PRN PRN Reason: PAIN Stop: 12/27/17 18:57 Last Admin: 12/02/17 23:59 Dose: 1 tab Ampicillin Sodium/Sulbactam (Sodium 3 gm/ Sodium Chloride) 100 mls @ 100 mls/ hr IV Q8 [facility] Stop: 12/04/17 21:59 Last Admin: 12/04/17 17:05 Dose: 3 gm Acetaminophen (Ofirmev Inj/Pf 1000 Mg/100 Ml Sdv) 100 mls @ 400 mls/hr IV Q6 [facility] Stop: 12/05/17 17:59 Last Admin: 12/04/17 17:42 Dose: 100 ml Hard Fat/Phenylephrine 40 mg/ (Dextrose) 250 mls @ 0 mls/hr IV CONTINUOUS PRN; Protocol; Titrate PRN Reason: THIS MED IS NOT "PRN" Stop: 01/02/18 18:25 Last Admin: 12/04/17 14:12 Dose: 40 mg Sodium Chloride (Nacl 0.9% 250 Ml Iv Soln) 250 mls @ 30 mls/hr IV .DURING TRANSFUSION PRN PRN Reason: THIS MED IS NOT "PRN" Stop: 12/04/17 18:44 Sodium Chloride (Nacl 0.9% 250 Ml Iv Soln) 250 mls @ 0 mls/hr IV CONTINUOUS PRN ; As Directed PRN Reason: AFTER EACH UNIT Stop: 12/04/17 18:44 Propofol (Diprivan Rtu 1000 Mg/100 Ml Inf.Bottle) 100 mls @ 0 mls/hr IV CONTINUOUS PRN; Protocol; Titrate PRN Reason: THIS MED IS NOT "PRN" Stop: 01/02/18 20:25 Last Admin: 12/04/17 17:44 Dose: 100 ml Metronidazole (Flagyl Rtu 500 Mg/Ns 100ml Premix) 100 mls @ 100 mls/hr IV Q6 [facility] Stop: 12/11/17 00:00 Last Admin: 12/04/17 17:43 Dose: 100 ml Imipenem/Cilastatin Sodium 500 (mg/ Sodium Chloride) 100 mls @ 100 mls/hr IV Q8 [facility] Stop: 12/10/17 21:59 Last Admin: 12/04/17 14:12 Dose: 500 mg Sodium Chloride (Nacl 0.9% 1000 Ml Iv Soln) 1,000 mls @ 150 mls/hr IV CONTINUOUS PRN PRN Reason: THIS MED IS NOT "PRN" Vasopressin 100 unit/ Dextrose 250 mls @ 0 mls/hr IV CONTINUOUS PRN; Protocol; Titrate PRN Reason: THIS MED IS NOT "PRN" Stop: 01/03/18 15:43 Last Admin: 12/04/17 16:30 Dose: 100 unit Ketamine HCl (Ketalar Inj 500 Mg/10 Ml Vial) 500 mg IV .CONTINUOUS PRN PRN Reason: THIS MED IS NOT "PRN" Stop: 12/11/17 18:00 Ketorolac Tromethamine (Toradol Inj/Pf 30 Mg/1 Ml Sdv) 30 mg IV Q6HP PRN Stop: 12/08/17 16:14 Levothyroxine Sodium (Synthroid 0.088 Mg Tablet) 0.088 mg PO Q6AM [facility] Stop: 01/01/18 05:59 Last Admin: 12/04/17 05:26 Dose: 0.088 mg Ondansetron HCl (Zofran Odt 4 Mg Tablet) 4 mg PO Q4HP PRN PRN Reason: FOR NAUSEA/VOMITING Stop: 12/29/17 18:21 - Allergies Allergies/Adverse Reactions: Aufpjgp-Fbf-Uat Reductase Inhibitor Allergy (Verified 11/26/17 11:07) Sulfa (Sulfonamide Antibiotics) Allergy (Verified 11/26/17 11:07) Hospital Course Hospital Course: 72-year-old female with a past medical history of Hypertension Hypothyroidism Hyperlipidemia. Admitted to the hospital on November 26 with malaise and fatigue. She went to see her primary care physician and was found to have multiple lab abnormalities and was asked to go to the emergency room. She was found to have thrombocytosis and neutrophilic leukocytosis with no fever. CAT scan of the abdomen and pelvis showed pancreatitis and severe diverticulosis of the sigmoid colon. Hemoglobin was trending down and she was heme positive. She was given packed red blood cells. An endoscopy was done by Dr. Coyle which was essentially normal. On December 01 he attempted a colonoscopy but the scope could not be extended beyond 45 cm. Barium enema showed markedly abnormal distal sigmoid colon with luminal narrowing mucosal irregularity and diverticulosis with inflammation with submucosal pocket of barium tracking along the distal sigmoid colon causing a double lumen appearance. She underwent left hemicolectomy on December 03 and large colonic mass was seen intraoperatively. She also had a colostomy. Postoperatively she was unable to be extubated and became hypotensive and was started on Doyle-Synephrine IV fluids and antibiotics. She did well overnight and all day today. However her urine output started declining towards the end of the day with only 200 cc in the past 12 hours. CVP is 16. Echocardiogram showed a left ventricular ejection fraction of 20% with akinetic apex. Is in cardiogenic shock and would benefit from transfer to a tertiary care center. I spoke to Dr. Dangelo at [facility] and he has accepted her in transfer. She will be flown out as soon as transportation is arranged. I spoke to her and he is aware. Physical Exam Vital Signs: Temp Pulse Resp BP Pulse Ox 97.6 F 95 16 91/62 L 98 12/04/17 16:00 12/04/17 16:00 12/04/17 16:00 12/04/17 16:00 12/04/17 16:00 Intake & Output 12/03/17 12/04/17 12/05/17 06:59 06:59 06:59 Intake Total 900 20101 Output Total 2915 300 Balance 900 7102 -300 Weight 70.2 kg 78.3 kg Additional comments: Elderly female intubated. On propofol and Phenylephrine drips. Lungs: Clear to auscultation bilaterally Cardiac: S1-S2 regular no murmurs heard + peripheral edema Abdomen: Soft, midline surgical scar with dressing in place Skin: Warm and dry Results Laboratory Results: 12/04/17 11:20 12/04/17 11:20 12/03/17 12/03/17 12/03/17 17:36 17:36 18:21 WBC 36.6 H* RBC 2.73 L Hgb 7.7 L Hct 23.9 L MCV 88 MCH 28.2 MCHC 32.2 RDW 15.9 H Plt Count 1261 H* Seg Neutrophils % Lymphocytes % Monocytes % Eosinophils % Basophils % Absolute Neutrophils Absolute Lymphocytes Absolute Monocytes Absolute Eosinophils Absolute Basophils Carbonic Acid 0.87 L HCO3/H2CO3 Ratio 17:1 ABG pH 7.33 L ABG pCO2 28.8 L ABG pO2 84.9 ABG HCO3 14.9 L ABG O2 Saturation 96.0 ABG Base Excess -9.9 FiO2 60% Sodium Potassium Chloride Carbon Dioxide Anion Gap BUN Creatinine Est GFR ( Amer) Est GFR (Non-Af Amer) Glucose Lactic Acid Calcium Phosphorus Magnesium 1.4 L Total Bilirubin AST ALT Alkaline Phosphatase Total Protein Albumin Blood Type Antibody Screen 12/03/17 12/03/17 12/03/17 19:38 19:38 23:25 WBC 49.7 H* RBC 2.84 L Hgb 8.0 L Hct 24.6 L MCV 87 MCH 28.0 MCHC 32.4 RDW 16.1 H Plt Count 1597 H* Seg Neutrophils % Not Reportable Lymphocytes % Not Reportable Monocytes % Not Reportable Eosinophils % Not Reportable Basophils % Not Reportable Absolute Neutrophils Not Reportable Absolute Lymphocytes Not Reportable Absolute Monocytes Not Reportable Absolute Eosinophils Not Reportable Absolute Basophils Not Reportable Carbonic Acid HCO3/H2CO3 Ratio ABG pH ABG pCO2 ABG pO2 ABG HCO3 ABG O2 Saturation ABG Base Excess FiO2 Sodium Potassium Chloride Carbon Dioxide Anion Gap BUN Creatinine Est GFR ( Amer) Est GFR (Non-Af Amer) Glucose Lactic Acid 1.2 Calcium Phosphorus Magnesium Total Bilirubin AST ALT Alkaline Phosphatase Total Protein Albumin Blood Type A POSITIVE Antibody Screen NEGATIVE 12/04/17 12/04/17 12/04/17 04:35 04:35 04:35 WBC 41.3 H* RBC 3.90 Hgb 11.3 L D Hct 33.6 L MCV 86 MCH 28.9 MCHC 33.5 RDW 15.1 H Plt Count 1477 H* Seg Neutrophils % Not Reportable Lymphocytes % Not Reportable Monocytes % Not Reportable Eosinophils % Not Reportable Basophils % Not Reportable Absolute Neutrophils Not Reportable Absolute Lymphocytes Not Reportable Absolute Monocytes Not Reportable Absolute Eosinophils Not Reportable Absolute Basophils Not Reportable Carbonic Acid 0.76 L HCO3/H2CO3 Ratio 19:1 ABG pH 7.39 ABG pCO2 25.2 L ABG pO2 133.0 H ABG HCO3 14.8 L ABG O2 Saturation 98.7 H ABG Base Excess -8.3 FiO2 50% Sodium 137.9 Potassium 4.3 D Chloride 111 H Carbon Dioxide 17 L Anion Gap 10 BUN 7 Creatinine 0.81 Est GFR ( Amer) > 60 Est GFR (Non-Af Amer) > 60 Glucose 201 H Lactic Acid Calcium 7.6 L Phosphorus 4.2 Magnesium 1.9 Total Bilirubin 1.0 AST 171 H ALT 77 H Alkaline Phosphatase 69 Total Protein 4.7 L Albumin 2.2 L Blood Type Antibody Screen 12/04/17 12/04/17 12/04/17 11:20 11:20 18:04 WBC 33.2 H* RBC 3.78 Hgb 10.8 L Hct 32.8 L MCV 87 MCH 28.5 MCHC 32.8 RDW 15.5 H Plt Count 1415 H* Seg Neutrophils % Lymphocytes % Monocytes % Eosinophils % Basophils % Absolute Neutrophils Absolute Lymphocytes Absolute Monocytes Absolute Eosinophils Absolute Basophils Carbonic Acid 0.59 L HCO3/H2CO3 Ratio 19:1 ABG pH 7.39 ABG pCO2 19.6 L* ABG pO2 75.0 L ABG HCO3 11.7 L ABG O2 Saturation 95.4 ABG Base Excess -11.2 FiO2 40 % Sodium Potassium Chloride Carbon Dioxide Anion Gap BUN Creatinine 0.83 Est GFR ( Amer) > 60 Est GFR (Non-Af Amer) > 60 Glucose Lactic Acid Calcium Phosphorus Magnesium Total Bilirubin AST ALT Alkaline Phosphatase Total Protein Albumin Blood Type Antibody Screen 12/01/17 09:25 Stool - Stool - Final 12/01/17 09:25 Stool - Stool Stool Culture - Final NO SALMONELLA, SHIGELLA, CAMPYLOBACTER, OR E.COLI 0157 RECOVERED. NEGATIVE FOR SHIGA TOXINS 1&2. 12/03/17 12/03/17 12/04/17 23:25 23:25 03:30 Creatine Kinase 129 190 H CK-MB (CK-2) 6.90 H Troponin I 1.720 NT-Pro-B Natriuret Pep 12/04/17 12/04/17 12/04/17 03:30 04:35 11:20 Creatine Kinase 313 H CK-MB (CK-2) 8.53 H Troponin I 2.310 NT-Pro-B Natriuret Pep 8590 H 12/04/17 11:20 Creatine Kinase CK-MB (CK-2) 7.33 H Troponin I 2.260 NT-Pro-B Natriuret Pep Impressions: Abdomen/Pelvis CT 11/28/17 00:00 IMPRESSION: Diffuse pancreatitis with peripancreatic fat stranding and fluid along the left gutter. No pancreatic masses. Chest CT 11/28/17 00:00 IMPRESSION: Small left pleural effusion. Otherwise negative. Barium Enema 12/02/17 08:00 IMPRESSION: Markedly abnormal distal sigmoid colon with luminal narrowing, mucosal irregularity from diverticulosis and inflammation. There is a submucosal pocket of barium tracking along the distal sigmoid colon causing a double-lumen appearance. Unable to evaluate the colon more proximal to the splenic flexure. Patient was unable to tolerate the pressure on the barium per rectum. Chest X-Ray 12/04/17 06:00 IMPRESSION: Persistent left lower lobe airspace disease Tubes and lines in good positioning Plan Time Spent: Greater than 30 Minutes - Transfer to [facility] ICU. Change to Levophed and Dobutamine gtt.
[2017-12-04 19:06] LABS: ALANINE AMINOTRANSFERASE 290 U/L (9-52); ALBUMIN 1.8 g/dL (3.5-5.0); ALKALINE PHOSPHATASE 69 U/L (38-126); ANION GAP 12 (5-19); ASPARTATE AMINO TRANSFERASE 711 U/L (14-36); BLOOD UREA NITROGEN 10 mg/dL (7-20); CALCIUM 7.7 mg/dL (8.4-10.2); CARBON DIOXIDE 13 mmol/L (22-30); CHLORIDE 113 mmol/L (98-107); CREATINE KINASE 300 U/L (30-135); GLUCOSE 157 mg/dL (75-110); MAGNESIUM 1.9 mg/dL (1.6-2.3); PHOSPHORUS 3.3 mg/dL (2.5-4.5); SODIUM 137.8 mmol/L (137-145); TOTAL PROTEIN 4.1 g/dL (6.3-8.2)
[2017-12-04 19:13] LABS: HEMATOCRIT 31.8 % (36.0-47.0); HEMOGLOBIN 10.8 g/dL (12.0-15.5); MEAN CORPUSCULAR HEMOGLOBIN 29.3 pg (27.0-33.4); MEAN CORPUSCULAR VOLUME 86 fl (80-97); RED BLOOD COUNT 3.69 10^6/uL (3.72-5.28); RED CELL DISTRIBUTION WIDTH 15.2 % (11.5-14.0)
[2017-12-04 19:17] LABS: CREATINE KINASE MB 5.99 ng/mL (<4.55); TROPONIN I 1.8 ng/mL
[2017-12-04 19:18] LABS: ABSOLUTE LYMPHOCYTES# (MANUAL) 2.2 10^3/uL (0.5-4.7); ABSOLUTE MONOCYTES # (MANUAL) 1.6 10^3/uL (0.1-1.4); ABSOLUTE NEUTROPHILS# (MANUAL) 27.5 10^3/uL (1.7-8.2); ANISOCYTOSIS SLIGHT; BAND NEUTROPHILS % (MANUAL) 8 % (3-5); BASOPHILS % (MANUAL) 0 % (0-2); EOSINOPHILS % (MANUAL) 0 % (0-6); LYMPHOCYTES % (MANUAL) 7 % (13-45); MONOCYTES % (MANUAL) 5 % (3-13); PLATELET COMMENT INCREASED; PLATELET LARGE PRESENT; SEGMENTED NEUTROPHILS % (MAN) 80 % (42-78); TOTAL CELLS COUNTED 100
[2017-12-04 19:20] LABS: POIKILOCYTOSIS SLIGHT; TARGET CELLS SLIGHT
[2017-12-04 19:26] LABS: WHITE BLOOD COUNT 31.2 10^3/uL (4.0-10.5)
[2017-12-04 19:27] LABS: PLATELET COUNT 1137 10^3/uL (150-450)
[2017-12-04] MEDS ORDERED: DEXTROSE 5%-WATER 250 ML with NOREPINEPHRINE BITARTRATE 4 MG IV PRN ×2 (19:59)
[2017-12-04] MEDS ORDERED: DOBUTAMINE HCL/D5W 500 MG/250 ML RTUINJ IV PRN (19:59)
== END 2017-12-04 21:33 | disposition short-term general hospital (02) | DRG 329 ==
LOC: ER 11:00 → EH 12:42 → UNDOADMIN 12:42 → 5 16:59 → ICU 12-03 17:02
PROVIDERS: ADMIT Pediatrics; ATTEND Pediatrics
PROC: 30233N1 Transfusion of Nonautologous Red Blood Cells into Peripheral Vein, Percutaneous Approach (ICD-10-PCS; 2017-11-28)
PROC: 0DJ08ZZ Inspection of Upper Intestinal Tract, Via Natural or Artificial Opening Endoscopic (ICD-10-PCS; 2017-11-30)
PROC: 0DJD8ZZ Inspection of Lower Intestinal Tract, Via Natural or Artificial Opening Endoscopic (ICD-10-PCS; 2017-12-01)
PROC: 0DBN0ZZ Excision of Sigmoid Colon, Open Approach (ICD-10-PCS; 2017-12-03)
PROC: 0DBP0ZZ Excision of Rectum, Open Approach (ICD-10-PCS; 2017-12-03)
PROC: 0D1L0Z4 Bypass Transverse Colon to Cutaneous, Open Approach (ICD-10-PCS; 2017-12-03)
PROC: 5A1945Z Respiratory Ventilation, 24-96 Consecutive Hours (ICD-10-PCS; 2017-12-03)
PROC: 30233N1 Transfusion of Nonautologous Red Blood Cells into Peripheral Vein, Percutaneous Approach (ICD-10-PCS; 2017-12-03)
PROC: 02H633Z Insertion of Infusion Device into Right Atrium, Percutaneous Approach (ICD-10-PCS; 2017-12-03)
PROC: 0DBM0ZZ Excision of Descending Colon, Open Approach (ICD-10-PCS; principal; 2017-12-03 13:00)
DX: K56.699 Other intestinal obstruction unspecified as to partial versus complete obstruction (principal); K57.21 Diverticulitis of large intestine with perforation and abscess with bleeding; K85.90 Acute pancreatitis without necrosis or infection, unspecified; T81.11XA Postprocedural cardiogenic shock, initial encounter; J18.9 Pneumonia, unspecified organism; I21.4 Non-ST elevation (NSTEMI) myocardial infarction; E87.1 Hypo-osmolality and hyponatremia; K92.1 Melena; E87.6 Hypokalemia; R19.09 Other intra-abdominal and pelvic swelling, mass and lump; D47.3 Essential (hemorrhagic) thrombocythemia; E78.5 Hyperlipidemia, unspecified; I10 Essential (primary) hypertension; E03.9 Hypothyroidism, unspecified; E86.0 Dehydration; D72.828 Other elevated white blood cell count; D64.9 Anemia, unspecified; K57.30 Diverticulosis of large intestine without perforation or abscess without bleeding; E78.1 Pure hyperglyceridemia; K64.4 Residual hemorrhoidal skin tags
CPT/HCPCS: 36415; 36430; 43235; 45378; 71010; 71045; 71260; 74177; 74270; 80048; 80053; 80061; 81206; 81207; 81270; 82272; 82550; 82553; 82565; 82607; 82728; 82746; 82803; 82962; 83540; 83550; 83605; 83690; 83735; 83880; 840; 84100; 84439; 84443; 84466; 84481; 84484; 85025; 85027; 85045; 85610; 85730; 86850; 86900; 86901; 86920; 87040; 87045; 87070; 87086; 87205; 87493; 88184; 88185; 88305; 88307; 93005; 93010; 93306; 94002; 94003; 99285; C1751; C9290; J0131; J0171; J0295; J0330; J0743; J1100; J1170; J1250; J1610; J1650; J1885; J2250; J2310; J2370; J2405; J2704; J2765; J3010; J3475; J3480; J3490; J7030; J7040; J7060; P9016; S0028; S0164

== ENCOUNTER 2018-01-15 17:17 | Emergency (ER) | payer MEDICARE ==
[2018-01-15] MEDS ORDERED: CIPROFLOXACIN HCL 500 MG TABLET PO ONE (19:24)
--- NOTE | 2018-01-15 19:27 | ER Document Report ---
ED General - General Chief Complaint: Urinary Problem Stated Complaint: URINARY PROBLEMS Time Seen by Provider: 01/15/18 19:18 Notes: Patient is a 72-year-old female currently residing in a nursing facility with an indwelling catheter since November 2017 who presents with concerns of gross hematuria in the catheter. Patient was transferred at the request of the nursing facility for this concern. She had a urinalysis performed 2 days ago which demonstrated a urinary tract infection. Patient is uncertain whether or not she has been started on antibiotics since that time. She denies any complaints or self other than some mild, constant suprapubic abdominal discomfort. She notes that pushing area seems to worsen the pain. Nothing improves the pain. She notes that she has had similar symptoms in the past with catheter associated urinary tract infection. She has not had any fever or constitutional symptoms. No flank tenderness. TRAVEL OUTSIDE OF THE [place] IN LAST 30 DAYS: No - Related Data Allergies/Adverse Reactions: Vnjjepc-Iff-Nun Reductase Inhibitor Allergy (Verified 11/26/17 11:07) Sulfa (Sulfonamide Antibiotics) Allergy (Verified 11/26/17 11:07) Past Medical History - General Information source: Patient - Social History Smoking Status: Never Smoker Frequency of alcohol use: None Drug Abuse: None Lives with: Prison Family History: Hyperlipidemia, Malignancy Patient has suicidal ideation: No Patient has homicidal ideation: No - Past Medical History Cardiac Medical History: Reports: Hx Hypercholesterolemia, Hx Hypertension Neurological Medical History: Denies: Hx Seizures Renal/ Medical History: Denies: Hx Peritoneal Dialysis GI Medical History: Reports: Hx Diverticulitis Past Surgical History: Reports: Hx Hysterectomy, Other - colonoscopy 8 years ago - Immunizations Hx Pneumococcal Vaccination: 11/30/14 Review of Systems - Review of Systems Notes: Constitutional: Negative for fever. HENT: Negative for sore throat. Eyes: Negative for visual changes. Cardiovascular: Negative for chest pain. Respiratory: Negative for shortness of breath. Gastrointestinal: Positive for suprapubic abdominal pain Genitourinary: Positive for hematuria Musculoskeletal: Negative for back pain. Skin: Negative for rash. Neurological: Negative for headaches, weakness or numbness. 10 point ROS negative except as marked above and in HPI. Physical Exam - Vital signs Vitals: Temp Pulse BP Pulse Ox 98.3 F 78 126/63 H 93 01/15/18 17:24 01/15/18 17:24 01/15/18 17:24 01/15/18 17:24 Interpretation: Normal Notes: PHYSICAL EXAMINATION: GENERAL: Well-appearing, well-nourished and in no acute distress. HEAD: Atraumatic, normocephalic. EYES: Pupils equal round and reactive to light, extraocular movements intact, sclera anicteric, conjunctiva are normal. ENT: nares patent, oropharynx clear without exudates. Moist mucous membranes. NECK: Normal range of motion, supple without lymphadenopathy LUNGS: Breath sounds clear to auscultation bilaterally and equal. No wheezes rales or rhonchi. HEART: Regular rate and rhythm without murmurs ABDOMEN: Soft, ostomy in the left lower quadrant, mild suprapubic abdominal tenderness to palpation, no other areas of localized pain, normoactive bowel sounds. No guarding, no rebound. No masses appreciated. EXTREMITIES: Normal range of motion, no pitting or edema. No cyanosis. NEUROLOGICAL: No focal neurological deficits. Moves all extremities spontaneously and on command. PSYCH: Normal mood, normal affect. SKIN: Warm, Dry, normal turgor, no rashes or lesions noted. Course - Re-evaluation Re-evalutation: 01/15/18 19:25 Patient presents with hematuria into her Butt catheter from a nursing facility but denies any other complaints. Examination is overall unremarkable, patient is well-appearing and in no distress, vitals within normal limits. Her vitals do not suggest acute sepsis. She has no pain to her flanks. No clinical history to suggest sepsis or pyelonephritis. A urinalysis was sent less than 2 days ago and shows signs consistent with a severe urinary tract infection with associated hematuria. The urine culture has resulted of Pseudomonas. It is sensitive to ciprofloxacin so patient will be started on a course of ciprofloxacin to treat this infection with associated hematuria. At this time will discharge with return precautions and follow-up recommendations. Verbal discharge instructions given a the bedside and opportunity for questions given. Medication warnings reviewed. Patient is in agreement with this plan and has verbalized understanding of return precautions and the need for primary care follow-up in the next 24-72 hours. - Vital Signs Vital signs: Temp Pulse Resp BP Pulse Ox 98.1 F 80 17 127/59 H 96 01/15/18 20:44 01/15/18 20:44 01/15/18 20:44 01/15/18 20:44 01/15/18 20:44 Discharge - Discharge Clinical Impression: Urinary tract infection Qualifiers: Urinary tract infection type: catheter-associated UTI Indwelling urinary catheter type: indwelling urethral catheter Encounter type: initial encounter Qualified Code(s): T83.511A - Infection and inflammatory reaction due to indwelling urethral catheter, initial encounter Hematuria Qualifiers: Hematuria type: gross Qualified Code(s): R31.0 - Gross hematuria Condition: Stable Disposition: HOME-SNF (ED ONLY) Additional Instructions: You have a pseudomonal urinary tract infection that will be treated with ciprofloxacin. The culture of your urine shows that this antibiotic should work well for the type of infection that you have. Please complete all antibiotics. Return if you develop fever, flank pain, persistent vomiting, or any other symptoms that are worrisome to you. Prescriptions: Ciprofloxacin HCl [Cipro 500 mg Tablet] 500 mg PO BID #10 tablet Referrals: DONNA BECKER MD [Primary Care Provider] - Follow up as needed
[2018-01-15 20:55] VITALS: BP 127/59
== END 2018-01-15 20:50 ==
LOC: ER 17:17
DX: T83.511A Infection and inflammatory reaction due to indwelling urethral catheter, initial encounter (principal); R31.0 Gross hematuria; R39.198 Other difficulties with micturition; R10.9 Unspecified abdominal pain; I10 Essential (primary) hypertension; Y84.6 Urinary catheterization as the cause of abnormal reaction of the patient, or of later complication, without mention of misadventure at the time of the procedure
CPT/HCPCS: 99284

== ENCOUNTER 2018-02-01 07:56 | Emergency (ER) | payer MEDICARE ==
[2018-02-01 09:32] LABS: HEMATOCRIT 25.6 % (36.0-47.0); HEMOGLOBIN 8.4 g/dL (12.0-15.5); MEAN CORPUSCULAR HEMOGLOBIN 33.3 pg (27.0-33.4); MEAN CORPUSCULAR HGB CONC 32.8 g/dL (32.0-36.0); MEAN CORPUSCULAR VOLUME 102 fl (80-97); RED BLOOD COUNT 2.52 10^6/uL (3.72-5.28); RED CELL DISTRIBUTION WIDTH 28.6 % (11.5-14.0); WHITE BLOOD COUNT 14.7 10^3/uL (4.0-10.5)
[2018-02-01 09:45] LABS: ALBUMIN 2.2 g/dL (3.5-5.0); ANION GAP 6 (5-19); BLOOD UREA NITROGEN 21 mg/dL (7-20); CALCIUM 9.4 mg/dL (8.4-10.2); CARBON DIOXIDE 23 mmol/L (22-30); CHLORIDE 109 mmol/L (98-107); GLUCOSE 83 mg/dL (75-110); SODIUM 138.1 mmol/L (137-145); TOTAL PROTEIN 5.6 g/dL (6.3-8.2)
[2018-02-01 09:46] LABS: ALANINE AMINOTRANSFERASE 21 U/L (9-52); ALKALINE PHOSPHATASE 104 U/L (38-126); ASPARTATE AMINO TRANSFERASE 35 U/L (14-36); BILIRUBIN,DIRECT 0.3 mg/dL (0.0-0.4); BILIRUBIN,TOTAL 0.5 mg/dL (0.2-1.3)
[2018-02-01 09:54] LABS: PLATELET COUNT 1465 10^3/uL (150-450)
[2018-02-01 09:55] LABS: AMORPHOUS SEDIMENT,URINE TRACE /HPF; APPEARANCE,URINE CLEAR; BILIRUBIN,URINE NEGATIVE (NEGATIVE); GLUCOSE, URINE 50 mg/dL (NEGATIVE); KETONES,URINE NEGATIVE (NEGATIVE); LEUKOCYTE ESTERASE,URINE NEGATIVE (NEGATIVE); NITRITE,URINE NEGATIVE (NEGATIVE); PROTEIN,URINE 100 mg/dL (NEGATIVE); URINE SPECIFIC GRAVITY 1.017; UROBILINOGEN,URINE NEGATIVE mg/dL (<2.0)
[2018-02-01 09:57] LABS: COLOR,URINE RED
[2018-02-01 10:03] LABS: ABSOLUTE LYMPHOCYTES# (MANUAL) 2.6 10^3/uL (0.5-4.7); ABSOLUTE NEUTROPHILS# (MANUAL) 10.4 10^3/uL (1.7-8.2); ANISOCYTOSIS 3+; BAND NEUTROPHILS % (MANUAL) 1 % (3-5); BASOPHILS % (MANUAL) 3 % (0-2); EOSINOPHILS % (MANUAL) 1 % (0-6); HYPERSEGMENTED NEUTROPHILS PRESENT; HYPOCHROMASIA 1+; LYMPHOCYTES % (MANUAL) 18 % (13-45); METAMYELOCYTES % (MANUAL) 1 % (0); MONOCYTES % (MANUAL) 7 % (3-13); POIKILOCYTOSIS 1+; POLYCHROMASIA 1+; SEGMENTED NEUTROPHILS % (MAN) 69 % (42-78); TOTAL CELLS COUNTED 100; TOXIC GRANULATION SLIGHT; TOXIC VACUOLATION PRESENT
[2018-02-01 10:04] LABS: OVALOCYTES 1+; PLATELET COMMENT INCREASED
[2018-02-01] MEDS ORDERED: LORAZEPAM INJ 2 MG/1 ML VIAL IV ONE (10:51)
--- NOTE | 2018-02-01 10:53 | ER Document Report ---
ED General - General Chief Complaint: Abnormal Lab Results Stated Complaint: URINARY ISSUES Time Seen by Provider: 02/01/18 08:00 Mode of Arrival: Medic Information source: Patient Notes: 72-year-old female with indwelling Butt catheter ostomy that was placed a few weeks ago presents with complaints of blood in her urine. Patient had recent anemia she denies any burning upon urination TRAVEL OUTSIDE OF THE [place] IN LAST 30 DAYS: No - HPI Onset: Just prior to arrival Onset/Duration: Sudden Quality of pain: No pain Severity: Mild Pain Level: Denies Associated symptoms: Other Exacerbated by: Denies Relieved by: Denies Similar symptoms previously: Yes Recently seen / treated by doctor: Yes - Related Data Allergies/Adverse Reactions: Axxpypt-Vvc-Emu Reductase Inhibitor Allergy (Verified 11/26/17 11:07) Sulfa (Sulfonamide Antibiotics) Allergy (Verified 11/26/17 11:07) Past Medical History - Social History Smoking Status: Never Smoker Cigarette use (# per day): No Chew tobacco use (# tins/day): No Smoking Education Provided: No Family History: Hyperlipidemia, Malignancy Patient has suicidal ideation: No Patient has homicidal ideation: No - Past Medical History Cardiac Medical History: Reports: Hx Hypercholesterolemia, Hx Hypertension Neurological Medical History: Denies: Hx Seizures Renal/ Medical History: Denies: Hx Peritoneal Dialysis GI Medical History: Reports: Hx Diverticulitis Past Surgical History: Reports: Hx Hysterectomy, Other - colonoscopy 8 years ago - Immunizations Hx Pneumococcal Vaccination: 11/30/14 Review of Systems - Review of Systems Notes: REVIEW OF SYSTEMS: CONSTITUTIONAL : Denies fever, chills, or sweats. Denies recent illness. EENT: Denies eye, ear, throat, or mouth pain or symptoms. Denies nasal or sinus congestion or discharge. Denies throat, tongue, or mouth swelling or difficulty swallowing. CARDIOVASCULAR: Denies chest pain. Denies palpitations or racing or irregular heart beat. Denies ankle edema. RESPIRATORY: Denies cough, cold, or chest congestion. Denies shortness of breath, difficulty breathing, or wheezing. GASTROINTESTINAL: ostomy GENITOURINARY: blood in urine FEMALE GENITOURINARY: Denies vaginal bleeding, heavy or abnormal periods, irregular periods. Denies vaginal discharge or odor. MUSCULOSKELETAL: Denies back or neck pain or stiffness. Denies joint pain or swelling. SKIN: Denies rash, lesions or sores. HEMATOLOGIC : Denies easy bruising or bleeding. LYMPHATIC: Denies swollen, enlarged glands. NEUROLOGICAL: Denies confusion or altered mental status. Denies passing out or loss of consciousness. Denies dizziness or lightheadedness. Denies headache. Denies weakness or paralysis or loss of use of either side. Denies problems with gait or speech. Denies sensory loss, numbness, or tingling. Denies seizures. PSYCHIATRIC: Denies anxiety or stress. Denies depression, suicidal ideation, or homicidal ideation. ALL OTHER SYSTEMS REVIEWED AND NEGATIVE. PHYSICAL EXAMINATION: GENERAL: Well-appearing, well-nourished and in no acute distress. HEAD: Atraumatic, normocephalic. EYES: Pupils equal round and reactive to light, extraocular movements intact, conjunctiva are normal. ENT: Nares patent, oropharynx clear without exudates. Moist mucous membranes. NECK: Normal range of motion, supple without lymphadenopathy LUNGS: Breath sounds clear to auscultation bilaterally and equal. No wheezes rales or rhonchi. HEART: Regular rate and rhythm without murmurs ABDOMEN: Soft, nontender, nondistended abdomen. No guarding, no rebound. No masses appreciated. left sided ostomy Female : deferred Musculoskeletal: Normal range of motion, no pitting or edema. No cyanosis. NEUROLOGICAL: Cranial nerves grossly intact. Normal speech, normal gait. Normal sensory, motor exams PSYCH: Normal mood, normal affect. SKIN: Warm, Dry, normal turgor, no rashes or lesions noted. Dictation was performed using [employer] voice recognition software Physical Exam - Vital signs Vitals: Temp Pulse BP Pulse Ox 98.2 F 77 135/53 H 98 02/01/18 08:06 02/01/18 08:06 02/01/18 08:06 02/01/18 08:06 Course - Re-evaluation Re-evalutation: 02/01/18 15:41 Patient's platelet count is noted to be significantly elevated, has been elevated in the past as well, Patient's urinalysis is consistent with a urinary tract infection which is probably fully related, Butt has been removed but new one was placed due to immobilization, I did also speak with surgeon regarding the patient's ostomy, he states he needs to stay in for at least another 3-5 months. Patient was made aware of all this. She will be discharged home on antibiotics with very strict return precautions her hemoglobin is stable at this time After performing a Medical Screening Examination, I estimate there is LOW risk for ACUTE APPENDICITIS, BOWEL OBSTRUCTION, ACUTE CHOLECYSTITIS, PERFORATED DIVERTICULITIS, INCARCERATED HERNIA, PANCREATITIS, PELVIC INFLAMMATORY DISEASE, PERFORATED ULCER, ECTOPIC , or TUBO-OVARIAN ABSCESS, thus I consider the discharge disposition reasonable. Also, there is no evidence or peritonitis , sepsis, or toxicity. I have reevaluated this patient multiple times and no significant life threatening changes are noted. The patient and I have discussed the diagnosis and risks, and we agree with discharging home with close follow-up with the understanding that symptoms and presentations can change. We also discussed returning to the Emergency Department immediately if new or worsening symptoms occur. We have discussed the symptoms which are most concerning (e.g., bloody stool, fever, changing or worsening pain, vomiting) that necessitate immediate return. - Vital Signs Vital signs: Temp Pulse Resp BP Pulse Ox 97.6 F 100 18 119/69 98 02/01/18 12:30 02/01/18 12:30 02/01/18 12:30 02/01/18 12:30 02/01/18 12:30 - Laboratory Result Diagrams: 02/01/18 09:05 02/01/18 09:05 Laboratory results interpreted by me: 02/01/18 02/01/18 02/01/18 09:05 09:05 09:24 WBC 14.7 H RBC 2.52 L Hgb 8.4 L Hct 25.6 L MCV 102 H RDW 28.6 H Plt Count 1465 H* Band Neutrophils % 1 L Basophils % (Manual) 3 H Metamyelocytes % 1 H Abs Neuts (Manual) 10.4 H Abs Basophils (Manual) 0.4 H Chloride 109 H BUN 21 H Total Protein 5.6 L Albumin 2.2 L Urine Protein 100 H Urine Glucose (UA) 50 H Urine Blood LARGE H - Diagnostic Test Radiology reviewed: Image reviewed Discharge - Discharge Clinical Impression: Encounter for ostomy care education, Thrombocytosis UTI (urinary tract infection) Qualifiers: Urinary tract infection type: acute cystitis Hematuria presence: with hematuria Qualified Code(s): N30.01 - Acute cystitis with hematuria Condition: Stable Disposition: HOME, SELF-CARE Instructions: Urinary Tract Infection ([facility]) Prescriptions: Ciprofloxacin HCl [Cipro 500 mg Tablet] 500 mg PO BID #20 tablet Referrals: DONNA BECKER MD [Primary Care Provider] - Follow up tomorrow
[2018-02-01 12:50] VITALS: BP 119/69
== END 2018-02-01 12:51 | disposition home or self-care (01) ==
LOC: ER 07:56
DX: N30.01 Acute cystitis with hematuria (principal); D47.3 Essential (hemorrhagic) thrombocythemia; I10 Essential (primary) hypertension; Z88.8 Allergy status to other drugs, medicaments and biological substances; Z88.2 Allergy status to sulfonamides; Z98.890 Other specified postprocedural states
CPT/HCPCS: 99284; 51702; 96374; 86900; 86901; 36415; 87086; 86850; 85025; 87088; 80053; 81001; 87186; J2060

== ENCOUNTER 2018-03-09 13:50 | Emergency (ER) | payer MEDICARE, OTHER ==
[2018-03-09 15:09] LABS: APPEARANCE,URINE CLOUDY; BILIRUBIN,URINE NEGATIVE (NEGATIVE); COLOR,URINE YELLOW; GLUCOSE, URINE NEGATIVE (NEGATIVE); KETONES,URINE NEGATIVE (NEGATIVE); LEUKOCYTE ESTERASE,URINE LARGE (NEGATIVE); NITRITE,URINE NEGATIVE (NEGATIVE); PROTEIN,URINE 30 mg/dL (NEGATIVE); UROBILINOGEN,URINE NEGATIVE mg/dL (<2.0)
[2018-03-09 15:26] LABS: ABSOLUTE BASOPHILS # (AUTO) 0.1 10^3/uL (0.0-0.2); ABSOLUTE EOSINOPHILS # (AUTO) 0.1 10^3/uL (0.0-0.6); ABSOLUTE LYMPHOCYTES (AUTO) 1.3 10^3/uL (0.5-4.7); ABSOLUTE MONOCYTES (AUTO) 1.3 10^3/uL (0.1-1.4); ABSOLUTE NEUT (AUTO) 11.1 10^3/uL (1.7-8.2); BASOPHILS % (AUTO) 0.8 % (0-2); EOSINOPHILS % (AUTO) 0.5 % (0-6); HEMATOCRIT 27.2 % (36.0-47.0); LYMPHOCYTES % (AUTO) 9.3 % (13-45); MEAN CORPUSCULAR HEMOGLOBIN 35.9 pg (27.0-33.4); MONOCYTES % (AUTO) 9.1 % (3-13); SEGMENTED NEUTROPHILS % (AUTO) 80.3 % (42-78); TOTAL CELLS COUNTED % (AUTO) 100 %; WHITE BLOOD COUNT 13.8 10^3/uL (4.0-10.5)
--- NOTE | 2018-03-09 15:28 | ER Document Report ---
ED General - General Chief Complaint: Abdominal Distention Stated Complaint: ABDOMINAL PAIN Time Seen by Provider: 03/09/18 14:17 TRAVEL OUTSIDE OF THE [place] IN LAST 30 DAYS: No - HPI Patient complains to provider of: Abdominal distention Notes: Patient has a significant past medical history for necrotizing pancreatitis history of colectomy due to diverticulitis patient has a diverting ileostomy apparently is coming into the ER today for abdominal distention from local nursing care facility. Upon my evaluation patient states she also does not know why she was sent to the ER patient does state that her abdomen is more distended than normal she is unaware when last time to empty her ileostomy bag. Patient otherwise denies any pain fevers chills nausea or vomiting. Patient resting comfortably upon my evaluation - Related Data Allergies/Adverse Reactions: Xewupst-Ain-Dpj Reductase Inhibitor Allergy (Verified 03/09/18 14:21) Sulfa (Sulfonamide Antibiotics) Allergy (Verified 03/09/18 14:21) Past Medical History - Social History Smoking Status: Unknown if Ever Smoked Chew tobacco use (# tins/day): No Frequency of alcohol use: None Drug Abuse: None Family History: Hyperlipidemia, Malignancy Patient has suicidal ideation: No Patient has homicidal ideation: No - Past Medical History Cardiac Medical History: Reports: Hx Hypercholesterolemia, Hx Hypertension Neurological Medical History: Denies: Hx Seizures Renal/ Medical History: Denies: Hx Peritoneal Dialysis GI Medical History: Reports: Hx Diverticulitis Past Surgical History: Reports: Hx Hysterectomy, Other - colonoscopy 8 years ago - Immunizations Hx Pneumococcal Vaccination: 11/30/14 Review of Systems - Review of Systems Constitutional: No symptoms reported EENT: No symptoms reported Cardiovascular: No symptoms reported Respiratory: No symptoms reported Gastrointestinal: Abdomen distended Genitourinary: No symptoms reported Female Genitourinary: No symptoms reported Musculoskeletal: No symptoms reported Skin: No symptoms reported Hematologic/Lymphatic: No symptoms reported Neurological/Psychological: No symptoms reported Physical Exam - Vital signs Vitals: Temp Pulse Resp BP Pulse Ox 97.6 F 76 18 134/59 H 95 03/09/18 14:12 03/09/18 14:12 03/09/18 14:12 03/09/18 14:12 03/09/18 14:12 Interpretation: Normal - General General appearance: Appears well, Alert - HEENT Head: Normocephalic, Atraumatic Eyes: Normal Pupils: PERRL - Respiratory Respiratory status: No respiratory distress Chest status: Nontender Breath sounds: Normal Chest palpation: Normal - Cardiovascular Rhythm: Regular Heart sounds: Normal auscultation Murmur: No - Abdominal Inspection: Normal Distension: Distended Bowel sounds: Normal Tenderness: Nontender Organomegaly: No organomegaly Notes: Patient has ileostomy left lower quadrant stoma is pink with a what looks like to be a new ostomy bag there is no output from the ostomy at this time. No signs of ischemia of the stoma. Patient does have a midline incision with a scant amount of purulent drainage in the center of the midline incision however once is wiped away was like to be good granulation tissue underneath. No overt signs of infection or wound cellulitis. Patient also has indwelling Butt catheter. Abdomen is distended however is nontender. 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 No: Ayush's sign - Neurological Neuro grossly intact: Yes Cognition: Normal Orientation: AAOx4 Olu Coma Scale Eye Opening: Spontaneous [place]ford Coma Scale Verbal: Oriented [place] Coma Scale Motor: Obeys Commands Olu Coma Scale Total: 15 Speech: Normal Motor strength normal: LUE, RUE, LLE, RLE Sensory: Normal - Psychological Associated symptoms: Normal affect, Normal mood - Skin Skin Temperature: Warm Skin Moisture: Dry Skin Color: Normal Course - Re-evaluation Re-evalutation: 03/09/18 15:27 Patient does have an amount of abdominal distention significant past medical history multiple abdominal surgeries and will listen to be no ileostomy output. Cannot find any output in the [facility] records patient's abdomen is nontender no signs of fever patient does not look toxic at this time. We will get a CAT scan with oral contrast the patient can tolerate and will also get a quick KUB for further evaluation laboratories will be sent we will get lactic acid with for underlying sepsis urine does look cloudy however patient with a history of chronic UTIs more likely this is colonization will send a urine depending on CBC this time patient is afebrile we will hold off on current treatment 03/09/18 22:00 Slight leukocytosis elevation in platelets was chronic for the patient. Also patient has hypokalemia replaced orally. No signs of fever although the urinalysis does have bacteria we will send a culture but did not fill the patient is asymptomatic and not having any abdominal pain that we can hold off on current treatment. More likely colonization. CT scan of the abdomen showed diffuse ascites no acute changes. Did inform the patient patient otherwise states she is comfortable going back to her nursing care facility. Transfer will be arranged - Vital Signs Vital signs: Temp Pulse Resp BP Pulse Ox 97.6 F 76 20 140/75 H 94 03/09/18 20:10 03/09/18 14:12 03/09/18 20:04 03/09/18 20:04 03/09/18 20:04 - Laboratory Result Diagrams: 03/09/18 15:10 03/09/18 15:24 Laboratory results interpreted by me: 03/09/18 03/09/18 03/09/18 14:46 15:10 15:24 WBC 13.8 H RBC 2.50 L Hgb 9.0 L Hct 27.2 L MCV 109 H D MCH 35.9 H RDW 34.0 H Plt Count 1447 H* Seg Neutrophils % 80.3 H Lymphocytes % 9.3 L Absolute Neutrophils 11.1 H Potassium 2.6 L* BUN 33 H Est GFR ( Amer) 59 L Est GFR (Non-Af Amer) 49 L Glucose 132 H Direct Bilirubin 0.6 H AST 54 H Albumin 2.7 L Urine Protein 30 H Urine Blood LARGE H Ur Leukocyte Esterase LARGE H Discharge - Discharge Clinical Impression: Hypokalemia, Thrombocytosis, Abdominal ascites Condition: Good Disposition: HOME, SELF-CARE Additional Instructions: Patient was seen and evaluated here in the ER. Patient denies any complaints. Patient did state her abdomen was slightly bigger than usual. A CT scan does not show any acute findings. Patient has diffuse abdominal ascites with chronic surgical changes along with a retained mass in the pancreas. Laboratory values shows chronic elevation in platelets along with chronic hypokalemia. Potassium was replaced orally. Patient was able tolerate p.o. here has still no complaints. Urinalysis does show increasing white count with bacteria. Because the patient does not have a fever or significant white count will send for culture but would not treat at this time as I think this is all contamination and colonization. Patient will be discharged back to her facility should follow-up with her primary care physician in the next 3-5 days Referrals: DONNA BECKER MD [Primary Care Provider] - Follow up in 3-5 days
--- NOTE | 2018-03-09 15:48 | RADIOLOGY REPORT (SQ) ---
EXAM DESCRIPTION: KUB/ABDOMEN (SINGLE VIEW) COMPLETED DATE/TIME: 03/09/2018 3:38 pm REASON FOR STUDY: abd distension COMPARISON: CT abdomen pelvis 02/08/2018, 11/28/2017 NUMBER OF VIEWS: One view. TECHNIQUE: Supine radiographic image of the abdomen acquired. LIMITATIONS: None. FINDINGS: BOWEL GAS PATTERN: Normal bowel gas pattern. No dilated loops. Left lower quadrant colost nithya. CALCIFICATIONS: No suspicious calcifications. SOFT TISSUES: No gross mass or suggestion of organomegaly. HARDWARE: Left lower quadrant colostomy BONES: Osteopenic. Degenerative changes posterior elements L4-5 and L5-S1 OTHER: No other significant finding. IMPRESSION: Grossly nonobstructive bowel gas pattern TECHNICAL DOCUMENTATION: JOB ID: [id number] [employer]- All Rights Reserved Reading location - IP/workstation name: [email or web address]
[2018-03-09 15:53] LABS: MEAN CORPUSCULAR VOLUME 109 fl (80-97)
[2018-03-09 16:01] LABS: ALANINE AMINOTRANSFERASE 16 U/L (9-52); ALBUMIN 2.7 g/dL (3.5-5.0); ALKALINE PHOSPHATASE 99 U/L (38-126); ANION GAP 11 (5-19); ASPARTATE AMINO TRANSFERASE 54 U/L (14-36); BILIRUBIN,DIRECT 0.6 mg/dL (0.0-0.4); BILIRUBIN,TOTAL 0.6 mg/dL (0.2-1.3); BLOOD UREA NITROGEN 33 mg/dL (7-20); CALCIUM 9.1 mg/dL (8.4-10.2); CARBON DIOXIDE 26 mmol/L (22-30); CHLORIDE 103 mmol/L (98-107); GLUCOSE 132 mg/dL (75-110); LIPASE 292.8 U/L (23-300); SODIUM 140.2 mmol/L (137-145); TOTAL PROTEIN 7.1 g/dL (6.3-8.2)
[2018-03-09 16:05] LABS: POTASSIUM 2.6 mmol/L (3.6-5.0)
[2018-03-09 16:06] LABS: ANISOCYTOSIS 3+; OVALOCYTES SLIGHT; PLATELET COMMENT INCREASED; POIKILOCYTOSIS 2+; TARGET CELLS SLIGHT; TOXIC GRANULATION SLIGHT
[2018-03-09 16:10] LABS: PLATELET COUNT 1447 10^3/uL (150-450)
[2018-03-09] MEDS ORDERED: MAGNESIUM SULFATE/D5W 1 GM/100 ML RTUPB IV ONE (16:35)
[2018-03-09] MEDS ORDERED: POTASSIUM CHLORIDE 10 MEQ TABLET.SA PO ONE (17:50)
--- NOTE | 2018-03-09 18:04 | RADIOLOGY REPORT (SQ) ---
EXAM DESCRIPTION: CT LTD RENAL STONE PROTOCOL ON COMPLETED DATE/TIME: 03/09/2018 5:36 pm REASON FOR STUDY: abd distension COMPARISON: 02/08/2018. TECHNIQUE: CT scan of the abdomen and pelvis performed without intravenous or oral contrast. Images reviewed with lung, soft tissue, and bone windows. Reconstructed coronal and sagittal MPR images revi ewed. All images stored on PACS. All CT scanners at this facility use dose modulation, iterative reconstruction, and/or weight based d osing when appropriate to reduce radiation dose to as low as reasonably achievable (ALARA). [facility]: Dose Right [facility]: CareDose [facility]: Dose Right [facility]: Teradose 4D [facility]: [employer] RADIATION DOSE: CT Rad equipment meets quality standard of care and radiation dose reduction techniq ues were employed. CTDIvol: 13.4 mGy. DLP: 747 mGy-cm.mGy. LIMITATIONS: None. FINDINGS: LOWER CHEST: Bilateral pleural effusions with density in the lung bases. NON-CONTRASTED LIVER, SPLEEN, ADRENALS: Evaluation limited by lack of IV contrast. No identified sign ificant masses. PANCREAS: The heterogenous density in the tail of the pancreas seen on prior CT is unchanged or may b e slightly smaller. No peripancreatic inflammatory changes. GALLBLADDER: No identified stones by CT criteria. No inflammatory changes to suggest cholecystitis. RIGHT KIDNEY AND URETER: No suspicious masses. Assessment limited by lack of IV contrast. No signif icant calcifications. No hydronephrosis or hydroureter. LEFT KIDNEY AND URETER: No suspicious masses. Assessment limited by lack of IV contrast. No signifi cant calcifications. No hydronephrosis or hydroureter. AORTA AND RETROPERITONEUM: No aneurysm. No retroperitoneal masses or adenopathy. BOWEL AND PERITONEAL CAVITY: Previous bowel surgery with colostomy in the left lower quadrant. No ob vious masses or inflammatory changes. Large amount of ascites. APPENDIX: Normal. PELVIS, BLADDER, AND ABDOMINAL WALL:No abnormal masses. Large amount of ascites. Catheter in the bl adder. BONES: No significant findings. OTHER: No other significant finding. IMPRESSION: 1. LARGE AMOUNT OF ASCITES. SIMILAR TO THE PRIOR STUDY. 2. HETEROGENOUS DENSITY IN THE TAIL OF THE PANCREAS, UNCHANGED OR SLIGHTLY IMPROVED. 3. BILATERAL PLEURAL EFFUSIONS WITH COMPRESSIVE ATELECTASIS AND/OR INFILTRATE IN THE LUNG BASES. 4. SURGICAL CHANGES WITH LEFT-SIDED COLOSTOMY. 5. NO OTHER SIGNIFICANT FINDING. RELATIVELY LITTLE CHANGE SINCE THE PRIOR CT. COMMENT: Quality ID # [id number]: Final reports with documentation of one or more dose reduction techniques (e.g., Automated exposure control, adjustment of the mA and/or kV according to patient size, use of iterative reconstruction technique) TECHNICAL DOCUMENTATION: JOB ID: [id number] [employer]- All Rights Reserved Reading location - IP/workstation name: [email or web address]
[2018-03-09 20:10] VITALS: BP 140/75
== END 2018-03-09 20:13 | disposition home or self-care (01) ==
LOC: ER 13:50
DX: R14.0 Abdominal distension (gaseous) (principal); E87.6 Hypokalemia; D47.3 Essential (hemorrhagic) thrombocythemia; R18.8 Other ascites; E78.00 Pure hypercholesterolemia, unspecified; I10 Essential (primary) hypertension; Z93.2 Ileostomy status; Z88.2 Allergy status to sulfonamides; Z90.710 Acquired absence of both cervix and uterus
CPT/HCPCS: 99284; 96365; 36415; 87040; 87086; 87070; 87205; 83690; 83735; 85025; 87077; 87088; 80053; 81001; 87186; 83605; 74018; 76380; J3475; A9270

== ENCOUNTER 2018-03-11 00:30 | Emergency (ER) | payer MEDICARE ==
--- NOTE | 2018-03-11 04:57 | ER Document Report ---
ED General - General Chief Complaint: Abnormal Lab Results Stated Complaint: ABNORMAL LABS Time Seen by Provider: 03/11/18 00:56 TRAVEL OUTSIDE OF THE [place] 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 I indicated to nursing staff that the patient had anaerobes that they would definitely need to come back to the ER for further evaluation. The correction was called upon to get the chart and evaluating the results myself I found that the patient had anaerobes on her wound culture gram-positive cocci in 1 bottle and gram-negative rods in her urine. Upon interviewing patient patient was still delightful patient denies any complaints. Patient resting comfortably denies fevers chills nausea vomiting diarrhea abdominal pain. - Related Data Allergies/Adverse Reactions: Rprufed-Ire-Dxb Reductase Inhibitor Allergy (Verified 03/11/18 02:37) Sulfa (Sulfonamide Antibiotics) Allergy (Verified 03/11/18 02:37) Past Medical History - Social History Smoking Status: Never Smoker Frequency of alcohol use: Rare Drug Abuse: None Family History: Hyperlipidemia, Malignancy Patient has suicidal ideation: No Patient has homicidal ideation: No - Past Medical History Cardiac Medical History: Reports: Hx Hypercholesterolemia, Hx Hypertension Neurological Medical History: Denies: Hx Seizures Renal/ Medical History: Denies: Hx Peritoneal Dialysis GI Medical History: Reports: Hx Diverticulitis Past Surgical History: Reports: Hx Hysterectomy, Other - colonoscopy 8 years ago - Immunizations Hx Pneumococcal Vaccination: 11/30/14 Review of Systems - Review of Systems Constitutional: Other - Abnormal labs EENT: No symptoms reported Cardiovascular: No symptoms reported Respiratory: No symptoms reported Gastrointestinal: No symptoms reported Genitourinary: No symptoms reported Female Genitourinary: No symptoms reported Musculoskeletal: No symptoms reported Skin: No symptoms reported Hematologic/Lymphatic: No symptoms reported Neurological/Psychological: No symptoms reported Physical Exam - Vital signs Vitals: Temp Pulse Resp BP Pulse Ox 97.4 F 79 16 139/47 H 98 03/11/18 00:37 03/11/18 00:37 03/11/18 00:37 03/11/18 00:37 03/11/18 00:37 Interpretation: Normal - General General appearance: Appears well, Alert - HEENT Head: Normocephalic, Atraumatic Eyes: Normal Pupils: PERRL - Respiratory Respiratory status: No respiratory distress Chest status: Nontender Breath sounds: Normal Chest palpation: Normal - Cardiovascular Rhythm: Regular Heart sounds: Normal auscultation Murmur: No - Abdominal Inspection: Normal, Other - Patient also has a ileostomy left lower quadrant with pink stoma stool in ostomy bag 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 This was removed again granulation tissue of various stages with no signs of overt wound infection no signs of cellulitis around the wound. Distension: No distension Bowel sounds: Normal Tenderness: Nontender Organomegaly: No organomegaly - Genitourinary Notes: Indwelling Butt - Back Back: Normal, Nontender - Extremities General upper extremity: Normal inspection, Nontender, Normal color, Normal ROM , Normal temperature General lower extremity: Normal inspection, Nontender, Normal color, Normal temperature - Neurological Neuro grossly intact: Yes Cognition: Normal Orientation: AAOx4 [place] Coma Scale Eye Opening: Spontaneous [place] Coma Scale Verbal: Oriented [place] Coma Scale Motor: Obeys Commands [place] Coma Scale Total: 15 Speech: Normal Motor strength normal: LUE, RUE, LLE, RLE Sensory: Normal - Psychological Associated symptoms: Normal affect, Normal mood - Skin Skin Temperature: Warm Skin Moisture: Dry Skin Color: Normal Course - Re-evaluation Re-evalutation: 03/11/18 05:05 Unfortunately the initial report was that the patient had anaerobes in her blood cultures. This will be a major concern however after the patient has arrived in them looking at the microbiology at this time the patient being afebrile I do not see a need to start the patient on antibiotics. Patient also does not look septic or toxic upon my evaluation very delightful and pleasant. I do feel more likely the Gram cocci in 1 bottle will return is contamination to continue to follow this we will go ahead and draw another set of blood cultures however I do not see any need for any other laboratory evaluation are radiographs to be performed. Again although the urine is growing out gram- negative rods patient does have a history of colonization with VRE and indwelling Butt catheter again with no fever do not see need for antibiotics at this time. Patient will be discharged home - Vital Signs Vital signs: Temp Pulse Resp BP Pulse Ox 97.4 F 79 16 139/47 H 98 03/11/18 00:37 03/11/18 00:37 03/11/18 00:37 03/11/18 00:37 03/11/18 00:37 Discharge - Discharge Clinical Impression: Lab abnormality, Chronic abdominal wall wound Additional Instructions: Please make sure that the patient's abdominal wall wound has a dressing change at least every 24 hours. Patient return to ER and was reevaluated. Patient had a blood culture showing gram-positive cocci only in 1 bottle. More likely this is contamination. With the patient still afebrile a second set of blood cultures were drawn. We will continue to follow these again as the patient is afebrile do not see any need for antibiotics at this time. Patient also had a urine culture performed at last visit. This is currently growing out bacteria however as stated in the last visit patient again does not have a fever has a chronic indwelling Butt catheter therefore this is more likely colonization. If the patient develops a fever she will need to be reevaluated by her physician. We will continue to monitor the patient's blood cultures. Referrals: DONNA BECKER MD [Primary Care Provider] - Follow up as needed
[2018-03-11 06:34] VITALS: BP 122/76
== END 2018-03-11 06:43 | disposition home or self-care (01) ==
LOC: ER 00:30
DX: T81.4XXA Infection following a procedure, initial encounter (principal); B96.89 Other specified bacterial agents as the cause of diseases classified elsewhere; R10.9 Unspecified abdominal pain; G89.29 Other chronic pain; R31.9 Hematuria, unspecified; Z93.2 Ileostomy status; I10 Essential (primary) hypertension
CPT/HCPCS: 87040; 99283